=== PATIENT | female | born 1955 | race Caucasian/White ===

== ENCOUNTER 2018-03-11 07:59 | Emergency (ER) | payer MEDICAID ==
[2018-03-11 09:22] LABS: ADD MAN DIFF? NO
[2018-03-11 09:25] LABS: BASO % 0 % (0-3); EOS # 0.1 x10^3/uL (0.0-0.7); EOS % 2 % (0-3); HEMATOCRIT 30.2 % (36.0-47.0); HEMOGLOBIN 10.5 g/dL (12.0-15.5); LYMPH % 33 % (24-48); MEAN CORPUSCULAR HEMOGLOBIN 31 pg (25-35); MEAN CORPUSCULAR HGB CONC 35 g/dL (31-37); MEAN CORPUSCULAR VOLUME 90 fL (79-100); MONO # 0.8 x10^3/uL (0.0-1.1); MONO % 14 % (0-9); NEUT % 51 % (31-73); PLATELET COUNT 351 x10^3/uL (140-400); RED BLOOD COUNT 3.36 x10^6/uL (3.50-5.40); RED CELL DISTRIBUTION WIDTH 14.5 % (11.5-14.5); WHITE BLOOD COUNT 5.9 x10^3/uL (4.0-11.0)
[2018-03-11 09:35] LABS: ANION GAP 8 (6-14); BLOOD UREA NITROGEN 7 mg/dL (7-20); CALCIUM 8.4 mg/dL (8.5-10.1); CARBON DIOXIDE 28 mmol/L (21-32); CHLORIDE 95 mmol/L (98-107); CREATININE 0.6 mg/dL (0.6-1.0); GLUCOSE 92 mg/dL (70-99); POTASSIUM 4.6 mmol/L (3.5-5.1); SODIUM 131 mmol/L (136-145)
[2018-03-11 09:42] LABS: ALBUMIN 3.6 g/dL (3.4-5.0); ALK PHOS 92 U/L (46-116); ALT (SGPT) 21 U/L (14-59); AST (SGOT) 13 U/L (15-37); DIRECT BILIRUBIN < 0.1 mg/dL (0.0-0.2); LIPASE 152 U/L (73-393); TOTAL BILIRUBIN 0.2 mg/dL (0.2-1.0); TOTAL PROTEIN 7.1 g/dL (6.4-8.2); VAL ACID 83 mcg/mL (50-100)
[2018-03-11 09:55] LABS: INR 1.1 (0.8-1.1); PARTIAL THROMBOPLASTIN TIME 32 SEC (24-38); PROTHROMBIN TIME PATIENT 13.3 SEC (11.7-14.0)
[2018-03-11 10:04] LABS: BILIRUBIN,URINE NEGATIVE (NEG); CLARITY,URINE CLEAR; COLOR,URINE YELLOW; GLUCOSE,URINE NEGATIVE (NEG); NITRITE,URINE NEGATIVE (NEG); PH,URINE 7.5; PROTEIN,URINE NEGATIVE (NEG-TRACE); UROBILINOGEN,URINE 0.2 mg/dL (0.2 mg/dL)
[2018-03-11 10:12] LABS: SQUAMOUS EPITHELIAL CELL,UR FEW /LPF
[2018-03-11 10:13] LABS: BACTERIA,URINE 0 /HPF (0-FEW); RBC,URINE 0 /HPF (0-2); WBC,URINE OCC /HPF (0-4)
[2018-03-11] MEDS: IOHEXOL 300 MG/ML 100ML VIAL. IV (10:20)
[2018-03-11] MEDS ORDERED: CONTRAST GIVEN. MC (10:30)
[2018-03-11] MEDS: MORPHINE SULFATE 4 MG/ML DISP.SYRIN. IV (10:46)
== END 2018-03-11 13:52 | disposition home or self-care (01) ==
LOC: ER 07:59
DX: R10.13 Epigastric pain (principal); F31.9 Bipolar disorder, unspecified; E78.00 Pure hypercholesterolemia, unspecified; J44.9 Chronic obstructive pulmonary disease, unspecified; I25.2 Old myocardial infarction; F17.200 Nicotine dependence, unspecified, uncomplicated; Z86.73 Personal history of transient ischemic attack (TIA), and cerebral infarction without residual deficits; Z90.49 Acquired absence of other specified parts of digestive tract
CPT/HCPCS: 36415; 74177; 76705; 80048; 80076; 80164; 81001; 83690; 85025; 85610; 85730; 96374; 99285-25; J2270; Q9967

== ENCOUNTER 2018-09-08 01:57 | Emergency (ER) | payer MEDICAID ==
[~2018-09-08] VITALS: Ht 149.9 cm; Wt 72.6 kg
[~2018-09-08 01:57] MED LIST: ACET325T9 PO; ALBU2.5V8 INH; ATOR40TA59 PO; CALC200T3 PO; CLOP75TA PO; CYCL10TA2 PO; DIVA500T17 PO; DOCU-109 PO; FLUT1DIS IH; FURO20TA3 PO; LIDO700A21 TP; MEMA10TA PO; OLAN20TA15 PO; SERT100T PO; SERT50TA8 PO; TRAM50TA PO; TRAZ-86 PO
[2018-09-08] MEDS ORDERED: HYDROcodone/APAP 5/325MG 1 TAB TABLET PO ONE (02:30)
--- NOTE | 2018-09-08 03:04 | PHYS DOC ---
Past Medical History Past Medical History: Heart Disease, Stroke Additional Past Medical Histor: Osteopenia,Osteoporosis Past Surgical History: Appendectomy, Oophorectomy Additional Past Surgical Histo: R)ovary,adhesions around sm.intestine removed Alcohol Use: None Drug Use: None Adult General Chief Complaint Chief Complaint: MECHANICAL FALL HPI HPI Patient is a 62-year-old female who presents via EMS after reportedly falling to her knees and bumping her right shoulder against her roommate's bed. Patient recently had fractured her shoulder and has been scheduled for surgery of the shoulder. Patient complains of bilateral knee pain and right shoulder pain. She rates pain to be a 10 out of 10. She states that pain is worsened with any movement. Review of Systems Review of Systems Constitutional: Denies fever or chills [] Respiratory: Denies cough or shortness of breath [] Cardiovascular: No additional information not addressed in HPI [] Musculoskeletal: Complains of right shoulder and bilateral knee pain [] Integument: Denies rash or skin lesions [] Current Medications Current Medications Current Medications Medications (Trade) Dose Ordered Sig/Maikel Start Time Stop Time Status Last Admin Dose Admin Acetaminophen/ Hydrocodone Bitart (Lortab 5/325) 1 tab 1X ONCE 09/08/18 02:30 09/08/18 02:31 DC 09/08/18 02:35 1 TAB Allergies Allergies Allergies Coded Allergies Type Severity Reaction Last Updated Verified No Known Drug Allergies 03/11/18 No Physical Exam Physical Exam Constitutional: Well developed, well nourished, no acute distress, non-toxic appearance. [] HENT: Normocephalic, atraumatic. [] Eyes: PERRLA, EOMI, conjunctiva normal, no discharge. [] Neck: Normal range of motion, no tenderness, supple, no stridor. [] Cardiovascular: Regular rate and rhythm [] Lungs & Thorax: Bilateral breath sounds clear to auscultation [] Extremities: Right shoulder demonstrates decreased range of motion due to pain. Patient reports to tenderness to palpation over bilateral patellae of knees. [] Current Patient Data Vital Signs Vital Signs Date Time Temp Pulse Resp B/P (MAP) Pulse Ox O2 Delivery O2 Flow Rate FiO2 09/08/18 02:35 20 09/08/18 02:03 97.4 99 160/68 (98) 95 Room Air 97.4 EKG EKG [] Radiology/Procedures Radiology/Procedures [] Impressions: Bilateral knee x-rays demonstrate no acute bony abnormalities. Right shoulder demonstrates no significant change from prior study. Course & Med Decision Making Course & Med Decision Making Pertinent Labs and Imaging studies reviewed. (See chart for details) [] Dragon Disclaimer Dragon Disclaimer This electronic medical record was generated, in whole or in part, using a voice recognition dictation system. Departure Departure Impression: Primary Impression: Humeral head fracture Additional Impression: Knee contusion Disposition: 01 HOME, SELF-CARE Condition: STABLE Referrals: UNKNOWN PCP NAME (PCP) Patient Instructions: Contusion, Shoulder Fracture Problem Qualifiers Primary Impression: Humeral head fracture Encounter type: subsequent encounter Fracture type: closed Laterality: right Fracture healing: with nonunion Qualified Codes: S42.291K - Other displaced fracture of upper end of right humerus, subsequent encounter for fracture with nonunion Additional Impression: Knee contusion Encounter type: initial encounter Laterality: unspecified laterality Qualified Codes: S80.00XA - Contusion of unspecified knee, initial encounter TAHIR CARRASCO Jr., DO Sep 08, 2018 03:04
[2018-09-08] MEDS ORDERED: HYDR-3164 PO (04:19)
[2018-09-08 04:44] VITALS: BP 160/66
--- NOTE | 2018-09-08 09:03 | RAD ---
Portable right shoulder, 3 views, 09/08/2018: HISTORY: Fall, fracture Comparison is made to a study from 08/30/2018. The fracture of the right humeral head and neck is again identified. There is slight lateral displacement of the greater tuberosity fragment. No dislocation is evident. No additional fracture is seen. There is moderate degenerative change at the AC joint. IMPRESSION: Unchanged humeral neck/head fracture. Bilateral knees, 6 views, 09/08/2018: HISTORY: Fall No acute fracture or dislocation is identified. There is a small loose body projected over the anterolateral aspect of the right knee joint. There is soft tissue fullness in the right suprapatellar bursa suggesting a small joint effusion. There is subcutaneous edema anteriorly. On the left, there is a large well-corticated bony fragment present posteromedially compatible with an old fracture. No acute fracture or dislocation is identified. No left joint effusion is seen. IMPRESSION: 1. Large old appearing bony fragment along the posterior aspect of the medial femoral condyle on the left. 2. Small right knee joint effusion. 3. Small loose body in the right knee joint. 4. No acute bony abnormality is detected. Electronically signed by: Jose Santillan MD (09/08/2018 8:58 AM) [facility]
[2018-10-10] MEDS ORDERED: POLY17PO29 PO (23:13)
[2018-10-10] MEDS ORDERED: RANI150T2 PO (23:13)
[2018-10-10] MEDS ORDERED: SENN8.6T99 PO (23:13)
[2018-10-16] MEDS ORDERED: TRAM50TA PO (11:16)
[2018-10-16] MEDS ORDERED: CETI10TA16 PO (11:16)
[2018-10-16] MEDS ORDERED: Lido:Maalox 1:1 PO (11:16)
[2018-10-16] MEDS ORDERED: AMLO5TAB10 PO (11:16)
[2018-10-16] MEDS ORDERED: HYDR-2868 PO (11:16)
== END 2018-09-08 04:30 | disposition home or self-care (01) ==
LOC: ER 01:57
DX: S42.291K Other displaced fracture of upper end of right humerus, subsequent encounter for fracture with nonunion (principal); S80.02XA Contusion of left knee, initial encounter; S80.01XA Contusion of right knee, initial encounter; Z86.73 Personal history of transient ischemic attack (TIA), and cerebral infarction without residual deficits; Z86.79 Personal history of other diseases of the circulatory system; W18.39XA Other fall on same level, initial encounter; Y93.89 Activity, other specified; Y92.89 Other specified places as the place of occurrence of the external cause; Y99.8 Other external cause status
CPT/HCPCS: 73030; 73562; 99284

== ENCOUNTER 2019-04-27 15:39 | Emergency (ER) | payer MEDICAID ==
[~2019-04-27] VITALS: Ht 152.4 cm; Wt 89.4 kg
[~2019-04-27 15:39] MED LIST changes: +AMLO5TAB10 PO; +CETI10TA16 PO; +HYDR-2868 PO; +HYDR-3164 PO; +Lido:Maalox 1:1 PO; +POLY17PO29 PO; +RANI150T2 PO; +SENN8.6T99 PO
--- NOTE | 2019-04-27 16:27 | NUR ---
Pt reports scratching the back of her right ear and subsequently losing her earring out of the same ear. This tech was only able to locate the back of the earring which was placed in a biohazard bag labeled with pt label and placed on table in room.
[2019-04-27 16:28] LABS: BASO % 1 % (0-3); EOS # 0.2 x10^3/uL (0.0-0.7); EOS % 3 % (0-3); HEMATOCRIT 28.6 % (36.0-47.0); HEMOGLOBIN 9.9 g/dL (12.0-15.5); LYMPH # 2.4 x10^3/uL (1.0-4.8); LYMPH % 30 % (24-48); MEAN CORPUSCULAR HEMOGLOBIN 29 pg (25-35); MEAN CORPUSCULAR HGB CONC 35 g/dL (31-37); MEAN CORPUSCULAR VOLUME 83 fL (79-100); MONO # 0.9 x10^3/uL (0.0-1.1); MONO % 11 % (0-9); NEUT # 4.4 x10^3/uL (1.8-7.7); NEUT % 56 % (31-73); PLATELET COUNT 400 x10^3/uL (140-400); RED BLOOD COUNT 3.44 x10^6/uL (3.50-5.40); RED CELL DISTRIBUTION WIDTH 15.8 % (11.5-14.5); WHITE BLOOD COUNT 7.9 x10^3/uL (4.0-11.0)
[2019-04-27 16:37] LABS: CALCIUM 8.6 mg/dL (8.5-10.1); CREATININE 0.7 mg/dL (0.6-1.0); GFR 85.1; POTASSIUM 4.3 mmol/L (3.5-5.1)
[2019-04-27 16:43] LABS: ALBUMIN 3.3 g/dL (3.4-5.0); ALBUMIN/GLOBULIN RATIO 0.8 (1.0-1.7); MAGNESIUM 1.9 mg/dL (1.8-2.4); TOTAL BILIRUBIN 0.1 mg/dL (0.2-1.0); TOTAL PROTEIN 7.2 g/dL (6.4-8.2)
[2019-04-27] MEDS ORDERED: HYDROcodone/APAP 5/325MG 1 TAB TABLET PO ONE (17:00)
[2019-04-27 17:11] LABS: BILIRUBIN,URINE NEGATIVE (NEG); CLARITY,URINE CLEAR; COLOR,URINE YELLOW; NITRITE,URINE NEGATIVE (NEG); PH,URINE 6.5; PROTEIN,URINE NEGATIVE (NEG-TRACE); UROBILINOGEN,URINE 0.2 mg/dL (0.2 mg/dL)
[2019-04-27 17:19] LABS: BARBITURATES NEG (NEG); BENZODIAZEPINES NEG (NEG); CANNABINOIDS NEG (NEG); COCAINE NEG (NEG); METHADONE NEG (NEG); OPIATES NEG (NEG); PHENCYCLIDINE NEG (NEG); RBC,URINE 0 /HPF (0-2); SQUAMOUS EPITHELIAL CELL,UR MOD /LPF
[2019-04-27 17:20] LABS: BACTERIA,URINE FEW /HPF (0-FEW)
[2019-04-27 17:21] LABS: AMPHETAMINE/METHAMPHETAMINE NEG (NEG)
--- NOTE | 2019-04-27 17:38 | RAD ---
Exam performed: CT scan of the head and cervical spine without contrast. Date of Service: 04/27/2019 Comparison: None available Clinical History: Fall Technique: Helical acquisitions are obtained from the foramen magnum to the vertex without intravenous administration of contrast. In addition helical acquisitions are obtained through the cervical spine. Sagittal and coronal reformatted images are obtained and reviewed. CT scan head findings: Prominence of cortical sulci and ventricular system is noted consistent with age-related atrophy. There are areas of low-attenuation in both periventricular and subcortical deep white matter suggesting small vessel ischemic changes. Normal tamayo-white differentiation is maintained. There is no extra axial fluid collection, intraparenchymal hemorrhage or mass lesion. The visualized orbits, paranasal sinuses and the mastoid air cells are clear. The calvarium is intact. Impression: 1. No acute intracranial process detected. 2. Age-related atrophy and bilateral periventricular small vessel ischemic changes. End Impression. CT cervical spine findings: There is slight reversal of cervical curvature with grade 1 anterolisthesis of C5 over C6. The vertebral body heights are maintained. There is mild narrowing of C5/6 and C6/7 Intravertebral disc spaces with mild osteophytic spurring. Bilateral apophyseal joint hypertrophic changes are seen at C4-5 and C5-6 bilaterally. There No prevertebral soft tissue swelling is identified. There are no fractures. No definite lymphadenopathy or masses are seen within the neck. The visualized thyroid and salivary glands appears preserved. Impression: 1. Mild spondylotic changes and degenerative disc disease. 2. No acute abnormality seen in the CT scan cervical spine. PQRS Compliance Statement: One or more of the following individualized dose reduction techniques were utilized for this examination: 1. Automated exposure control 2. Adjustment of the mA and/or kV according to patient size 3. Use of iterative reconstruction technique Electronically signed by: Tianna Browne MD (04/27/2019 5:35 PM) [facility]
[2019-04-27] MEDS ORDERED: predniSONE 10 MG TABLET PO ONE (18:45)
[2019-04-27] MEDS ORDERED: CYCLOBENZAPRINE 10 MG TABLET. PO ONE (18:45)
[2019-04-27 19:53] VITALS: BP 135/60
--- NOTE | 2019-04-27 20:04 | PHYS DOC ---
Past Medical History Past Medical History: Bipolar, COPD, Depression, High Cholesterol, Heart Disease, Stroke, Other Additional Past Medical Histor: Osteopenia,Osteoporosis,ALZHEIMER'S (PATRICIA VAUGHAN APRN) Past Surgical History: Appendectomy, Oophorectomy, Other Additional Past Surgical Histo: R)ovary,adhesions around sm.intestine removed (PATRICIA VAUGHAN APRN) Alcohol Use: Occasionally Drug Use: None (PATRICIA VAUGHAN APRN) Adult General Chief Complaint Chief Complaint: HEADACHE HPI HPI Patient is a 63 year old female with a history of depression, bipolar, anxiety, hypertension, who presents to the ED today to be evaluated after falling at the long-term. Patient states she lost her balance and fell, no loss of consciousness. She is complaining of 10 out of 10 posterior head pain as well as low back pain. Denies any neck pain. Denies anything exacerbating or relieving her pain. She states she was given tramadol with no relief. She states she is on Plavix. (PATRICIA VAUGHAN APRN) Review of Systems Review of Systems Constitutional: Denies fever or chills [] Eyes: Denies change in visual acuity, redness, or eye pain [] HENT: Denies nasal congestion or sore throat [] Respiratory: Denies cough or shortness of breath [] Cardiovascular: No additional information not addressed in HPI [] GI: Denies abdominal pain, nausea, vomiting, bloody stools or diarrhea [] : Denies dysuria or hematuria [] Musculoskeletal: Reports low back pain Integument: Denies rash or skin lesions [] Neurologic: Reports posterior head pain, denies focal weakness or sensory changes [] All other systems were reviewed and found to be within normal limits, except as documented in this note. (PATRICIA VAUGHAN APRN) Current Medications Current Medications Current Medications Medications (Trade) Dose Ordered Sig/Maikel Start Time Stop Time Status Last Admin Dose Admin Acetaminophen/ Hydrocodone Bitart (Lortab 5/325) 1 tab 1X ONCE 04/27/19 17:00 04/27/19 17:01 DC 04/27/19 17:29 1 TAB Cyclobenzaprine HCl (Flexeril) 10 mg 1X ONCE 04/27/19 18:45 04/27/19 18:46 DC 04/27/19 19:14 10 MG Prednisone (Prednisone) 50 mg 1X ONCE 04/27/19 18:45 04/27/19 18:46 DC 04/27/19 19:14 50 MG (GUILLERMO GALINDO DO) Allergies Allergies Allergies Coded Allergies Type Severity Reaction Last Updated Verified No Known Drug Allergies 03/11/18 No (GUILLERMO GALINDO DO) Physical Exam Physical Exam Constitutional: Well developed, well nourished, no acute distress, non-toxic appearance. [] HENT: Normocephalic, atraumatic, bilateral external ears normal, oropharynx moist, no oral exudates, nose normal. [] Eyes: PERRLA, EOMI, conjunctiva normal, no discharge. [] Neck: Normal range of motion, no tenderness, supple, no stridor. [] Cardiovascular:Heart rate regular rhythm, no murmur [] Lungs & Thorax: Bilateral breath sounds clear to auscultation [] Abdomen: Bowel sounds normal, soft, no tenderness, no masses, no pulsatile masses. [] Skin: Warm, dry, no erythema, no rash. [] Back: No tenderness, no CVA tenderness. [] Extremities: No tenderness, no cyanosis, no clubbing, ROM intact, no edema. [] Neurologic: Alert and oriented X 3, normal motor function, normal sensory function, no focal deficits noted. Cranial nerves II through XII intact Psychologic: Affect normal, judgement normal, mood normal. [] (PATRICIA VAUGHAN APRN) Current Patient Data Vital Signs Vital Signs Date Time Temp Pulse Resp B/P (MAP) Pulse Ox O2 Delivery O2 Flow Rate FiO2 04/27/19 19:53 88 16 93 04/27/19 17:29 Room Air 04/27/19 15:45 98.0 161/67 (98) 98.0 (GUILLERMO GALINDO DO) Lab Values Laboratory Tests Test 04/27/19 16:18 04/27/19 16:55 White Blood Count 7.9 x10^3/uL (4.0-11.0) Red Blood Count 3.44 x10^6/uL (3.50-5.40) L Hemoglobin 9.9 g/dL (12.0-15.5) L Hematocrit 28.6 % (36.0-47.0) L Mean Corpuscular Volume 83 fL (79-100) Mean Corpuscular Hemoglobin 29 pg (25-35) Mean Corpuscular Hemoglobin Concent 35 g/dL (31-37) Red Cell Distribution Width 15.8 % (11.5-14.5) H Platelet Count 400 x10^3/uL (140-400) Neutrophils (%) (Auto) 56 % (31-73) Lymphocytes (%) (Auto) 30 % (24-48) Monocytes (%) (Auto) 11 % (0-9) H Eosinophils (%) (Auto) 3 % (0-3) Basophils (%) (Auto) 1 % (0-3) Neutrophils # (Auto) 4.4 x10^3/uL (1.8-7.7) Lymphocytes # (Auto) 2.4 x10^3/uL (1.0-4.8) Monocytes # (Auto) 0.9 x10^3/uL (0.0-1.1) Eosinophils # (Auto) 0.2 x10^3/uL (0.0-0.7) Basophils # (Auto) 0.0 x10^3/uL (0.0-0.2) Sodium Level 132 mmol/L (136-145) L Potassium Level 4.3 mmol/L (3.5-5.1) Chloride Level 94 mmol/L (98-107) L Carbon Dioxide Level 32 mmol/L (21-32) Anion Gap 6 (6-14) Blood Urea Nitrogen 8 mg/dL (7-20) Creatinine 0.7 mg/dL (0.6-1.0) Estimated GFR (Cockcroft-Gault) 85.1 BUN/Creatinine Ratio 11 (6-20) Glucose Level 102 mg/dL (70-99) H Calcium Level 8.6 mg/dL (8.5-10.1) Magnesium Level 1.9 mg/dL (1.8-2.4) Total Bilirubin 0.1 mg/dL (0.2-1.0) L Aspartate Amino Transferase (AST) 23 U/L (15-37) Alanine Aminotransferase (ALT) 42 U/L (14-59) Alkaline Phosphatase 76 U/L (46-116) Creatine Kinase 99 U/L (26-192) Creatine Kinase MB (Mass) 1.1 ng/mL (0.0-3.6) Creatine Kinase MB Relative Index 1.1 % (0-4) Troponin I Quantitative < 0.017 ng/mL (0.000-0.055) LA-Gue-I-Type Natriuretic Peptide 63 pg/mL (0-124) Total Protein 7.2 g/dL (6.4-8.2) Albumin 3.3 g/dL (3.4-5.0) L Albumin/Globulin Ratio 0.8 (1.0-1.7) L Urine Collection Type Unknown Urine Color Yellow Urine Clarity Clear Urine pH 6.5 Urine Specific Mcgrady 1.020 Urine Protein Negative mg/dL (NEG-TRACE) Urine Glucose (UA) Negative mg/dL (NEG) Urine Ketones (Stick) Negative mg/dL (NEG) Urine Blood Negative (NEG) Urine Nitrite Negative (NEG) Urine Bilirubin Negative (NEG) Urine Urobilinogen Dipstick 0.2 mg/dL (0.2 mg/dL) Urine Leukocyte Esterase Small (NEG) Urine RBC 0 /HPF (0-2) Urine WBC 1-4 /HPF (0-4) Urine Squamous Epithelial Cells Mod /LPF Urine Bacteria Few /HPF (0-FEW) Urine Opiates Screen Neg (NEG) Urine Methadone Screen Neg (NEG) Urine Barbiturates Neg (NEG) Urine Phencyclidine Screen Neg (NEG) Urine Amphetamine/Methamphetamine Neg (NEG) Urine Benzodiazepines Screen Neg (NEG) Urine Cocaine Screen Neg (NEG) Urine Cannabinoids Screen Neg (NEG) Urine Ethyl Alcohol Neg (NEG) Laboratory Tests 04/27/19 16:18 Laboratory Tests 04/27/19 16:18 (GUILLERMO GALINDO DO) EKG EKG [] (PATRICIA VAUGHAN APRN) Radiology/Procedures Radiology/Procedures [] (PATRICIA VAUGHAN APRN) Course & Med Decision Making Course & Med Decision Making Pertinent Labs and Imaging studies reviewed. (See chart for details) This is a 63-year-old female patient who presents to the ED today to be ev aluated after falling at the long-term. Complaining of low back pain and posterior head pain. CT of the lumbar spine, cervical spine, head interpreted by radiologist are negative for any acute findings. Patient will be discharged back to the long-term. (PATRICIA VAUGHAN APRN) Dragon Disclaimer Dragon Disclaimer This electronic medical record was generated, in whole or in part, using a voice recognition dictation system. (PATRICIA VAUGHAN APRN) Departure Departure Impression: Primary Impression: Fall from standing Additional Impressions: Lumbar contusion Head contusion Disposition: HOME, SELF-CARE Condition: STABLE Referrals: RICHARD MEJIA MD (PCP) Follow-up in 1-2 weeks Patient Instructions: Back Pain, Adult, Contusion, [id number], Fall Pr evention and Home Safety Additional Instructions: You were evaluated in the emergency room after falling, your CAT scan of the head, cervical spine and lumbar spine are negative for any acute findings. Ice elevate the affected regions. Take the prescribed medications as ordered. Attending Signature Attending Signature I have reviewed the PA/ELECTRICAL SIGN WIRER's note and plan of care. I was available for consultation as needed during the patient's visit in the emergency department. I agree with the clinical impression, plan, and disposition. (GUILLERMO GALINDO DO) Problem Qualifiers Primary Impression: Fall from standing Encounter type: initial encounter Qualified Codes: W19.XXXA - Unspecified fall, initial encounter Additional Impressions: Lumbar contusion Encounter type: initial encounter Qualified Codes: S30.0XXA - Contusion of lower back and pelvis, initial encounter Head contusion Encounter type: initial encounter Contusion of head detail: scalp Qualified Codes: S00.03XA - Contusion of scalp, initial encounter PATRICIA VAUGHAN APRN Apr 27, 2019 20:04 GUILLERMO GALINDO DO Apr 29, 2019 03:56
--- NOTE | 2019-04-28 06:46 | EKG ---
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
== END 2019-04-27 20:46 | disposition home or self-care (01) ==
LOC: ER 15:39
DX: S00.83XA Contusion of other part of head, initial encounter (principal); S30.0XXA Contusion of lower back and pelvis, initial encounter; F31.9 Bipolar disorder, unspecified; J44.9 Chronic obstructive pulmonary disease, unspecified; E78.00 Pure hypercholesterolemia, unspecified; I11.9 Hypertensive heart disease without heart failure; Z86.73 Personal history of transient ischemic attack (TIA), and cerebral infarction without residual deficits; Z90.89 Acquired absence of other organs; Z90.721 Acquired absence of ovaries, unilateral; W18.39XA Other fall on same level, initial encounter; Y93.89 Activity, other specified; Y92.89 Other specified places as the place of occurrence of the external cause; Y99.8 Other external cause status
CPT/HCPCS: 36415; 70450; 72125; 72131; 80053; 80307; 81001; 82553; 83735; 83880; 84484; 85025; 87086; 93005; 99285; J7512

== ENCOUNTER → 2019-09-14 | Outpatient (CLI) | payer MEDICAID ==
[2019-09-02 15:00] VITALS: BP 110/68
[~2019-09-14] MED LIST changes: +HYDR-2761 PO; +LEVO500T59 PO; +TRAZ-123 PO; -TRAZ-86 PO
--- NOTE | 2019-09-14 16:51 | KCIC ---
Examination: CT HEAD WO CONTRAST History: Subdural hematoma follow-up Comparison/Correlation: 09/01/2019 CT head without contrast Findings: Axial images of the head were obtained without contrast. Ventricles are normal size. No new intracranial hemorrhage, shift, or mass effect. Left parafalcine hematoma previously seen is much less evident. Thickness of 0.2 cm transverse at this site is noted as compared to the previous exam with thickness of 0.3 cm transverse. It is still of slightly high density but less than the prior exam. Globes and optic nerves are unremarkable. Defects involving the medial wong of the maxillary sinuses presumably representing previous intervention noted. Subgaleal hematoma or other soft tissue density again is seen at the posterior vertex. Impression: No new foci of hemorrhage or other new suspicious finding. Left parafalcine hematoma previously described is decrease in volume. PQRS Compliance Statement: One or more of the following individualized dose reduction techniques were utilized for this examination: 1. Automated exposure control 2. Adjustment of the mA and/or kV according to patient size 3. Use of iterative reconstruction technique Electronically signed by: Juventino Hilario MD (09/14/2019 4:48 PM) [facility]
== END | disposition home or self-care (01) ==
LOC: KCIC CT 10:48
PROVIDERS: ATTEND Psychiatry & Neurology Neurology with Special Qualifications in Child Neurology
DX: S06.5X9A Traumatic subdural hemorrhage with loss of consciousness of unspecified duration, initial encounter (principal); X58.XXXA Exposure to other specified factors, initial encounter; Y93.89 Activity, other specified; Y92.89 Other specified places as the place of occurrence of the external cause; Y99.8 Other external cause status
CPT/HCPCS: 70450

== ENCOUNTER → 2019-10-19 | Outpatient (CLI) | payer MEDICAID ==
[2019-09-02 15:00] VITALS: BP 110/68
[~2019-10-19] MED LIST changes: +IOHEXOL 300 MG/ML 100ML VIAL. IV ONE
--- NOTE | 2019-10-19 16:51 | KCIC ---
CT CHEST W/CONTRAST Indication: Pleural effusion Technique: Postcontrast CT imaging was performed of the chest, multiplanar reconstruction images submitted. One or more of the following individualized dose reduction techniques were utilized for this examination: 1. Automated exposure control 2. Adjustment of the mA and/or kV according to patient size 3. Use of iterative reconstruction technique. Comparison: Chest radiograph August 31, 2019 Findings: There is very small dependent right pleural effusion. As best seen image 35 series 2, there is focus of peripheral density at level of the lateral aspect of the right middle lobe about 2.9 cm transverse by 3.6 cm with internal more fluidlike entity characteristics, no peripheral enhancement. There is other mild, peripheral, more linear-appearing density of the right middle lobe extending to the pleural surface. There is also minimal right upper lobe atelectasis. There is no left pleural fluid, pneumothorax or pericardial fluid. There is minimal coronary calcification. Thoracic aortic caliber is within normal limits, no intraluminal flap, scattered plaque present. There is diffuse hepatic steatosis. No significantly enlarged nodes are identified of the chest. There is a tiny 2 mm right middle lobe nodule axial image 34 series 2. There is small 2 mm left lower lobe nodule image 39 series 2. There is small 2 mm nodule along the left major fissure image 25, also 2 mm subpleural left lower lobe nodule seen on the same image. IMPRESSION: 1. There is very small dependent right pleural effusion, also more localized focus of peripheral density of the right middle lobe likely more localized pleural-based fluid laterally. There is mild peripheral right middle lobe density, morphology more suggestive of atelectasis than infiltrate. There is also minimal right upper lobe atelectasis. Given the uncertainty of the etiology of the pleural fluid, short-term follow-up to assess for resolution of the parenchymal density of the right middle lobe may be beneficial such as in 3 months. There are a few other tiny pulmonary nodules, optional 12 month follow-up of the nodules as per revised Fleischner guidelines for nodules of this size. 2. There is minimal coronary calcification. 3. There is hepatic steatosis. Electronically signed by: Venu Oconnell MD (10/19/2019 4:48 PM) [id number]
== END ==
LOC: KCIC CT 12:44
PROVIDERS: ATTEND Psychiatry & Neurology Neurology with Special Qualifications in Child Neurology
DX: K76.0 Fatty (change of) liver, not elsewhere classified (principal); I25.10 Atherosclerotic heart disease of native coronary artery without angina pectoris; J90 Pleural effusion, not elsewhere classified; J98.4 Other disorders of lung; J98.11 Atelectasis
CPT/HCPCS: 71260; Q9967

== ENCOUNTER 2019-11-01 16:34 | Inpatient (IN) | payer MEDICAID ==
[~2019-11-01] VITALS: Ht 152.4 cm; Wt 110.2 kg
[~2019-11-01 16:34] MED LIST changes: -IOHEXOL 300 MG/ML 100ML VIAL. IV ONE
[2019-11-01] MEDS ORDERED: ACETAMINOPHEN 325 MG TABLET. PO ONE (17:00)
[2019-11-01] MEDS ORDERED: methylPREDNISolone SOD SUCC PF 125 MG/2 ML VIAL. IV ONE (17:15)
[2019-11-01] MEDS ORDERED: IPRATRPIUM/ALBUTEROL 0.5/2.5MG 3 ML NEBU. NEB ONE (17:15)
--- NOTE | 2019-11-01 17:23 | PHYS DOC ---
Past Medical History Past Medical History: Bipolar, COPD, Depression, High Cholesterol, Heart Disease, Stroke, Other Additional Past Medical Histor: Osteopenia,Osteoporosis,ALZHEIMER'S Past Surgical History: Appendectomy, Oophorectomy, Other Additional Past Surgical Histo: R)ovary,adhesions around sm.intestine removed Smoking Status: Current Every Day Smoker Alcohol Use: Occasionally Drug Use: None Adult General Chief Complaint Chief Complaint: MECHANICAL FALL HPI HPI Patient is a 63 year old female who presents with brought in by [facility] from a nursing facility with multiple falls today and last week. They state that the patient is purposely during herself to the ground. EMS stated that the patient purposely threw herself off the EMS cot. When patient arrived she had 102.7 fever and 120 heart rate. Patient was 91% on room air. Patient has a history of COPD, depression, Alzheimer's, GERD, hypertension, high cholesterol, bipolar, smoker, heart disease. Review of Systems Review of Systems Constitutional: fever or chills [] Respiratory: cough or shortness of breath [] All other systems were reviewed and found to be within normal limits, except as documented in this note. Current Medications Current Medications Current Medications Medications (Trade) Dose Ordered Sig/Maikel Start Time Stop Time Status Last Admin Dose Admin Acetaminophen (Tylenol) 650 mg 1X ONCE 11/01/19 17:00 11/01/19 17:03 DC 11/01/19 17:13 650 MG Albuterol/ Ipratropium (Duoneb) 3 ml 1X ONCE 11/01/19 17:15 11/01/19 17:16 DC 11/01/19 18:07 3 ML Methylprednisolone Sodium Succinate (SOLU-Medrol 125MG VIAL) 125 mg 1X ONCE 11/01/19 17:15 11/01/19 17:16 DC 11/01/19 18:10 125 MG Piperacillin Sod/ Tazobactam Sod 3.375 gm/Sodium Chloride 50 ml @ 100 mls/hr 1X ONCE 11/01/19 18:30 11/01/19 18:59 DC 11/01/19 19:06 100 MLS/HR Sodium Chloride 1,000 ml @ 1,000 mls/hr 1X ONCE 11/01/19 17:30 11/01/19 18:29 DC 11/01/19 18:10 1,000 MLS/HR Allergies Allergies Allergies Coded Allergies Type Severity Reaction Last Updated Verified aspirin Allergy Intermediate 10/19/19 Yes codeine Allergy Intermediate 10/19/19 Yes hydrocodone Allergy Intermediate 10/19/19 Yes Physical Exam Physical Exam Constitutional: Well developed, well nourished, no acute distress, non-toxic ap pearance. [] HENT: Normocephalic, atraumatic, bilateral external ears normal, oropharynx moist, no oral exudates, nose normal. [] Eyes: PERRLA, EOMI, conjunctiva normal, no discharge. [] Neck: Normal range of motion, no tenderness, supple, no stridor. [] Cardiovascular:Heart rate regular rhythm, no murmur [] Lungs & Thorax: Bilateral breath sounds diminished to auscultation [] Abdomen: Bowel sounds normal, soft, no tenderness, no masses, no pulsatile masses. [] Skin: Warm, dry, no erythema, no rash. [] Back: No tenderness, no CVA tenderness. [] Extremities: No tenderness, no cyanosis, no clubbing, ROM intact, no edema. [] Neurologic: Alert and oriented X 3, normal motor function, normal sensory function, no focal deficits noted. [] Psychologic: Affect normal, judgement normal, mood normal. [] Current Patient Data Vital Signs Vital Signs Date Time Temp Pulse Resp B/P (MAP) Pulse Ox O2 Delivery O2 Flow Rate FiO2 11/01/19 19:10 100.9 108 99 100.9 11/01/19 18:10 Nasal Cannula 2.0 11/01/19 16:55 20 136/58 (84) Lab Values Laboratory Tests Test 11/01/19 17:15 11/01/19 17:30 11/01/19 17:35 White Blood Count 15.0 x10^3/uL (4.0-11.0) H Red Blood Count 3.70 x10^6/uL (3.50-5.40) Hemoglobin 10.4 g/dL (12.0-15.5) L Hematocrit 30.8 % (36.0-47.0) L Mean Corpuscular Volume 83 fL (79-100) Mean Corpuscular Hemoglobin 28 pg (25-35) Mean Corpuscular Hemoglobin Concent 34 g/dL (31-37) Red Cell Distribution Width 15.7 % (11.5-14.5) H Platelet Count 398 x10^3/uL (140-400) Neutrophils (%) (Auto) 84 % (31-73) H Lymphocytes (%) (Auto) 7 % (24-48) L Monocytes (%) (Auto) 8 % (0-9) Eosinophils (%) (Auto) 0 % (0-3) Basophils (%) (Auto) 0 % (0-3) Neutrophils # (Auto) 12.6 x10^3/uL (1.8-7.7) H Lymphocytes # (Auto) 1.0 x10^3/uL (1.0-4.8) Monocytes # (Auto) 1.2 x10^3/uL (0.0-1.1) H Eosinophils # (Auto) 0.1 x10^3/uL (0.0-0.7) Basophils # (Auto) 0.1 x10^3/uL (0.0-0.2) Segmented Neutrophils % 73 % (35-66) H Band Neutrophils % 17 % (0-9) H Lymphocytes % 5 % (24-48) L Monocytes % 4 % (0-10) Eosinophils % 1 % (0-5) Toxic Granulation Slight Platelet Estimate Adequate (ADEQUATE) Prothrombin Time 12.6 SEC (11.7-14.0) Prothrombin Time INR 1.0 (0.8-1.1) Sodium Level 133 mmol/L (136-145) L Potassium Level 4.1 mmol/L (3.5-5.1) Chloride Level 94 mmol/L (98-107) L Carbon Dioxide Level 29 mmol/L (21-32) Anion Gap 10 (6-14) Blood Urea Nitrogen 6 mg/dL (7-20) L Creatinine 0.8 mg/dL (0.6-1.0) Estimated GFR (Cockcroft-Gault) 72.9 BUN/Creatinine Ratio 8 (6-20) Glucose Level 127 mg/dL (70-99) H Lactic Acid Level 1.5 mmol/L (0.4-2.0) Calcium Level 8.2 mg/dL (8.5-10.1) L Total Bilirubin 0.2 mg/dL (0.2-1.0) Aspartate Amino Transferase (AST) 25 U/L (15-37) Alanine Aminotransferase (ALT) 47 U/L (14-59) Alkaline Phosphatase 102 U/L (46-116) Troponin I Quantitative < 0.017 ng/mL (0.000-0.055) SS-Qzi-U-Type Natriuretic Peptide 72 pg/mL (0-124) Total Protein 7.4 g/dL (6.4-8.2) Albumin 3.5 g/dL (3.4-5.0) Albumin/Globulin Ratio 0.9 (1.0-1.7) L Influenza Type A Antigen Negative (NEGATIVE) Influenza Type B Antigen Negative (NEGATIVE) O2 Saturation 98 % (92-99) Arterial Blood pH 7.41 (7.35-7.45) Arterial Blood pH (Temp corrected) 7.37 Arterial Blood pCO2 at Patient Temp 42 mmHg (35-46) Arterial Blood pCO2 (Temp correct) 46 mmHg Arterial Blood pO2 at Patient Temp 119 mmHg (65-108) H Arterial Blood pO2 (Temp corrected) 135 mmHg Arterial Blood HCO3 26 mmol/L (21-28) Arterial Blood Base Excess 1 mmol/L (-3-3) Oxyhemoglobin 96.1 % Methemoglobin 0.6 % (0.0-1.9) Carbon Monoxide, Quantitative 1.1 % (0.0-1.9) FiO2 2 lpm nc Urine Collection Type U cath Urine Color Yellow Urine Clarity Clear Urine pH 7.0 Urine Specific [place] 1.015 Urine Protein Negative mg/dL (NEG-TRACE) Urine Glucose (UA) Negative mg/dL (NEG) Urine Ketones (Stick) Negative mg/dL (NEG) Urine Blood Negative (NEG) Urine Nitrite Negative (NEG) Urine Bilirubin Negative (NEG) Urine Urobilinogen Dipstick 1.0 mg/dL (0.2 mg/dL) Urine Leukocyte Esterase Negative (NEG) Urine RBC Rare /HPF (0-2) Urine WBC 0 /HPF (0-4) Urine Squamous Epithelial Cells Few /LPF Urine Transitional Epithelial Cells Occ /LPF Urine Bacteria 0 /HPF (0-FEW) Laboratory Tests 11/01/19 17:15 Laboratory Tests 11/01/19 17:15 EKG EKG Sinus tachycardia and no STEMI[] Interpretation Time: [address] Rodriguez Radiology/Procedures Radiology/Procedures [] Impressions: [facility] [address] [place] [address] IMAGING REPORT Signed PATIENT: SAIMA RUTH MACCOUNT: [id number] : 1955 LOCATION: ER AGE: 63 SEX: F EXAM STATUS: REG ER ORD. PHYSICIAN: DARIN PADILLA APRN REASON: FALLS, AMS;NOT READY PROCEDURE: CT HEAD AND CERVICAL SPINE WO Exam: CT head and cervical spine INDICATION: Falls, altered mental status TECHNIQUE: Sequential axial images through the head and cervical spine were obtained without the administration of IV contrast. Comparisons: 09/14/2019 FINDINGS: Head: No focal parenchymal lesion or hemorrhage is identified. There is no midline shift or sulcal effacement. No acute vascular territory infarction is identified. Simons-white distinction is preserved. The ventricular system is within normal limits without compression hydrocephalus. The basal cisterns are well maintained. The visualized portions of the paranasal sinuses and mastoid air cells are well-pneumatized. No acute fractures. Cervical spine: Vertebral body heights are well-maintained. Grade 1 anterolisthesis of C4 on C5, C5 on C6 and C6 on C7. Mild bilateral facet arthropathy is also noted in the cervical spine. Fracture to the cervical spine is not identified. Multilevel spondylotic change in the cervical spine with degenerative disc disease greatest at C5-C6 and C6-C7. Mild bilateral facet arthropathy is also noted in the cervical spine. Visualized paraspinal soft tissues are unremarkable IMPRESSION: 1. No acute intracranial abnormality. 2. Negative CT C-spine for acute traumatic injury Exposure: One or more of the following in the visualized dose reduction techniques were utilized for this examination: 1. Automated exposure control 2. Adjustment of the MA and/or KV according to patient size Use of iterative of reconstructive technique Electronically signed by: Rosie Malone MD (11/01/2019 6:30 PM) [id number] DICTATED and SIGNED BY: ROSIE MALONE MD DATE: 11/01/19 183 [facility] [address] [place] [address] IMAGING REPORT Signed PATIENT: SAIMA RUTH MACCOUNT: [id number] : 1955 LOCATION: ER AGE: 63 SEX: F EXAM STATUS: REG ER ORD. PHYSICIAN: DARIN PADILLA APRN REASON: FEVER PROCEDURE: PORTABLE CHEST 1V Exam: Chest one view INDICATION: Fever TECHNIQUE: Frontal view of the chest Comparisons: 08/31/2019 FINDINGS: The cardiomediastinal silhouette and pulmonary vessels are within normal limits. Patchy airspace disease is noted within the right mid and lower lung. No pleural effusion. IMPRESSION: Patchy airspace disease in the right mid and lower lung favored represent pneumonia. Follow-up imaging posttreatment to ensure resolution is recommended. Electronically signed by: Rosie Malone MD (11/01/2019 7:18 PM) [id number] DICTATED and SIGNED BY: ROSIE MALONE MD DATE: 11/01/191917 Course & Med Decision Making Course & Med Decision Making Pertinent Labs and Imaging studies reviewed. (See chart for details) Patient is alert and oriented at this time. Patient has a history of being unste scooby on her feet. It is unknown of patient's normal mental status and if she is acting altered or not because nursing staff from the facility has not called to give report. EMS was unsure. Patient does follow commands as asked to her. Patient denies any pain, headache, dizziness, chest pain, abdominal pain, nausea, vomiting, diarrhea, numbness or tingling, focal weakness. Patient states she is short of air. She states she has had a cough for months. PERRLA. Patient moves herself and moves gets around in the bed and pulls herself up. Patient does seem like she has some tremors especially when she is trying to move. It is unknown whether this is normal for her not. Lungs are diminished throughout all lobes. No peripheral edema. EKG shows sinus tachycardia and no STEMI. Patient reports that she's been passing out several times today. Nursing staff did not report this to EMS and EMS did not report this to our nursing staff. Lactic acid normal. WBC and Bands in labs. Normal urinalysis. Chest x ray shows pneumonia. Patient given Zosyn and vancomycin ,as this is hospital acquired, in ED. Patient is admitted by Dr. Canada. [] Telma Disclaimer Dragon Disclaimer This electronic medical record was generated, in whole or in part, using a voice recognition dictation system. Departure Departure Impression: Primary Impression: Pneumonia Disposition: 09 ADMITTED INPATIENT Admitting Physician: CORTNEY Condition: STABLE Referrals: RICHARD MEJIA MD (PCP) Problem Qualifiers Primary Impression: Pneumonia Pneumonia type: due to unspecified organism Laterality: right Lung location: unspecified part of lung Qualified Codes: J18.9 - Pneumonia, unspecified organism DARIN PADILLA APRN Nov 01, 2019 17:23
[2019-11-01] MEDS ORDERED: IV NORMAL SALINE 1000ML BAG 1,000 ML IV ONE (17:30)
[2019-11-01 17:31] LABS: BASO # 0.1 x10^3/uL (0.0-0.2); BASO % 0 % (0-3); EOS # 0.1 x10^3/uL (0.0-0.7); EOS % 0 % (0-3); HEMATOCRIT 30.8 % (36.0-47.0); HEMOGLOBIN 10.4 g/dL (12.0-15.5); LYMPH % 7 % (24-48); MEAN CORPUSCULAR HEMOGLOBIN 28 pg (25-35); MEAN CORPUSCULAR HGB CONC 34 g/dL (31-37); MEAN CORPUSCULAR VOLUME 83 fL (79-100); MONO # 1.2 x10^3/uL (0.0-1.1); MONO % 8 % (0-9); NEUT # 12.6 x10^3/uL (1.8-7.7); NEUT % 84 % (31-73); PLATELET COUNT 398 x10^3/uL (140-400); RED CELL DISTRIBUTION WIDTH 15.7 % (11.5-14.5)
[2019-11-01 17:40] LABS: CALCIUM 8.2 mg/dL (8.5-10.1); CREATININE 0.8 mg/dL (0.6-1.0); GFR 72.9; POTASSIUM 4.1 mmol/L (3.5-5.1); PROTHROMBIN TIME PATIENT 12.6 SEC (11.7-14.0)
[2019-11-01 17:40] LABS: BASE EXCESS COOX 1 mmol/L (-3-3); CORRECTED PCO2 COOX 46 mmHg; CORRECTED PH COOX 7.37; CORRECTED PO2 COOX 135 mmHg; HCO3 COOX 26 mmol/L (21-28); METHEMOGLOBIN 0.6 % (0.0-1.9); OXYHEMOGLOBIN 96.1 %; PCO2 COOX 42 mmHg (35-46); PO2 COOX 119 mmHg (65-108); SAT O2 COOX 98 % (92-99)
[2019-11-01 17:42] LABS: BILIRUBIN,URINE NEGATIVE (NEG); CLARITY,URINE CLEAR; COLOR,URINE YELLOW; NITRITE,URINE NEGATIVE (NEG); PROTEIN,URINE NEGATIVE (NEG-TRACE)
[2019-11-01 17:47] LABS: BACTERIA,URINE 0 /HPF (0-FEW); RBC,URINE RARE /HPF (0-2); SQUAMOUS EPITHELIAL CELL,UR FEW /LPF; WBC,URINE 0 /HPF (0-4)
[2019-11-01 17:51] LABS: % BANDS 17 % (0-9); % EOS 1 % (0-5); % LYMPHS 5 % (24-48); % MONOS 4 % (0-10); % SEGS 73 % (35-66)
[2019-11-01 17:54] LABS: PLT ESTIMATE ADEQUATE (ADEQUATE); TOXIC GRANULATION SLIGHT
[2019-11-01 17:57] LABS: ALBUMIN 3.5 g/dL (3.4-5.0); ALBUMIN/GLOBULIN RATIO 0.9 (1.0-1.7); TOTAL BILIRUBIN 0.2 mg/dL (0.2-1.0); TOTAL PROTEIN 7.4 g/dL (6.4-8.2)
[2019-11-01 18:00] LABS: INFLUENZA A PATIENT NEGATIVE (NEGATIVE); INFLUENZA B PATIENT NEGATIVE (NEGATIVE)
[2019-11-01] MEDS ORDERED: PIPERACILLIN/TAZOBACTAM 3.375 GM in IV NORMAL SALINE 50ML 50 ML IV ONE (18:30)
--- NOTE | 2019-11-01 18:32 | RAD ---
Exam: CT head and cervical spine INDICATION: Falls, altered mental status TECHNIQUE: Sequential axial images through the head and cervical spine were obtained without the administration of IV contrast. Comparisons: 09/14/2019 FINDINGS: Head: No focal parenchymal lesion or hemorrhage is identified. There is no midline shift or sulcal effacement. No acute vascular territory infarction is identified. Simons-white distinction is preserved. The ventricular system is within normal limits without compression hydrocephalus. The basal cisterns are well maintained. The visualized portions of the paranasal sinuses and mastoid air cells are well-pneumatized. No acute fractures. Cervical spine: Vertebral body heights are well-maintained. Grade 1 anterolisthesis of C4 on C5, C5 on C6 and C6 on C7. Mild bilateral facet arthropathy is also noted in the cervical spine. Fracture to the cervical spine is not identified. Multilevel spondylotic change in the cervical spine with degenerative disc disease greatest at C5-C6 and C6-C7. Mild bilateral facet arthropathy is also noted in the cervical spine. Visualized paraspinal soft tissues are unremarkable IMPRESSION: 1. No acute intracranial abnormality. 2. Negative CT C-spine for acute traumatic injury Exposure: One or more of the following in the visualized dose reduction techniques were utilized for this examination: 1. Automated exposure control 2. Adjustment of the MA and/or KV according to patient size Use of iterative of reconstructive technique Electronically signed by: Rosie Kamara MD (11/01/2019 6:30 PM) [id number]
--- NOTE | 2019-11-01 19:21 | RAD ---
Exam: Chest one view INDICATION: Fever TECHNIQUE: Frontal view of the chest Comparisons: 08/31/2019 FINDINGS: The cardiomediastinal silhouette and pulmonary vessels are within normal limits. Patchy airspace disease is noted within the right mid and lower lung. No pleural effusion. IMPRESSION: Patchy airspace disease in the right mid and lower lung favored represent pneumonia. Follow-up imaging posttreatment to ensure resolution is recommended. Electronically signed by: Rosie Kamara MD (11/01/2019 7:18 PM) [id number]
--- NOTE | 2019-11-01 19:33 | EKG ---
[address] [place] [address] Test Date: 2019-11-01 Test Time: 17:13:48 Pat Name: SAIMA GONZALEZ Department: Room: Gender: F Corporate Analyst: : 1955 Requested By: DARIN PADILLA Order Number: [id number] Reading MD: Measurements Intervals Morse Rate: 118 P: 51 MD: 160 QRS: 15 QRSD: 78 T: 63 QT: 304 QTc: 428 Interpretive Statements SINUS TACHYCARDIA OTHERWISE NORMAL ECG No previous ECG available for comparison
[2019-11-01] MEDS ORDERED: ACETAMINOPHEN 325 MG TABLET. PO PRN (20:00)
[2019-11-01] MEDS ORDERED: VANCOMYCIN 1GM IVPB FOR OMNI 250 ML IV ONE (20:00)
[2019-11-01] MEDS ORDERED: ONDANSETRON PF 4 MG/2 ML VIAL. IV PRN (20:00)
[2019-11-01] MEDS: IPRATRPIUM/ALBUTEROL 0.5/2.5MG 3 ML NEBU. NEB SCH (20:16)
[2019-11-01 21:54] VITALS: BP 126/47
[2019-11-02 03:13] VITALS: BP 157/57
[2019-11-02] MEDS ORDERED: LIDO700A21 TP (05:00)
[2019-11-02] MEDS ORDERED: DICL100G18 TP (05:00)
[2019-11-02] MEDS ORDERED: GABA600T7 PO (05:00)
[2019-11-02] MEDS ORDERED: CLOP75TA PO (05:00)
[2019-11-02] MEDS ORDERED: IBUP-1027 PO (05:00)
[2019-11-02] MEDS ORDERED: FAMO20TA5 PO (05:00)
[2019-11-02 07:00] VITALS: BP 130/63
[2019-11-02] MEDS: IPRATRPIUM/ALBUTEROL 0.5/2.5MG 3 ML NEBU. NEB SCH ×3 (07:54→15:58)
[2019-11-02] MEDS: fentaNYL PF VIAL 100 MCG/2 ML VIAL IV PRN ×3 (07:56→18:26)
[2019-11-02] MEDS ORDERED: ACETAMINOPHEN 325 MG TABLET. PO PRN (08:45)
[2019-11-02] MEDS ORDERED: ALBUTEROL SULFATE 2.5 MG/3 ML NEBU. NEB PRN (08:45)
[2019-11-02] MEDS ORDERED: CALCIUM CARBONATE 500 MG TAB.CHEW PO PRN (08:45)
[2019-11-02] MEDS ORDERED: LIDOCAINE (700MG/PATCH) PATCH. TP SCH (09:00)
[2019-11-02] MEDS: DICLOFENAC SODIUM 1% TOPICAL GEL 100GM TUBE. TP SCH ×4 (09:00→20:30)
[2019-11-02] MEDS ORDERED: SERTRALINE HCL PO SCH (09:00)
[2019-11-02] MEDS ORDERED: FAMOTIDINE 20 MG TABLET. PO SCH (09:00)
[2019-11-02] MEDS: DOCUSATE SODIUM 100 MG CAPSULE. PO SCH ×2 (09:00→20:23)
[2019-11-02] MEDS: POLYETHYLENE GLYCOL 3350 17 GM PACKET. PO SCH (09:00)
[2019-11-02] MEDS ORDERED: KETOROLAC 15 MG/ML VIAL. IVP PRN (09:00)
--- NOTE | 2019-11-02 09:43 | PDOC ---
Infectious Disease Note Vital Sign Vital Signs Vital Signs Date Time Temp Pulse Resp B/P (MAP) Pulse Ox O2 Delivery O2 Flow Rate FiO2 11/02/19 07:56 94 Nasal Cannula 2.0 11/02/19 07:56 17 11/02/19 07:00 98.0 102 130/63 (85) 98.0 Labs Lab Laboratory Tests Test 11/01/19 17:15 11/01/19 17:30 11/01/19 17:35 White Blood Count 15.0 x10^3/uL (4.0-11.0) Red Blood Count 3.70 x10^6/uL (3.50-5.40) Hemoglobin 10.4 g/dL (12.0-15.5) Hematocrit 30.8 % (36.0-47.0) Mean Corpuscular Volume 83 fL (79-100) Mean Corpuscular Hemoglobin 28 pg (25-35) Mean Corpuscular Hemoglobin Concent 34 g/dL (31-37) Red Cell Distribution Width 15.7 % (11.5-14.5) Platelet Count 398 x10^3/uL (140-400) Neutrophils (%) (Auto) 84 % (31-73) Lymphocytes (%) (Auto) 7 % (24-48) Monocytes (%) (Auto) 8 % (0-9) Eosinophils (%) (Auto) 0 % (0-3) Basophils (%) (Auto) 0 % (0-3) Neutrophils # (Auto) 12.6 x10^3/uL (1.8-7.7) Lymphocytes # (Auto) 1.0 x10^3/uL (1.0-4.8) Monocytes # (Auto) 1.2 x10^3/uL (0.0-1.1) Eosinophils # (Auto) 0.1 x10^3/uL (0.0-0.7) Basophils # (Auto) 0.1 x10^3/uL (0.0-0.2) Segmented Neutrophils % 73 % (35-66) Band Neutrophils % 17 % (0-9) Lymphocytes % 5 % (24-48) Monocytes % 4 % (0-10) Eosinophils % 1 % (0-5) Toxic Granulation Slight Platelet Estimate Adequate (ADEQUATE) Prothrombin Time 12.6 SEC (11.7-14.0) Prothromb Time International Ratio 1.0 (0.8-1.1) Sodium Level 133 mmol/L (136-145) Potassium Level 4.1 mmol/L (3.5-5.1) Chloride Level 94 mmol/L (98-107) Carbon Dioxide Level 29 mmol/L (21-32) Anion Gap 10 (6-14) Blood Urea Nitrogen 6 mg/dL (7-20) Creatinine 0.8 mg/dL (0.6-1.0) Estimated GFR (Cockcroft-Gault) 72.9 BUN/Creatinine Ratio 8 (6-20) Glucose Level 127 mg/dL (70-99) Lactic Acid Level 1.5 mmol/L (0.4-2.0) Calcium Level 8.2 mg/dL (8.5-10.1) Total Bilirubin 0.2 mg/dL (0.2-1.0) Aspartate Amino Transf (AST/SGOT) 25 U/L (15-37) Alanine Aminotransferase (ALT/SGPT) 47 U/L (14-59) Alkaline Phosphatase 102 U/L (46-116) Troponin I Quantitative < 0.017 ng/mL (0.000-0.055) [id number]-Type Natriuretic Peptide 72 pg/mL (0-124) Total Protein 7.4 g/dL (6.4-8.2) Albumin 3.5 g/dL (3.4-5.0) Albumin/Globulin Ratio 0.9 (1.0-1.7) Influenza Type A Antigen Negative (NEGATIVE) Influenza Type B Antigen Negative (NEGATIVE) O2 Saturation 98 % (92-99) Arterial Blood pH 7.41 (7.35-7.45) Arterial Blood pH (Temp corrected) 7.37 Arterial Blood pCO2 at Patient Temp 42 mmHg (35-46) Arterial Blood pCO2 (Temp correct) 46 mmHg Arterial Blood pO2 at Patient Temp 119 mmHg (65-108) Arterial Blood pO2 (Temp corrected) 135 mmHg Arterial Blood HCO3 26 mmol/L (21-28) Arterial Blood Base Excess 1 mmol/L (-3-3) Oxyhemoglobin 96.1 % Methemoglobin 0.6 % (0.0-1.9) Carbon Monoxide, Quantitative 1.1 % (0.0-1.9) FiO2 2 lpm ms Urine Collection Type U cath Urine Color Yellow Urine Clarity Clear Urine pH 7.0 Urine Specific [place] 1.015 Urine Protein Negative mg/dL (NEG-TRACE) Urine Glucose (UA) Negative mg/dL (NEG) Urine Ketones (Stick) Negative mg/dL (NEG) Urine Blood Negative (NEG) Urine Nitrite Negative (NEG) Urine Bilirubin Negative (NEG) Urine Urobilinogen Dipstick 1.0 mg/dL (0.2 mg/dL) Urine Leukocyte Esterase Negative (NEG) Urine RBC Rare /HPF (0-2) Urine WBC 0 /HPF (0-4) Urine Squamous Epithelial Cells Few /LPF Urine Transitional Epithelial Cells Occ /LPF Urine Bacteria 0 /HPF (0-FEW) Objective Assessment pt seen, consult dictated Plan Plan of Care / ILIR BATES MD Nov 02, 2019 09:43
[2019-11-02] MEDS ORDERED: AZITHROMYCIN 500 MG in IV NORMAL SALINE 250ML 250 ML IV SCH (10:00)
[2019-11-02] MEDS ORDERED: cefTRIAXone IV Push 1 GM VIAL. IVP SCH ×2 (10:00→12:00)
[2019-11-02] MEDS: ALBUTEROL SULFATE 2.5 MG/3 ML NEBU. NEB SCH ×4 (10:00→20:00)
[2019-11-02] MEDS: LIDOCAINE (700MG/PATCH) PATCH. TP SCH (10:53)
[2019-11-02] MEDS: amLODIPine BESYLATE 5 MG TABLET PO SCH (10:54)
[2019-11-02] MEDS: traMADol 50 MG TABLET PO PRN ×2 (10:54→20:24)
[2019-11-02] MEDS: CLOPIDOGREL BISULFATE 75 MG TABLET PO SCH (10:54)
[2019-11-02] MEDS: CYCLOBENZAPRINE 10 MG TABLET. PO SCH ×3 (10:54→20:24)
[2019-11-02] MEDS: MEMANTINE 10 MG TABLET. PO SCH ×2 (10:54→20:23)
[2019-11-02] MEDS: DIVALPROEX EXTENDED RELEASE 500 MG TAB.ER.24H. PO SCH ×2 (10:55→20:23)
[2019-11-02] MEDS: hydrALAZINE 25 MG TABLET PO SCH ×3 (10:55→20:23)
[2019-11-02] MEDS: CETIRIZINE HCL 10 MG TABLET. PO SCH (10:55)
[2019-11-02] MEDS: ATORVASTATIN CALCIUM 40 MG TABLET. PO SCH (10:55)
[2019-11-02] MEDS: SERTRALINE 50 MG TABLET. PO SCH (10:55)
[2019-11-02] MEDS: FUROSEMIDE 20 MG TABLET PO SCH (10:56)
[2019-11-02] MEDS: methylPREDNISolone SOD SUCC PF 40 MG/ML VIAL. IV SCH ×3 (10:56→20:25)
[2019-11-02] MEDS: GABAPENTIN 300 MG CAPSULE. PO SCH ×3 (10:56→20:23)
[2019-11-02 11:00] VITALS: BP_SYST 118; BP_SYST 159; BP_DIAS 58; BP_DIAS 79
[2019-11-02] MEDS: BUDESONIDE 0.5 MG/2 ML NEBU. NEB SCH ×2 (11:39→19:12)
--- NOTE | 2019-11-02 11:54 | CONS ---
DATE OF CONSULTATION: 11/02/2019 PULMONARY CONSULTATION ATTENDING PHYSICIAN: Dr. Canada REASON FOR CONSULTATION: Pneumonia. HISTORY OF PRESENT ILLNESS: The patient is a 63-year-old who has been a smoker since age 17. She presented from [facility] with complaint of multiple falls. She also has a cough. She had a fever of 102.7. Saturation was 91% on room air. The patient's chest x-ray was reviewed, and it shows an infiltrate in the right middle and right lower lung ma consistent with pneumonia. No nausea or vomiting, no diarrhea, no dysuria, and no focal weakness. No rash. No leg edema. PAST MEDICAL HISTORY: History of COPD with ongoing tobaccoism, bipolar disorder, depression, dyslipidemia, heart disease, stroke, osteopenia, osteoporosis, and Alzheimer. PAST SURGICAL HISTORY: Appendectomy, oophorectomy, and others. ALLERGIES: ASPIRIN, CODEINE, AND HYDROCODONE. MEDICATIONS: Reviewed as listed in the MRAD including Solu-Medrol, azithromycin, vancomycin, and Zosyn that she received in the ER. REVIEW OF SYSTEMS: A 12-point system obtained. Pertinent positives discussed in my history of present illness, otherwise noncontributory. All systems that were negative were reviewed as well. SOCIAL HISTORY: Smoker since age 17 and still smokes. FAMILY HISTORY: Noncontributory to lungs. PHYSICAL EXAMINATION: VITAL SIGNS: She is currently afebrile. She had a T-max of 102.7. Blood pressure is stable. HEENT: Sclerae nonicteric. NECK: Supple. LUNGS: With diminished breath sounds. CARDIOVASCULAR: With a regular rate. ABDOMEN: Soft and obese. EXTREMITIES: With no pitting edema. LABORATORY DATA: Reviewed. Influenza screen negative. BUN and creatinine normal. ABGs were reviewed. White cell count 15.0. IMPRESSION: 1. Acute hypoxic respiratory failure secondary to right lung pneumonia and underlying chronic obstructive pulmonary disease. 2. Abnormal chest x-ray with infiltrate in the right upper lobe. Previous CT from 10/19/2019 did not reveal any infiltrates and this is a new finding and likely inflammatory. 3. Underlying chronic obstructive pulmonary disease with ongoing tobaccoism since age 17. 4. Alzheimer. 5. Bipolar disorder. RECOMMENDATIONS: 1. Continue with present oxygen p.r.n. to keep sats 92 and above. 2. Continue with bronchodilators. 3. Continue with Solu-Medrol with gradual taper. 4. Empiric antibiotic. 5. We will follow along with you. Hopefully, discharge in the next 24 hours. INGRID OVALLES MD DR: RUSSELL/marc JOB#: [id number] / [id number]
--- NOTE | 2019-11-02 12:43 | CONS ---
DATE OF CONSULTATION: 11/02/2019 REQUESTING PHYSICIAN: Dr. Canada REASON FOR CONSULTATION: Fever and pneumonia. HISTORY OF PRESENT ILLNESS: This is a 63-year-old female who is a penitentiary resident, who started having tremors and then started feeling shortness of breath and had some cough. The patient fell because of the tremors and/or trying to walk with a walker, as she has had multiple falls in the past also. The patient denies any nausea, vomiting, or diarrhea. Denies any chest pain, abdominal pain, urinary symptoms, headache, or visual symptoms. PAST MEDICAL HISTORY: Positive for COPD, coronary artery disease, hyperlipidemia, hypertension, CVA in the past, osteoporosis, dementia, and bipolar disorder. PAST SURGICAL HISTORY: Has had appendicectomy. SOCIAL HISTORY: Continues to smoke. Negative for alcohol use or drug use. ALLERGIES: LISTED ALLERGIC TO ASPIRIN, CODEINE, AND HYDROCODONE. CURRENT MEDICATIONS: Reviewed. The patient has been given azithromycin, Zosyn, vancomycin, and Rocephin. REVIEW OF SYSTEMS: As per HPI, all other systems reviewed are negative. PHYSICAL EXAMINATION: GENERAL: Alert and oriented female, not in any distress. VITAL SIGNS: Stable with T-max of 102.7. HEENT: Both pupils are round and reacting. No conjunctival lesion. No lesion in the mouth. Poor dental hygiene. NECK: Supple. No JVP. No lymphadenopathy. LUNGS: Clear. HEART: S1, S2 regular. ABDOMEN: Benign. EXTREMITIES: No edema or cyanosis. SKIN: Unremarkable. NEUROLOGIC: The patient is alert, awake, and appropriate. No focal neurologic deficit. LABORATORY DATA: White count is 15,000. BUN and creatinine is normal. Urinalysis is unremarkable. Influenza screen is negative. Chest x-ray showed right mid and lower lung infiltrate. IMPRESSION: 1. Healthcare facility associated pneumonia. 2. Fever. 3. Leukocytosis. 4. Chronic obstructive pulmonary disease. 5. Coronary artery disease. 6. Cerebrovascular accident. RECOMMENDATIONS: We will use vancomycin and Zosyn. Supportive care. Follow the cultures. Try to get the sputum and we will continue to follow. Thank you very much Dr. Canada for giving me the opportunity to participate in this patient's care. ILIR BATES MD DR: DANNY/marc JOB#: [id number] / [id number]
--- NOTE | 2019-11-02 14:55 | NUR ---
SS following for discharge planning. SS reviewed pt chart. Pt is from [facility], ; fax [phone]. SS contacted [facility] and verified that pt is a LTC resident from there facility and is able to return when medically stable for discharge. SS will continue to follow for discharge planning.
[2019-11-02 15:00] VITALS: BP 117/54
--- NOTE | 2019-11-02 16:16 | PDOC1 ---
History and Physical Date of Admission Date of Admission 11/02/2019 Identification/Chief Complaint Chief Complaint I had the sharachana and fell Source Source: Chart review, Patient History of Present Illness History of Present Illness Patient is a 63-year-old female with past medical history of COPD secondary to tobacco abuse, the patient has a greater than 46-[id number]-hjen history of smoking. Patient relates to me that yesterday she presented "tremoring". Throughout the day the patient felt cold and she also felt with generalized malaise prompting her to fall on 3 occasions. The patient continued to steadily get worse thr oughout the day and due to the progressive nature of her symptoms she decided to consult the emergency department. Patient denies any sick contacts no travels outside the area she denies worsening cough than usual no sputum production was reported no pleurisy reported either. Patient was found to have a pneumonic process in the emergency department evaluation reason why we were asked to admit the patient for further treatment, at the time of my visit the patient is able to respond to questions in full sentences. The patient denies having being intubated on mechanical ventilation in the past, no recent changes to her medications. She was formerly a 1 pack/year smoker that has improved to 6 cigarettes/day. The patient denies headache no blurred vision no dysphagia or odynophagia was reported no chest pain palpitations she does have shortness of breath at this time patient denies any nausea vomiting or diarrhea no lower extremity edema no dizziness or neurological deficits were reported either. Plan of care was explained in detail and all of her concerns were addressed to the best of my abilities. Her main concern is her generalized pain due to the falls that she suffered yesterday pain management will be addressed at this time Past Medical History Cardiovascular: CAD, HTN, Hyperlipidemia Pulmonary: COPD CENTRAL NERVOUS SYSTEM: CVA, Dementia GI: Constipation Psych: Bipolar, Depression Past Surgical History Past Surgical History: Appendectomy, Other Family History Family History: Hypertension Social History ALCOHOL: none Drugs: None Current Problem List Problem List Problems Medical Problems: (1) Pneumonia Status: Acute Current Medications Current Medications Current Medications Medications (Trade) Dose Ordered Sig/Maikel Start Time Stop Time Status Last Admin Dose Admin Acetaminophen (Tylenol) 650 mg PRN Q6HRS PRN 11/02/19 08:45 Albuterol Sulfate (Ventolin Neb Soln) 2.5 mg RTQID 11/02/19 10:00 Albuterol/ Ipratropium (Duoneb) 3 ml RTQID 11/01/19 20:00 11/02/19 19:59 11/02/19 11:39 3 ML Amlodipine Besylate (Norvasc) 5 mg DAILY 11/02/19 09:00 11/02/19 10:54 5 MG Atorvastatin Calcium (Lipitor) 40 mg DAILY 11/02/19 09:00 11/02/19 10:55 40 MG Azithromycin 500 mg/Sodium Chloride 250 ml @ 250 mls/hr Q24H 11/02/19 10:00 11/02/19 09:48 DC Budesonide (Pulmicort) 0.5 mg RTBID 11/02/19 10:00 11/02/19 11:39 0.5 MG Calcium Carbonate/ Glycine (Tums) 500 mg PRN Q2HRS PRN 11/02/19 08:45 Ceftriaxone Sodium (Rocephin) 1 gm Q24H 11/02/19 12:00 11/02/19 13:04 1 GM Cetirizine HCl (ZyrTEC) 10 mg DAILY 11/02/19 09:00 11/02/19 10:55 10 MG Clopidogrel Bisulfate (Plavix) 75 mg DAILY 11/02/19 09:00 11/02/19 10:54 75 MG Cyclobenzaprine HCl (Flexeril) 10 mg TID 11/02/19 09:00 11/02/19 10:54 10 MG Diclofenac Sodium (Voltaren) 1 nicole QID 11/02/19 09:00 11/02/19 13:03 1 NICOLE Divalproex Sodium (Depakote Er) 500 mg BID 11/02/19 09:00 11/02/19 10:55 500 MG Docusate Sodium (Colace) 100 mg Q12HR 11/02/19 09:00 Famotidine (Pepcid) 20 mg DAILY 11/02/19 09:00 11/02/19 10:56 20 MG Fentanyl Citrate (Fentanyl 2ml Vial) 50 mcg PRN Q1HR PRN 11/01/19 20:00 11/02/19 19:59 11/02/19 13:03 50 MCG Furosemide (Lasix) 20 mg DAILY 11/02/19 09:00 11/02/19 10:56 20 MG Gabapentin (Neurontin) 300 mg TID 11/02/19 09:00 11/02/19 10:56 300 MG Hydralazine HCl (Apresoline) 25 mg TID 11/02/19 09:00 11/02/19 10:55 25 MG Ibuprofen (Motrin) 400 mg PRN Q6HRS PRN 11/02/19 08:45 Ketorolac Tromethamine (Toradol 15mg Vial) 15 mg PRN Q6HRS PRN 11/02/19 09:00 11/07/19 08:59 Lidocaine (Lidoderm) 1 patch DAILY 11/02/19 09:00 UNV Memantine (Namenda) 10 mg BID 11/02/19 09:00 11/02/19 10:54 10 MG Methylprednisolone Sodium Succinate (SOLU-Medrol 40MG VIAL) 40 mg Q8HRS 11/02/19 09:00 11/02/19 10:56 40 MG Methylprednisolone Sodium Succinate (SOLU-Medrol 125MG VIAL) 125 mg 1X ONCE 11/01/19 17:15 11/01/19 17:16 DC 11/01/19 18:10 125 MG Miscellaneous (Lidoderm Patch Removal) 1 ea QHS 11/02/19 21:00 Non-Formulary Medication (Sertraline Hcl (Zoloft)) 1 tab DAILY 11/02/19 09:00 UNV Olanzapine (ZyPREXA) 20 mg QHS 11/02/19 21:00 Ondansetron HCl (Zofran) 4 mg PRN Q8HRS PRN 11/01/19 20:00 11/02/19 19:59 Piperacillin Sod/ Tazobactam Sod 3.375 gm/Sodium Chloride 50 ml @ 100 mls/hr 1X ONCE 11/01/19 18:30 11/01/19 18:59 DC 11/01/19 19:06 100 MLS/HR Polyethylene Glycol (miraLAX PACKET) 17 gm DAILY 11/02/19 09:00 Sennosides (Senna) 17.2 mg HS 11/02/19 21:00 Sertraline HCl (Zoloft) 50 mg DAILY 11/02/19 09:00 11/02/19 10:55 50 MG Sodium Chloride 1,000 ml @ 1,000 mls/hr 1X ONCE 11/01/19 17:30 11/01/19 18:29 DC 11/01/19 18:10 1,000 MLS/HR Tramadol HCl (Ultram) 50 mg PRN Q6HRS PRN 11/02/19 08:45 11/02/19 10:54 50 MG Trazodone HCl (Desyrel) 200 mg QHS 11/02/19 21:00 Vancomycin HCl 250 ml @ 250 mls/hr 1X ONCE 11/01/19 20:00 11/01/19 20:59 DC 11/01/19 22:09 250 MLS/HR Allergies Allergies Allergies Coded Allergies Type Severity Reaction Last Updated Verified aspirin Allergy Intermediate 10/19/19 Yes codeine Allergy Intermediate 10/19/19 Yes hydrocodone Allergy Intermediate 10/19/19 Yes ROS Review of System CONSTITUTIONAL: No fever or chills EYES: No recent changes SKIN: No rash or itching CARDIOVASCULAR: No chest pain, syncope, palpitations, or edema RESPIRATORY: No SOB + cough GASTROINTESTINAL: No nausea, vomiting or abdominal pain NEUROLOGICAL: No headaches + weakness ENDOCRINE: No cold or heat intolerance GENITOURINARY: No urgency or frequency of urination MUSCULOSKELETAL: No back pain or joint pain LYMPHATICS: No enlarged lymph nodes PSYCHIATRIC: No anxiety or depression Physical Exam Physical Exam Gen.: well-developed well-nourished in no apparent distress Head: Normal shape atraumatic Eyes: Pupils equal reactive to light and accommodation, normal conjunctivae and lids Ears: Normal shape Nose: Normal shape no trauma Mouth: No exudates of the back of throat no thrush no lesions Neck: Supple no JVD no carotid bruit or lymphadenopathy no thyromegaly Chest: Lungs wheezing upper lung ma with good inspiration effort no crackles rales or rhonchi Cardiovascular: S1-S2 regular rhythm no murmurs gallops or rubs Abdomen: Bowel sounds present soft nontender no hepatosplenomegaly appreciated sign Extremities: No clubbing no cyanosis no edema peripheral pulses palpated bilaterally Neurological: Alert awake oriented in person time place and situation, cranial nerves II through XII intact, no motor or sensory deficits appreciated Psych: Appropriate mood, cooperative Vitals Vitals Vital Signs Date Time Temp Pulse Resp B/P (MAP) Pulse Ox O2 Delivery O2 Flow Rate FiO2 11/02/19 13:35 16 Room Air 11/02/19 11:39 94 2.0 11/02/19 11:00 97.8 96 118/58 (78) 97.8 Labs Labs Laboratory Tests Test 11/01/19 17:15 11/01/19 17:30 11/01/19 17:35 White Blood Count 15.0 x10^3/uL (4.0-11.0) Red Blood Count 3.70 x10^6/uL (3.50-5.40) Hemoglobin 10.4 g/dL (12.0-15.5) Hematocrit 30.8 % (36.0-47.0) Mean Corpuscular Volume 83 fL (79-100) Mean Corpuscular Hemoglobin 28 pg (25-35) Mean Corpuscular Hemoglobin Concent 34 g/dL (31-37) Red Cell Distribution Width 15.7 % (11.5-14.5) Platelet Count 398 x10^3/uL (140-400) Neutrophils (%) (Auto) 84 % (31-73) Lymphocytes (%) (Auto) 7 % (24-48) Monocytes (%) (Auto) 8 % (0-9) Eosinophils (%) (Auto) 0 % (0-3) Basophils (%) (Auto) 0 % (0-3) Neutrophils # (Auto) 12.6 x10^3/uL (1.8-7.7) Lymphocytes # (Auto) 1.0 x10^3/uL (1.0-4.8) Monocytes # (Auto) 1.2 x10^3/uL (0.0-1.1) Eosinophils # (Auto) 0.1 x10^3/uL (0.0-0.7) Basophils # (Auto) 0.1 x10^3/uL (0.0-0.2) Segmented Neutrophils % 73 % (35-66) Band Neutrophils % 17 % (0-9) Lymphocytes % 5 % (24-48) Monocytes % 4 % (0-10) Eosinophils % 1 % (0-5) Toxic Granulation Slight Platelet Estimate Adequate (ADEQUATE) Prothrombin Time 12.6 SEC (11.7-14.0) Prothromb Time International Ratio 1.0 (0.8-1.1) Sodium Level 133 mmol/L (136-145) Potassium Level 4.1 mmol/L (3.5-5.1) Chloride Level 94 mmol/L (98-107) Carbon Dioxide Level 29 mmol/L (21-32) Anion Gap 10 (6-14) Blood Urea Nitrogen 6 mg/dL (7-20) Creatinine 0.8 mg/dL (0.6-1.0) Estimated GFR (Cockcroft-Gault) 72.9 BUN/Creatinine Ratio 8 (6-20) Glucose Level 127 mg/dL (70-99) Lactic Acid Level 1.5 mmol/L (0.4-2.0) Calcium Level 8.2 mg/dL (8.5-10.1) Total Bilirubin 0.2 mg/dL (0.2-1.0) Aspartate Amino Transf (AST/SGOT) 25 U/L (15-37) Alanine Aminotransferase (ALT/SGPT) 47 U/L (14-59) Alkaline Phosphatase 102 U/L (46-116) Troponin I Quantitative < 0.017 ng/mL (0.000-0.055) BQ-Jeq-O-Type Natriuretic Peptide 72 pg/mL (0-124) Total Protein 7.4 g/dL (6.4-8.2) Albumin 3.5 g/dL (3.4-5.0) Albumin/Globulin Ratio 0.9 (1.0-1.7) Influenza Type A Antigen Negative (NEGATIVE) Influenza Type B Antigen Negative (NEGATIVE) O2 Saturation 98 % (92-99) Arterial Blood pH 7.41 (7.35-7.45) Arterial Blood pH (Temp corrected) 7.37 Arterial Blood pCO2 at Patient Temp 42 mmHg (35-46) Arterial Blood pCO2 (Temp correct) 46 mmHg Arterial Blood pO2 at Patient Temp 119 mmHg (65-108) Arterial Blood pO2 (Temp corrected) 135 mmHg Arterial Blood HCO3 26 mmol/L (21-28) Arterial Blood Base Excess 1 mmol/L (-3-3) Oxyhemoglobin 96.1 % Methemoglobin 0.6 % (0.0-1.9) Carbon Monoxide, Quantitative 1.1 % (0.0-1.9) FiO2 2 lpm oh Urine Collection Type U cath Urine Color Yellow Urine Clarity Clear Urine pH 7.0 Urine Specific [place] 1.015 Urine Protein Negative mg/dL (NEG-TRACE) Urine Glucose (UA) Negative mg/dL (NEG) Urine Ketones (Stick) Negative mg/dL (NEG) Urine Blood Negative (NEG) Urine Nitrite Negative (NEG) Urine Bilirubin Negative (NEG) Urine Urobilinogen Dipstick 1.0 mg/dL (0.2 mg/dL) Urine Leukocyte Esterase Negative (NEG) Urine RBC Rare /HPF (0-2) Urine WBC 0 /HPF (0-4) Urine Squamous Epithelial Cells Few /LPF Urine Transitional Epithelial Cells Occ /LPF Urine Bacteria 0 /HPF (0-FEW) Laboratory Tests Test 11/01/19 17:15 11/01/19 17:30 11/01/19 17:35 White Blood Count 15.0 x10^3/uL (4.0-11.0) Red Blood Count 3.70 x10^6/uL (3.50-5.40) Hemoglobin 10.4 g/dL (12.0-15.5) Hematocrit 30.8 % (36.0-47.0) Mean Corpuscular Volume 83 fL (79-100) Mean Corpuscular Hemoglobin 28 pg (25-35) Mean Corpuscular Hemoglobin Concent 34 g/dL (31-37) Red Cell Distribution Width 15.7 % (11.5-14.5) Platelet Count 398 x10^3/uL (140-400) Neutrophils (%) (Auto) 84 % (31-73) Lymphocytes (%) (Auto) 7 % (24-48) Monocytes (%) (Auto) 8 % (0-9) Eosinophils (%) (Auto) 0 % (0-3) Basophils (%) (Auto) 0 % (0-3) Neutrophils # (Auto) 12.6 x10^3/uL (1.8-7.7) Lymphocytes # (Auto) 1.0 x10^3/uL (1.0-4.8) Monocytes # (Auto) 1.2 x10^3/uL (0.0-1.1) Eosinophils # (Auto) 0.1 x10^3/uL (0.0-0.7) Basophils # (Auto) 0.1 x10^3/uL (0.0-0.2) Segmented Neutrophils % 73 % (35-66) Band Neutrophils % 17 % (0-9) Lymphocytes % 5 % (24-48) Monocytes % 4 % (0-10) Eosinophils % 1 % (0-5) Toxic Granulation Slight Platelet Estimate Adequate (ADEQUATE) Prothrombin Time 12.6 SEC (11.7-14.0) Prothromb Time International Ratio 1.0 (0.8-1.1) Sodium Level 133 mmol/L (136-145) Potassium Level 4.1 mmol/L (3.5-5.1) Chloride Level 94 mmol/L (98-107) Carbon Dioxide Level 29 mmol/L (21-32) Anion Gap 10 (6-14) Blood Urea Nitrogen 6 mg/dL (7-20) Creatinine 0.8 mg/dL (0.6-1.0) Estimated GFR (Cockcroft-Gault) 72.9 BUN/Creatinine Ratio 8 (6-20) Glucose Level 127 mg/dL (70-99) Lactic Acid Level 1.5 mmol/L (0.4-2.0) Calcium Level 8.2 mg/dL (8.5-10.1) Total Bilirubin 0.2 mg/dL (0.2-1.0) Aspartate Amino Transf (AST/SGOT) 25 U/L (15-37) Alanine Aminotransferase (ALT/SGPT) 47 U/L (14-59) Alkaline Phosphatase 102 U/L (46-116) Troponin I Quantitative < 0.017 ng/mL (0.000-0.055) JT-Akz-I-Type Natriuretic Peptide 72 pg/mL (0-124) Total Protein 7.4 g/dL (6.4-8.2) Albumin 3.5 g/dL (3.4-5.0) Albumin/Globulin Ratio 0.9 (1.0-1.7) Influenza Type A Antigen Negative (NEGATIVE) Influenza Type B Antigen Negative (NEGATIVE) O2 Saturation 98 % (92-99) Arterial Blood pH 7.41 (7.35-7.45) Arterial Blood pH (Temp corrected) 7.37 Arterial Blood pCO2 at Patient Temp 42 mmHg (35-46) Arterial Blood pCO2 (Temp correct) 46 mmHg Arterial Blood pO2 at Patient Temp 119 mmHg (65-108) Arterial Blood pO2 (Temp corrected) 135 mmHg Arterial Blood HCO3 26 mmol/L (21-28) Arterial Blood Base Excess 1 mmol/L (-3-3) Oxyhemoglobin 96.1 % Methemoglobin 0.6 % (0.0-1.9) Carbon Monoxide, Quantitative 1.1 % (0.0-1.9) FiO2 2 lpm nc Urine Collection Type U cath Urine Color Yellow Urine Clarity Clear Urine pH 7.0 Urine Specific [place] 1.015 Urine Protein Negative mg/dL (NEG-TRACE) Urine Glucose (UA) Negative mg/dL (NEG) Urine Ketones (Stick) Negative mg/dL (NEG) Urine Blood Negative (NEG) Urine Nitrite Negative (NEG) Urine Bilirubin Negative (NEG) Urine Urobilinogen Dipstick 1.0 mg/dL (0.2 mg/dL) Urine Leukocyte Esterase Negative (NEG) Urine RBC Rare /HPF (0-2) Urine WBC 0 /HPF (0-4) Urine Squamous Epithelial Cells Few /LPF Urine Transitional Epithelial Cells Occ /LPF Urine Bacteria 0 /HPF (0-FEW) Images Images [facility] [id number] [place] [address] IMAGING REPORT Signed PATIENT: SAIMA RUTH MACCOUNT: [id number] : 1955 LOCATION: ER AGE: 63 SEX: F EXAM STATUS: REG ER ORD. PHYSICIAN: DARIN PADILLA APRN REASON: FEVER PROCEDURE: PORTABLE CHEST 1V Exam: Chest one view INDICATION: Fever TECHNIQUE: Frontal view of the chest Comparisons: 08/31/2019 FINDINGS: The cardiomediastinal silhouette and pulmonary vessels are within normal limits. Patchy airspace disease is noted within the right mid and lower lung. No pleural effusion. IMPRESSION: Patchy airspace disease in the right mid and lower lung favored represent pneumonia. Follow-up imaging posttreatment to ensure resolution is recommended. VTE Prophylaxis Ordered VTE Prophylaxis Devices: No VTE Pharmacological Prophylaxi: Yes Assessment/Plan Assessment/Plan Healthcare facility associated pneumonia pneumonia: Patchy airspace disease in the right mid and lower lung acute hypoxic respiratory failure secondary to the underlying pneumonic process Chronic obstructive pulmonary disease with acute exacerbation secondary to pneumonic process Bipolar disorder History of coronary artery disease Plan Broad-spectrum antibiotics as per our ID regional sales consultant with vancomycin and Zosyn Respiratory support as per our regional sales consultant Resume home meds Monitor respiratory status Reassess in the a.m. Hopefully transition to oral in the next 24 to 48 hours once disease has had its defervescence Further recommendations based on the clinical course DVT prophylaxis with Lovenox KIM LEE MD Nov 02, 2019 16:16
[2019-11-02 19:51] VITALS: BP 121/53
[2019-11-02] MEDS: SENNOSIDES 8.6 MG TABLET PO SCH (20:23)
[2019-11-02] MEDS: traZODone 100 MG TABLET. PO SCH (20:24)
[2019-11-02] MEDS: OLANZapine 5 MG TABLET PO SCH (20:24)
[2019-11-02] MEDS: PATCH REMOVAL. MC SCH (20:30)
[2019-11-02 23:19] VITALS: BP 154/66
[2019-11-03] MEDS: traMADol 50 MG TABLET PO PRN ×3 (02:45→21:58)
[2019-11-03 03:45] VITALS: BP 132/60
[2019-11-03] MEDS: methylPREDNISolone SOD SUCC PF 40 MG/ML VIAL. IV SCH ×3 (06:43→21:51)
[2019-11-03] MEDS: IBUPROFEN 400 MG TABLET. PO PRN ×2 (06:43→23:51)
[2019-11-03 07:00] VITALS: BP 146/75
[2019-11-03] MEDS: BUDESONIDE 0.5 MG/2 ML NEBU. NEB SCH ×2 (07:24→20:51)
[2019-11-03] MEDS: ALBUTEROL SULFATE 2.5 MG/3 ML NEBU. NEB SCH ×4 (07:24→20:51)
[2019-11-03] MEDS ORDERED: predniSONE 10 MG TABLET PO ONE (07:30)
[2019-11-03 08:26] LABS: BASO % 0 % (0-3); EOS % 0 % (0-3); HEMATOCRIT 30.7 % (36.0-47.0); HEMOGLOBIN 9.9 g/dL (12.0-15.5); LYMPH # 1.6 x10^3/uL (1.0-4.8); LYMPH % 10 % (24-48); MEAN CORPUSCULAR HEMOGLOBIN 27 pg (25-35); MEAN CORPUSCULAR HGB CONC 32 g/dL (31-37); MEAN CORPUSCULAR VOLUME 84 fL (79-100); MONO # 1.1 x10^3/uL (0.0-1.1); MONO % 7 % (0-9); NEUT % 84 % (31-73); PLATELET COUNT 438 x10^3/uL (140-400); RED BLOOD COUNT 3.65 x10^6/uL (3.50-5.40); RED CELL DISTRIBUTION WIDTH 15.6 % (11.5-14.5); WHITE BLOOD COUNT 16.7 x10^3/uL (4.0-11.0)
[2019-11-03 08:42] LABS: CALCIUM 8.7 mg/dL (8.5-10.1); CREATININE 0.6 mg/dL (0.6-1.0); GFR 101.6; POTASSIUM 4.2 mmol/L (3.5-5.1)
--- NOTE | 2019-11-03 09:09 | PDOC ---
Infectious Disease Note Subjective Subjective pt is feeling ok, no new complaints ROS ROS no n/v/d/sob/fever Vital Sign Vital Signs Vital Signs Date Time Temp Pulse Resp B/P (MAP) Pulse Ox O2 Delivery O2 Flow Rate FiO2 11/03/19 07:24 92 Room Air 11/03/19 07:00 97.8 86 16 146/75 (98) 97.8 11/02/19 15:59 2.0 Physical Exam PHYSICAL EXAM GENERAL: Alert and oriented female, not in any distress. VITAL SIGNS: Stable HEENT: Both pupils are round and reacting. No conjunctival lesion. No lesion in the mouth. Poor dental hygiene. NECK: Supple. No JVP. No lymphadenopathy. LUNGS: Clear. HEART: S1, S2 regular. ABDOMEN: Benign. EXTREMITIES: No edema or cyanosis. SKIN: Unremarkable. NEUROLOGIC: The patient is alert, awake, and appropriate. No focal neurologic deficit. Labs Lab Laboratory Tests Test 11/03/19 07:55 White Blood Count 16.7 x10^3/uL (4.0-11.0) Red Blood Count 3.65 x10^6/uL (3.50-5.40) Hemoglobin 9.9 g/dL (12.0-15.5) Hematocrit 30.7 % (36.0-47.0) Mean Corpuscular Volume 84 fL (79-100) Mean Corpuscular Hemoglobin 27 pg (25-35) Mean Corpuscular Hemoglobin Concent 32 g/dL (31-37) Red Cell Distribution Width 15.6 % (11.5-14.5) Platelet Count 438 x10^3/uL (140-400) Neutrophils (%) (Auto) 84 % (31-73) Lymphocytes (%) (Auto) 10 % (24-48) Monocytes (%) (Auto) 7 % (0-9) Eosinophils (%) (Auto) 0 % (0-3) Basophils (%) (Auto) 0 % (0-3) Neutrophils # (Auto) 14.0 x10^3/uL (1.8-7.7) Lymphocytes # (Auto) 1.6 x10^3/uL (1.0-4.8) Monocytes # (Auto) 1.1 x10^3/uL (0.0-1.1) Eosinophils # (Auto) 0.0 x10^3/uL (0.0-0.7) Basophils # (Auto) 0.0 x10^3/uL (0.0-0.2) Sodium Level 140 mmol/L (136-145) Potassium Level 4.2 mmol/L (3.5-5.1) Chloride Level 101 mmol/L (98-107) Carbon Dioxide Level 30 mmol/L (21-32) Anion Gap 9 (6-14) Blood Urea Nitrogen 13 mg/dL (7-20) Creatinine 0.6 mg/dL (0.6-1.0) Estimated GFR (Cockcroft-Gault) 101.6 Glucose Level 92 mg/dL (70-99) Calcium Level 8.7 mg/dL (8.5-10.1) Micro Microbiology 11/01/19 Blood Culture - Preliminary, Resulted NO GROWTH AFTER 1 DAY Objective Assessment IMPRESSION: 1. Healthcare facility associated pneumonia. 2. Fever. 3. Leukocytosis. 4. Chronic obstructive pulmonary disease. 5. Coronary artery disease. 6. Cerebrovascular accident. Plan Plan of Care cont antibiotics cont supportive care pt/ot ILIR BATES MD Nov 03, 2019 09:09
[2019-11-03] MEDS: CLOPIDOGREL BISULFATE 75 MG TABLET PO SCH (09:11)
[2019-11-03] MEDS: FUROSEMIDE 20 MG TABLET PO SCH (09:11)
[2019-11-03] MEDS: GABAPENTIN 300 MG CAPSULE. PO SCH ×3 (09:12→21:53)
[2019-11-03] MEDS: hydrALAZINE 25 MG TABLET PO SCH ×3 (09:12→21:52)
[2019-11-03] MEDS: SERTRALINE 50 MG TABLET. PO SCH (09:12)
[2019-11-03] MEDS: amLODIPine BESYLATE 5 MG TABLET PO SCH (09:12)
[2019-11-03] MEDS: CETIRIZINE HCL 10 MG TABLET. PO SCH (09:12)
[2019-11-03] MEDS: DIVALPROEX EXTENDED RELEASE 500 MG TAB.ER.24H. PO SCH ×2 (09:12→21:52)
[2019-11-03] MEDS: DOCUSATE SODIUM 100 MG CAPSULE. PO SCH ×2 (09:12→21:53)
[2019-11-03] MEDS: ATORVASTATIN CALCIUM 40 MG TABLET. PO SCH (09:12)
[2019-11-03] MEDS: MEMANTINE 10 MG TABLET. PO SCH ×2 (09:12→21:53)
[2019-11-03] MEDS: KETOROLAC 15 MG/ML VIAL. IVP PRN ×2 (09:13→18:02)
[2019-11-03] MEDS: LIDOCAINE (700MG/PATCH) PATCH. TP SCH (09:13)
[2019-11-03] MEDS: POLYETHYLENE GLYCOL 3350 17 GM PACKET. PO SCH (09:13)
[2019-11-03] MEDS: DICLOFENAC SODIUM 1% TOPICAL GEL 100GM TUBE. TP SCH ×4 (09:14→21:53)
[2019-11-03] MEDS: CYCLOBENZAPRINE 10 MG TABLET. PO SCH ×3 (09:16→21:51)
[2019-11-03] MEDS ORDERED: VANCOMYCIN 2 GM in IV NORMAL SALINE 500ML BAG 500 ML IV ONE (10:00)
[2019-11-03] MEDS ORDERED: VANCOMYCIN PER PHARMACY MC PRN (10:00)
--- NOTE | 2019-11-03 10:18 | PDOC ---
PULMONARY PROGRESS NOTES Subjective feels better Vitals Vital Signs Date Time Temp Pulse Resp B/P (MAP) Pulse Ox O2 Delivery O2 Flow Rate FiO2 11/03/19 09:12 86 146/75 11/03/19 07:24 92 Room Air 11/03/19 07:00 97.8 16 97.8 11/02/19 15:59 2.0 General: Alert, No acute distress Lungs: Clear Cardiovascular: S1, S2 Abdomen: Soft Neuro Exam: Alert Extremities: No Edema Labs Laboratory Tests Test 11/01/19 17:15 11/01/19 17:30 11/01/19 17:35 11/03/19 07:55 White Blood Count 15.0 x10^3/uL (4.0-11.0) 16.7 x10^3/uL (4.0-11.0) Red Blood Count 3.70 x10^6/uL (3.50-5.40) 3.65 x10^6/uL (3.50-5.40) Hemoglobin 10.4 g/dL (12.0-15.5) 9.9 g/dL (12.0-15.5) Hematocrit 30.8 % (36.0-47.0) 30.7 % (36.0-47.0) Mean Corpuscular Volume 83 fL (79-100) 84 fL (79-100) Mean Corpuscular Hemoglobin 28 pg (25-35) 27 pg (25-35) Mean Corpuscular Hemoglobin Concent 34 g/dL (31-37) 32 g/dL (31-37) Red Cell Distribution Width 15.7 % (11.5-14.5) 15.6 % (11.5-14.5) Platelet Count 398 x10^3/uL (140-400) 438 x10^3/uL (140-400) Neutrophils (%) (Auto) 84 % (31-73) 84 % (31-73) Lymphocytes (%) (Auto) 7 % (24-48) 10 % (24-48) Monocytes (%) (Auto) 8 % (0-9) 7 % (0-9) Eosinophils (%) (Auto) 0 % (0-3) 0 % (0-3) Basophils (%) (Auto) 0 % (0-3) 0 % (0-3) Neutrophils # (Auto) 12.6 x10^3/uL (1.8-7.7) 14.0 x10^3/uL (1.8-7.7) Lymphocytes # (Auto) 1.0 x10^3/uL (1.0-4.8) 1.6 x10^3/uL (1.0-4.8) Monocytes # (Auto) 1.2 x10^3/uL (0.0-1.1) 1.1 x10^3/uL (0.0-1.1) Eosinophils # (Auto) 0.1 x10^3/uL (0.0-0.7) 0.0 x10^3/uL (0.0-0.7) Basophils # (Auto) 0.1 x10^3/uL (0.0-0.2) 0.0 x10^3/uL (0.0-0.2) Segmented Neutrophils % 73 % (35-66) Band Neutrophils % 17 % (0-9) Lymphocytes % 5 % (24-48) Monocytes % 4 % (0-10) Eosinophils % 1 % (0-5) Toxic Granulation Slight Platelet Estimate Adequate (ADEQUATE) Prothrombin Time 12.6 SEC (11.7-14.0) Prothromb Time International Ratio 1.0 (0.8-1.1) Sodium Level 133 mmol/L (136-145) 140 mmol/L (136-145) Potassium Level 4.1 mmol/L (3.5-5.1) 4.2 mmol/L (3.5-5.1) Chloride Level 94 mmol/L (98-107) 101 mmol/L (98-107) Carbon Dioxide Level 29 mmol/L (21-32) 30 mmol/L (21-32) Anion Gap 10 (6-14) 9 (6-14) Blood Urea Nitrogen 6 mg/dL (7-20) 13 mg/dL (7-20) Creatinine 0.8 mg/dL (0.6-1.0) 0.6 mg/dL (0.6-1.0) Estimated GFR (Cockcroft-Gault) 72.9 101.6 BUN/Creatinine Ratio 8 (6-20) Glucose Level 127 mg/dL (70-99) 92 mg/dL (70-99) Lactic Acid Level 1.5 mmol/L (0.4-2.0) Calcium Level 8.2 mg/dL (8.5-10.1) 8.7 mg/dL (8.5-10.1) Total Bilirubin 0.2 mg/dL (0.2-1.0) Aspartate Amino Transf (AST/SGOT) 25 U/L (15-37) Alanine Aminotransferase (ALT/SGPT) 47 U/L (14-59) Alkaline Phosphatase 102 U/L (46-116) Troponin I Quantitative < 0.017 ng/mL (0.000-0.055) LT-Zhw-P-Type Natriuretic Peptide 72 pg/mL (0-124) Total Protein 7.4 g/dL (6.4-8.2) Albumin 3.5 g/dL (3.4-5.0) Albumin/Globulin Ratio 0.9 (1.0-1.7) Influenza Type A Antigen Negative (NEGATIVE) Influenza Type B Antigen Negative (NEGATIVE) O2 Saturation 98 % (92-99) Arterial Blood pH 7.41 (7.35-7.45) Arterial Blood pH (Temp corrected) 7.37 Arterial Blood pCO2 at Patient Temp 42 mmHg (35-46) Arterial Blood pCO2 (Temp correct) 46 mmHg Arterial Blood pO2 at Patient Temp 119 mmHg (65-108) Arterial Blood pO2 (Temp corrected) 135 mmHg Arterial Blood HCO3 26 mmol/L (21-28) Arterial Blood Base Excess 1 mmol/L (-3-3) Oxyhemoglobin 96.1 % Methemoglobin 0.6 % (0.0-1.9) Carbon Monoxide, Quantitative 1.1 % (0.0-1.9) FiO2 2 lpm pa Urine Collection Type U cath Urine Color Yellow Urine Clarity Clear Urine pH 7.0 Urine Specific [place] 1.015 Urine Protein Negative mg/dL (NEG-TRACE) Urine Glucose (UA) Negative mg/dL (NEG) Urine Ketones (Stick) Negative mg/dL (NEG) Urine Blood Negative (NEG) Urine Nitrite Negative (NEG) Urine Bilirubin Negative (NEG) Urine Urobilinogen Dipstick 1.0 mg/dL (0.2 mg/dL) Urine Leukocyte Esterase Negative (NEG) Urine RBC Rare /HPF (0-2) Urine WBC 0 /HPF (0-4) Urine Squamous Epithelial Cells Few /LPF Urine Transitional Epithelial Cells Occ /LPF Urine Bacteria 0 /HPF (0-FEW) Laboratory Tests Test 11/03/19 07:55 White Blood Count 16.7 x10^3/uL (4.0-11.0) Red Blood Count 3.65 x10^6/uL (3.50-5.40) Hemoglobin 9.9 g/dL (12.0-15.5) Hematocrit 30.7 % (36.0-47.0) Mean Corpuscular Volume 84 fL (79-100) Mean Corpuscular Hemoglobin 27 pg (25-35) Mean Corpuscular Hemoglobin Concent 32 g/dL (31-37) Red Cell Distribution Width 15.6 % (11.5-14.5) Platelet Count 438 x10^3/uL (140-400) Neutrophils (%) (Auto) 84 % (31-73) Lymphocytes (%) (Auto) 10 % (24-48) Monocytes (%) (Auto) 7 % (0-9) Eosinophils (%) (Auto) 0 % (0-3) Basophils (%) (Auto) 0 % (0-3) Neutrophils # (Auto) 14.0 x10^3/uL (1.8-7.7) Lymphocytes # (Auto) 1.6 x10^3/uL (1.0-4.8) Monocytes # (Auto) 1.1 x10^3/uL (0.0-1.1) Eosinophils # (Auto) 0.0 x10^3/uL (0.0-0.7) Basophils # (Auto) 0.0 x10^3/uL (0.0-0.2) Sodium Level 140 mmol/L (136-145) Potassium Level 4.2 mmol/L (3.5-5.1) Chloride Level 101 mmol/L (98-107) Carbon Dioxide Level 30 mmol/L (21-32) Anion Gap 9 (6-14) Blood Urea Nitrogen 13 mg/dL (7-20) Creatinine 0.6 mg/dL (0.6-1.0) Estimated GFR (Cockcroft-Gault) 101.6 Glucose Level 92 mg/dL (70-99) Calcium Level 8.7 mg/dL (8.5-10.1) Medications Active Scripts Medications Dose Route/Sig Max Daily Dose Days Date Category Dose Instructions Lidocaine PATCH (Lidocaine) 1 Each Adh..patch 1 Each TP DAILY 11/02/19 Reported REMOVE AFTER 12 HOURS Voltaren (Diclofenac Sodium) 100 Gm Gel..gram. 4 Gm TP QID 30 11/02/19 Reported apply to affected area(s) Clopidogrel (Clopidogrel Bisulfate) 75 Mg Tablet 1 Tab PO DAILY 11/02/19 Reported Ibuprofen 400 Mg Tablet 400 Mg PO PRN Q6HRS PRN 11/02/19 Reported Gabapentin 600 Mg Tablet 300 Mg PO TID 11/02/19 Reported Famotidine 20 Mg Tablet 20 Mg PO DAILY 11/02/19 Reported Tramadol Hcl 50 Mg Tablet 50 Mg PO PRN Q6HRS PRN 6 09/02/19 Rx Cetirizine Hcl 10 Mg Tablet 10 Mg PO DAILY 30 10/16/18 Rx Hydralazine Hcl 25 Mg Tablet 25 Mg PO TID 30 10/16/18 Rx Amlodipine Besylate 5 Mg Tablet 5 Mg PO DAILY 30 10/16/18 Rx Senokot (Sennosides) 8.6 Mg Tablet 2 Tab PO HS 10/10/18 Reported Miralax (Polyethylene Glycol 3350) 17 Gm Powd.pack 1 Pkt PO DAILY 10/10/18 Reported Olanzapine 20 Mg Tablet 20 Mg PO HS 08/30/18 Reported Zoloft (Sertraline Hcl) 100 Mg Tablet 1 Tab PO DAILY 08/30/18 Reported Tylenol (Acetaminophen) 325 Mg Tablet 650 Mg PO PRN Q6HRS PRN 08/30/18 Reported Tums (Calcium Carbonate) 200 Mg Tab.chew 500 Mg PO PRN Q2HRS PRN 08/30/18 Reported Trazodone Hcl 100 Mg Tablet 2 Tab PO QHS 08/30/18 Reported Sertraline Hcl 50 Mg Tablet 50 Mg PO DAILY 08/30/18 Reported Namenda (Memantine Hcl) 10 Mg Tablet 10 Mg PO BID 08/30/18 Reported Lidocaine PATCH (Lidocaine) 1 Each Adh..patch 1 Each TP DAILY 08/30/18 Reported Furosemide 20 Mg Tablet 20 Mg PO DAILY 08/30/18 Reported Advair 100-50 Diskus (Fluticasone/Salmeterol) 1 Each Disk.w.dev 1 Puff IH BID 08/30/18 Reported Divalproex Sodium Er (Divalproex Sodium) 500 Mg Tab.er.24h 1 Tab PO BID 08/30/18 Reported Cyclobenzaprine Hcl 10 Mg Tablet 1 Tab PO TID 08/30/18 Reported Colace (Docusate Sodium) 100 Mg Capsule 100 Mg PO Q12HR 08/30/18 Reported Atorvastatin Calcium 40 Mg Tablet 40 Mg PO DAILY 08/30/18 Reported Proair Hfa Inhaler (Albuterol Sulfate) 8.5 Gm Hfa.aer.ad 2 Puff INH PRN Q4HRS PRN 08/30/18 Reported Impression . 1. Acute hypoxic respiratory failure secondary to right lung pneumonia and underlying chronic obstructive pulmonary disease. 2. Abnormal chest x-ray with infiltrate in the right upper lobe. Previous CT from 10/19/2019 did not reveal any infiltrates and this is a new finding and likely inflammatory. 3. Underlying chronic obstructive pulmonary disease with ongoing tobaccoism since age 17. 4. Alzheimer. 5. Bipolar disorder. Plan . 1. Continue with present oxygen p.r.n. to keep sats 92 and above. 2. Continue with bronchodilators. 3. Can change to po steroids 4. Empiric antibiotic. 5. ok with discharge today INGRID OVALLES MD Nov 03, 2019 10:18
[2019-11-03 11:00] VITALS: BP 150/64
--- NOTE | 2019-11-03 11:18 | PDOC ---
PROGRESS NOTES Chief Complaint Chief Complaint Healthcare facility associated pneumonia pneumonia: Patchy airspace disease in the right mid and lower lung acute hypoxic respiratory failure secondary to the underlying pneumonic process Healthcare facility associated pneumonia Chronic obstructive pulmonary disease with acute exacerbation secondary to pneumonic process Bipolar disorder History of coronary artery disease Musculoskeletal pain secondary to fall Plan Broad-spectrum antibiotics as per our ID senior information security consultant with vancomycin and Zosyn Respiratory support as per our senior information security consultant Resume home meds Start muscle relaxant and increased dose of Toradol for better relief. We will give a dose of prednisone as well for the inflammation Monitor respiratory status Reassess in the a.m. Hopefully transition to oral in the next 24 to 48 hours once disease has had its defervescence Further recommendations based on the clinical course DVT prophylaxis with Lovenox History of Present Illness History of Present Illness Patient with improved respiratory status. Just complaining about muscular pain due to her 3 falls suffered prior to admission. Reassurance provided plan of care has been explained in detail Vitals Vitals Vital Signs Date Time Temp Pulse Resp B/P (MAP) Pulse Ox O2 Delivery O2 Flow Rate FiO2 11/03/19 09:12 86 146/75 11/03/19 07:24 92 Room Air 11/03/19 07:00 97.8 16 97.8 11/02/19 15:59 2.0 Physical Exam Physical Exam GENERAL: Alert and oriented female, not in any distress. VITAL SIGNS: Stable HEENT: Both pupils are round and reacting. No conjunctival lesion. No lesion in the mouth. Poor dental hygiene. NECK: Supple. No JVP. No lymphadenopathy. LUNGS: Clear. HEART: S1, S2 regular. ABDOMEN: Benign. EXTREMITIES: No edema or cyanosis. SKIN: Unremarkable. NEUROLOGIC: The patient is alert, awake, and appropriate. No focal neurologic deficit. Lungs: Clear Labs LABS Laboratory Tests Test 11/03/19 07:55 White Blood Count 16.7 x10^3/uL (4.0-11.0) Red Blood Count 3.65 x10^6/uL (3.50-5.40) Hemoglobin 9.9 g/dL (12.0-15.5) Hematocrit 30.7 % (36.0-47.0) Mean Corpuscular Volume 84 fL (79-100) Mean Corpuscular Hemoglobin 27 pg (25-35) Mean Corpuscular Hemoglobin Concent 32 g/dL (31-37) Red Cell Distribution Width 15.6 % (11.5-14.5) Platelet Count 438 x10^3/uL (140-400) Neutrophils (%) (Auto) 84 % (31-73) Lymphocytes (%) (Auto) 10 % (24-48) Monocytes (%) (Auto) 7 % (0-9) Eosinophils (%) (Auto) 0 % (0-3) Basophils (%) (Auto) 0 % (0-3) Neutrophils # (Auto) 14.0 x10^3/uL (1.8-7.7) Lymphocytes # (Auto) 1.6 x10^3/uL (1.0-4.8) Monocytes # (Auto) 1.1 x10^3/uL (0.0-1.1) Eosinophils # (Auto) 0.0 x10^3/uL (0.0-0.7) Basophils # (Auto) 0.0 x10^3/uL (0.0-0.2) Sodium Level 140 mmol/L (136-145) Potassium Level 4.2 mmol/L (3.5-5.1) Chloride Level 101 mmol/L (98-107) Carbon Dioxide Level 30 mmol/L (21-32) Anion Gap 9 (6-14) Blood Urea Nitrogen 13 mg/dL (7-20) Creatinine 0.6 mg/dL (0.6-1.0) Estimated GFR (Cockcroft-Gault) 101.6 Glucose Level 92 mg/dL (70-99) Calcium Level 8.7 mg/dL (8.5-10.1) Review of Systems Review of Systems Review of systems pertinent as per HPI otherwise 14 point review of system is negative Assessment and Plan Assessmemt and Plan Problems Medical Problems: (1) Pneumonia Status: Acute Comment Review of Relevant I have reviewed the following items rajesh (where applicable) has been applied. Labs Laboratory Tests Test 11/01/19 17:15 11/01/19 17:30 11/01/19 17:35 11/03/19 07:55 White Blood Count 15.0 x10^3/uL (4.0-11.0) 16.7 x10^3/uL (4.0-11.0) Red Blood Count 3.70 x10^6/uL (3.50-5.40) 3.65 x10^6/uL (3.50-5.40) Hemoglobin 10.4 g/dL (12.0-15.5) 9.9 g/dL (12.0-15.5) Hematocrit 30.8 % (36.0-47.0) 30.7 % (36.0-47.0) Mean Corpuscular Volume 83 fL (79-100) 84 fL (79-100) Mean Corpuscular Hemoglobin 28 pg (25-35) 27 pg (25-35) Mean Corpuscular Hemoglobin Concent 34 g/dL (31-37) 32 g/dL (31-37) Red Cell Distribution Width 15.7 % (11.5-14.5) 15.6 % (11.5-14.5) Platelet Count 398 x10^3/uL (140-400) 438 x10^3/uL (140-400) Neutrophils (%) (Auto) 84 % (31-73) 84 % (31-73) Lymphocytes (%) (Auto) 7 % (24-48) 10 % (24-48) Monocytes (%) (Auto) 8 % (0-9) 7 % (0-9) Eosinophils (%) (Auto) 0 % (0-3) 0 % (0-3) Basophils (%) (Auto) 0 % (0-3) 0 % (0-3) Neutrophils # (Auto) 12.6 x10^3/uL (1.8-7.7) 14.0 x10^3/uL (1.8-7.7) Lymphocytes # (Auto) 1.0 x10^3/uL (1.0-4.8) 1.6 x10^3/uL (1.0-4.8) Monocytes # (Auto) 1.2 x10^3/uL (0.0-1.1) 1.1 x10^3/uL (0.0-1.1) Eosinophils # (Auto) 0.1 x10^3/uL (0.0-0.7) 0.0 x10^3/uL (0.0-0.7) Basophils # (Auto) 0.1 x10^3/uL (0.0-0.2) 0.0 x10^3/uL (0.0-0.2) Segmented Neutrophils % 73 % (35-66) Band Neutrophils % 17 % (0-9) Lymphocytes % 5 % (24-48) Monocytes % 4 % (0-10) Eosinophils % 1 % (0-5) Toxic Granulation Slight Platelet Estimate Adequate (ADEQUATE) Prothrombin Time 12.6 SEC (11.7-14.0) Prothromb Time International Ratio 1.0 (0.8-1.1) Sodium Level 133 mmol/L (136-145) 140 mmol/L (136-145) Potassium Level 4.1 mmol/L (3.5-5.1) 4.2 mmol/L (3.5-5.1) Chloride Level 94 mmol/L (98-107) 101 mmol/L (98-107) Carbon Dioxide Level 29 mmol/L (21-32) 30 mmol/L (21-32) Anion Gap 10 (6-14) 9 (6-14) Blood Urea Nitrogen 6 mg/dL (7-20) 13 mg/dL (7-20) Creatinine 0.8 mg/dL (0.6-1.0) 0.6 mg/dL (0.6-1.0) Estimated GFR (Cockcroft-Gault) 72.9 101.6 BUN/Creatinine Ratio 8 (6-20) Glucose Level 127 mg/dL (70-99) 92 mg/dL (70-99) Lactic Acid Level 1.5 mmol/L (0.4-2.0) Calcium Level 8.2 mg/dL (8.5-10.1) 8.7 mg/dL (8.5-10.1) Total Bilirubin 0.2 mg/dL (0.2-1.0) Aspartate Amino Transf (AST/SGOT) 25 U/L (15-37) Alanine Aminotransferase (ALT/SGPT) 47 U/L (14-59) Alkaline Phosphatase 102 U/L (46-116) Troponin I Quantitative < 0.017 ng/mL (0.000-0.055) QX-Gzw-S-Type Natriuretic Peptide 72 pg/mL (0-124) Total Protein 7.4 g/dL (6.4-8.2) Albumin 3.5 g/dL (3.4-5.0) Albumin/Globulin Ratio 0.9 (1.0-1.7) Influenza Type A Antigen Negative (NEGATIVE) Influenza Type B Antigen Negative (NEGATIVE) O2 Saturation 98 % (92-99) Arterial Blood pH 7.41 (7.35-7.45) Arterial Blood pH (Temp corrected) 7.37 Arterial Blood pCO2 at Patient Temp 42 mmHg (35-46) Arterial Blood pCO2 (Temp correct) 46 mmHg Arterial Blood pO2 at Patient Temp 119 mmHg (65-108) Arterial Blood pO2 (Temp corrected) 135 mmHg Arterial Blood HCO3 26 mmol/L (21-28) Arterial Blood Base Excess 1 mmol/L (-3-3) Oxyhemoglobin 96.1 % Methemoglobin 0.6 % (0.0-1.9) Carbon Monoxide, Quantitative 1.1 % (0.0-1.9) FiO2 2 lpm ma Urine Collection Type U cath Urine Color Yellow Urine Clarity Clear Urine pH 7.0 Urine Specific Kenney 1.015 Urine Protein Negative mg/dL (NEG-TRACE) Urine Glucose (UA) Negative mg/dL (NEG) Urine Ketones (Stick) Negative mg/dL (NEG) Urine Blood Negative (NEG) Urine Nitrite Negative (NEG) Urine Bilirubin Negative (NEG) Urine Urobilinogen Dipstick 1.0 mg/dL (0.2 mg/dL) Urine Leukocyte Esterase Negative (NEG) Urine RBC Rare /HPF (0-2) Urine WBC 0 /HPF (0-4) Urine Squamous Epithelial Cells Few /LPF Urine Transitional Epithelial Cells Occ /LPF Urine Bacteria 0 /HPF (0-FEW) Laboratory Tests Test 11/03/19 07:55 White Blood Count 16.7 x10^3/uL (4.0-11.0) Red Blood Count 3.65 x10^6/uL (3.50-5.40) Hemoglobin 9.9 g/dL (12.0-15.5) Hematocrit 30.7 % (36.0-47.0) Mean Corpuscular Volume 84 fL (79-100) Mean Corpuscular Hemoglobin 27 pg (25-35) Mean Corpuscular Hemoglobin Concent 32 g/dL (31-37) Red Cell Distribution Width 15.6 % (11.5-14.5) Platelet Count 438 x10^3/uL (140-400) Neutrophils (%) (Auto) 84 % (31-73) Lymphocytes (%) (Auto) 10 % (24-48) Monocytes (%) (Auto) 7 % (0-9) Eosinophils (%) (Auto) 0 % (0-3) Basophils (%) (Auto) 0 % (0-3) Neutrophils # (Auto) 14.0 x10^3/uL (1.8-7.7) Lymphocytes # (Auto) 1.6 x10^3/uL (1.0-4.8) Monocytes # (Auto) 1.1 x10^3/uL (0.0-1.1) Eosinophils # (Auto) 0.0 x10^3/uL (0.0-0.7) Basophils # (Auto) 0.0 x10^3/uL (0.0-0.2) Sodium Level 140 mmol/L (136-145) Potassium Level 4.2 mmol/L (3.5-5.1) Chloride Level 101 mmol/L (98-107) Carbon Dioxide Level 30 mmol/L (21-32) Anion Gap 9 (6-14) Blood Urea Nitrogen 13 mg/dL (7-20) Creatinine 0.6 mg/dL (0.6-1.0) Estimated GFR (Cockcroft-Gault) 101.6 Glucose Level 92 mg/dL (70-99) Calcium Level 8.7 mg/dL (8.5-10.1) Microbiology 11/01/19 Blood Culture - Preliminary, Resulted NO GROWTH AFTER 1 DAY Medications Current Medications Acetaminophen (Tylenol) 650 mg 1X ONCE PO Last administered on 11/01/19at 17:13; Start 11/01/19 at 17:00; Stop 11/01/19 at 17:03; Status DC Albuterol/ Ipratropium (Duoneb) 3 ml 1X ONCE NEB Last administered on 11/01/19at 18:07; Start 11/01/19 at 17:15; Stop 11/01/19 at 17:16; Status DC Methylprednisolone Sodium Succinate (SOLU-Medrol 125MG VIAL) 125 mg 1X ONCE IV Last administered on 11/01/19at 18:10; Start 11/01/19 at 17:15; Stop 11/01/19 at 17:16; Status DC Sodium Chloride 1,000 ml @ 1,000 mls/hr 1X ONCE IV Last administered on 11/01/19at 18:10; Start 11/01/19 at 17:30; Stop 11/01/19 at 18:29; Status DC Piperacillin Sod/ Tazobactam Sod 3.375 gm/Sodium Chloride 50 ml @ 100 mls/hr 1X ONCE IV Last administered on 11/01/19at 19:06; Start 11/01/19 at 18:30; Stop 11/01/19 at 18:59; Status DC Vancomycin HCl 250 ml @ 250 mls/hr 1X ONCE IV Last administered on 11/01/19at 22:09; Start 11/01/19 at 20:00; Stop 11/01/19 at 20:59; Status DC Ondansetron HCl (Zofran) 4 mg PRN Q8HRS PRN IV NAUSEA/VOMITING; Start 11/01/19 at 20:00; Stop 11/02/19 at 19:59; Status DC Fentanyl Citrate (Fentanyl 2ml Vial) 50 mcg PRN Q1HR PRN IV PAIN Last administered on 11/02/19at 18:26; Start 11/01/19 at 20:00; Stop 11/02/19 at 19:59; Status DC Acetaminophen (Tylenol) 650 mg PRN Q4HRS PRN PO FEVER; Start 11/01/19 at 20:00; Stop 11/02/19 at 09:08; Status DC Albuterol/ Ipratropium (Duoneb) 3 ml RTQID NEB Last administered on 11/02/19at 15:58; Start 11/01/19 at 20:00; Stop 11/02/19 at 19:59; Status DC Ceftriaxone Sodium (Rocephin) 1 gm Q24H IVP ; Start 11/02/19 at 10:00; Stop 11/02/19 at 09:48; Status DC Azithromycin 500 mg/Sodium Chloride 250 ml @ 250 mls/hr Q24H IV ; Start 11/02/19 at 10:00; Stop 11/02/19 at 09:48; Status DC Acetaminophen (Tylenol) 650 mg PRN Q6HRS PRN PO MILD PAIN 1-3; Start 11/02/19 at 08:45 Albuterol Sulfate (Ventolin Neb Soln) 2.5 mg PRN Q4HRS PRN NEB SHORTNESS OF BREATH; Start 11/02/19 at 08:45 Amlodipine Besylate (Norvasc) 5 mg DAILY PO Last administered on 11/03/19 09:12; Start 11/02/19 at 09:00 Atorvastatin Calcium (Lipitor) 40 mg DAILY PO Last administered on 11/03/19 09:12; Start 11/02/19 at 09:00 Calcium Carbonate/ Glycine (Tums) 500 mg PRN Q2HRS PRN PO upset stomach; Start 11/02/19 at 08:45 Cetirizine HCl (ZyrTEC) 10 mg DAILY PO Last administered on 11/03/19 09:12; Start 11/02/19 at 09:00 Clopidogrel Bisulfate (Plavix) 75 mg DAILY PO Last administered on 11/03/19 09:11; Start 11/02/19 at 09:00 Cyclobenzaprine HCl (Flexeril) 10 mg TID PO Last administered on 11/03/19 09:16; Start 11/02/19 at 09:00 Diclofenac Sodium (Voltaren) 1 nicole QID TP Last administered on 11/03/19 09:14; Start 11/02/19 at 09:00 Divalproex Sodium (Depakote Er) 500 mg BID PO Last administered on 11/03/19 09:12; Start 11/02/19 at 09:00 Docusate Sodium (Colace) 100 mg Q12HR PO Last administered on 11/03/19 09:12; Start 11/02/19 at 09:00 Famotidine (Pepcid) 20 mg DAILY PO Last administered on 11/02/19 10:56; Start 11/02/19 at 09:00; Stop 11/03/19 at 08:20; Status DC Furosemide (Lasix) 20 mg DAILY PO Last administered on 11/03/19 09:11; Start 11/02/19 at 09:00 Hydralazine HCl (Apresoline) 25 mg TID PO Last administered on 11/03/19 09:12; Start 11/02/19 at 09:00 Ibuprofen (Motrin) 400 mg PRN Q6HRS PRN PO INFLAMMATION Last administered on 11/03/19 06:43; Start 11/02/19 at 08:45 Lidocaine (Lidoderm) 1 patch DAILY TP Last administered on 11/03/19 09:13; Start 11/02/19 at 09:00 Lidocaine (Lidoderm) 1 patch DAILY TP ; Start 11/02/19 at 09:00; Status UNV Memantine (Namenda) 10 mg BID PO Last administered on 11/03/19 09:12; Start 11/02/19 at 09:00 Polyethylene Glycol (miraLAX PACKET) 17 gm DAILY PO Last administered on 11/03/19 09:13; Start 11/02/19 at 09:00 Sennosides (Senna) 17.2 mg HS PO Last administered on 11/02/19 20:23; Start 11/02/19 at 21:00 Sertraline HCl (Zoloft) 50 mg DAILY PO Last administered on 11/03/19 09:12; Start 11/02/19 at 09:00 Tramadol HCl (Ultram) 50 mg PRN Q6HRS PRN PO MODERATE PAIN Last administered on 11/03/19 02:45; Start 11/02/19 at 08:45 Trazodone HCl (Desyrel) 200 mg QHS PO Last administered on 11/02/19 20:24; Start 11/02/19 at 21:00 Budesonide (Pulmicort) 0.5 mg RTBID NEB Last administered on 11/03/19 07:24; Start 11/02/19 at 10:00 Gabapentin (Neurontin) 300 mg TID PO Last administered on 11/03/19 09:12; Start 11/02/19 at 09:00 Olanzapine (ZyPREXA) 20 mg QHS PO Last administered on 11/02/19 20:24; Start 11/02/19 at 21:00 Non-Formulary Medication (Sertraline Hcl (Zoloft)) 1 tab DAILY PO ; Start 11/02/19 at 09:00; Status UNV Methylprednisolone Sodium Succinate (SOLU-Medrol 40MG VIAL) 40 mg Q8HRS IV Last administered on 11/03/19at 06:43; Start 11/02/19 at 09:00 Ketorolac Tromethamine (Toradol 15mg Vial) 15 mg PRN Q6HRS PRN IVP INFLAMMATION/PAIN; Start 11/02/19 at 09:00; Stop 11/03/19 at 07:35; Status DC Miscellaneous (Lidoderm Patch Removal) 1 ea QHS MC ; Start 11/02/19 at 21:00 Albuterol Sulfate (Ventolin Neb Soln) 2.5 mg RTQID NEB Last administered on 11/03/19at 07:24; Start 11/02/19 at 10:00 Ceftriaxone Sodium (Rocephin) 1 gm Q24H IVP Last administered on 11/02/19at 13:04; Start 11/02/19 at 12:00; Stop 11/03/19 at 09:11; Status DC Ketorolac Tromethamine (Toradol 15mg Vial) 30 mg PRN Q8HRS PRN IVP INFLAMMATION/PAIN Last administered on 11/03/19at 09:13; Start 11/03/19 at 07:30; Stop 11/07/19 at 08:59 Tizanidine HCl (Zanaflex) 4 mg PRN Q8HRS PRN PO MUSCLE SPASMS; Start 11/03/19 at 07:30 Prednisone (Prednisone) 50 mg 1X ONCE PO Last administered on 11/03/19at 09:11; Start 11/03/19 at 07:30; Stop 11/03/19 at 07:43; Status DC Piperacillin Sod/ Tazobactam Sod 3.375 gm/Sodium Chloride 50 ml @ 100 mls/hr Q6HRS IV ; Start 11/03/19 at 12:00 Vancomycin HCl (Vanco Per Pharmacy) 1 each PRN DAILY PRN MC SEE COMMENTS; Start 11/03/19 at 10:00 Vancomycin HCl 2 gm/Sodium Chloride 500 ml @ 250 mls/hr 1X ONCE IV Last administered on 11/03/19at 10:41; Start 11/03/19 at 10:00; Stop 11/03/19 at 11:59 Active Scripts Active Tramadol Hcl 50 Mg Tablet 50 Mg PO PRN Q6HRS PRN 6 Days Cetirizine Hcl 10 Mg Tablet 10 Mg PO DAILY 30 Days Hydralazine Hcl 25 Mg Tablet 25 Mg PO TID 30 Days Amlodipine Besylate 5 Mg Tablet 5 Mg PO DAILY 30 Days Reported Lidocaine PATCH (Lidocaine) 1 Each Adh..patch 1 Each TP DAILY REMOVE AFTER 12 HOURS Voltaren (Diclofenac Sodium) 100 Gm Gel..gram. 4 Gm TP QID 30 Days apply to affected area(s) Clopidogrel (Clopidogrel Bisulfate) 75 Mg Tablet 1 Tab PO DAILY Ibuprofen 400 Mg Tablet 400 Mg PO PRN Q6HRS PRN Gabapentin 600 Mg Tablet 300 Mg PO TID Famotidine 20 Mg Tablet 20 Mg PO DAILY Senokot (Sennosides) 8.6 Mg Tablet 2 Tab PO HS Miralax (Polyethylene Glycol 3350) 17 Gm Powd.pack 1 Pkt PO DAILY Olanzapine 20 Mg Tablet 20 Mg PO HS Zoloft (Sertraline Hcl) 100 Mg Tablet 1 Tab PO DAILY Tylenol (Acetaminophen) 325 Mg Tablet 650 Mg PO PRN Q6HRS PRN Tums (Calcium Carbonate) 200 Mg Tab.chew 500 Mg PO PRN Q2HRS PRN Trazodone Hcl 100 Mg Tablet 2 Tab PO QHS Sertraline Hcl 50 Mg Tablet 50 Mg PO DAILY Namenda (Memantine Hcl) 10 Mg Tablet 10 Mg PO BID Lidocaine PATCH (Lidocaine) 1 Each Adh..patch 1 Each TP DAILY Furosemide 20 Mg Tablet 20 Mg PO DAILY Advair 100-50 Diskus (Fluticasone/Salmeterol) 1 Each Disk.w.dev 1 Puff IH BID Divalproex Sodium Er (Divalproex Sodium) 500 Mg Tab.er.24h 1 Tab PO BID Cyclobenzaprine Hcl 10 Mg Tablet 1 Tab PO TID Colace (Docusate Sodium) 100 Mg Capsule 100 Mg PO Q12HR Atorvastatin Calcium 40 Mg Tablet 40 Mg PO DAILY Proair Hfa Inhaler (Albuterol Sulfate) 8.5 Gm Hfa.aer.ad 2 Puff INH PRN Q4HRS PRN Vitals/I & O Vital Sign - Last 24 Hours 11/02/19 11/02/19 11/02/19 11/02/19 11:39 11:54 13:03 13:35 Resp 16 16 16 Pulse Ox 94 O2 Delivery Nasal Cannula Room Air Room Air Room Air O2 Flow Rate 2.0 11/02/19 11/02/19 11/02/19 11/02/19 15:00 15:59 16:04 18:26 Temp 97.7 97.7 Pulse 94 96 Resp 16 16 B/P (MAP) 117/54 (75) 118/58 Pulse Ox 92 94 O2 Delivery Room Air Nasal Cannula Room Air O2 Flow Rate 2.0 3/9/20 3/9/20 3/9/20 3/9/20 19:13 19:51 20:00 20:23 Temp 98.4 98.4 Pulse 101 101 Resp 20 B/P (MAP) 121/53 (75) 121/53 Pulse Ox 93 91 O2 Delivery Room Air Room Air Room Air 11/02/19 11/02/19 11/02/19 11/03/19 20:24 21:24 23:19 02:45 Temp 97.8 97.8 Pulse 102 Resp 16 16 20 16 B/P (MAP) 154/66 (95) Pulse Ox 91 92 92 O2 Delivery Room Air Room Air Room Air Room Air 11/03/19 11/03/19 11/03/19 11/03/19 03:45 03:45 07:00 07:24 Temp 97.9 97.8 97.9 97.8 Pulse 93 86 Resp 16 16 16 B/P (MAP) 132/60 (84) 146/75 (98) Pulse Ox 92 92 92 92 O2 Delivery Room Air Room Air Room Air Room Air 11/03/19 11/03/19 09:12 09:12 Pulse 86 86 B/P (MAP) 146/75 146/75 Intake and Output 11/02/19 11/02/19 11/03/19 15:00 23:00 07:00 Output Total 550 ml Balance -550 ml KIM LEE MD Nov 03, 2019 11:18
--- NOTE | 2019-11-03 12:15 | NUR ---
Pharmacy Vancomycin Dosing Note S:Consulted to monitor and dose vancomycin started 11/03/19. O:DAR SAIMA GONZALEZ is a 63 year old F with HCAP. Height: 5 feet, 0 inches Weight: 108.3 kg Sophia Body Weight: 45.50 Adjusted Body Weight: 70.62 Dosing Weight: Actual Other Antibiotics: ZOSYN LABS: Last BUN: 13 Last Creatinine: 0.6 Creatinine Clearance: 109 mL/min Last WBC: 16.7 Last Procalcitonin: -- Tmax (past 24 hours): 97.9 Microbiology: 10/31: BLOOD CX: NGTD I/O: 1050/ 700 (2 VOIDS) Drug Levels: Last dose given 11/03/19 at 1041 Vancomycin Dosing: Loading Dose: 2000 mg x1 Dosing Weight: Actual Target Trough: 15-20 A: Based on: patient's weight, renal function and trough goal. P: 1. Begin Vancomycin 1500 mg IV q12h 2. Follow up Trough level on 11/04/19 at 2230 3. Pharmacy will continue to monitor, follow and adjust therapy as needed. RUTHY BAÑUELOS RPH, 11/03/19 [id number]
[2019-11-03 15:00] VITALS: BP 173/82
[2019-11-03] MEDS: PIPERACILLIN/TAZOBACTAM 3.375 GM in IV NORMAL SALINE 50ML 50 ML IV SCH ×3 (15:20→23:52)
[2019-11-03] MEDS: tiZANidine 4 MG TABLET. PO PRN (18:02)
[2019-11-03 19:36] VITALS: BP 149/72
[2019-11-03] MEDS: LACTOBACILLUS RHAMNOSUS GG 1 CAPSULE. PO SCH (21:51)
[2019-11-03] MEDS: OLANZapine 5 MG TABLET PO SCH (21:51)
[2019-11-03] MEDS: traZODone 100 MG TABLET. PO SCH (21:52)
[2019-11-03] MEDS: PATCH REMOVAL. MC SCH (21:55)
[2019-11-03] MEDS: SENNOSIDES 8.6 MG TABLET PO SCH (21:55)
[2019-11-03 23:33] VITALS: BP 144/60
[2019-11-03] MEDS: VANCOMYCIN 1.5 GM in IV NORMAL SALINE 500ML BAG 500 ML IV SCH (23:52)
[2019-11-04] MEDS: tiZANidine 4 MG TABLET. PO PRN ×2 (02:09→10:03)
[2019-11-04] MEDS: KETOROLAC 15 MG/ML VIAL. IVP PRN ×2 (02:09→10:04)
[2019-11-04 02:14] VITALS: BP 153/75
[2019-11-04 06:05] LABS: CREATININE 0.7 mg/dL (0.6-1.0); GFR 85.1
[2019-11-04] MEDS: methylPREDNISolone SOD SUCC PF 40 MG/ML VIAL. IV SCH (06:11)
[2019-11-04] MEDS: PIPERACILLIN/TAZOBACTAM 3.375 GM in IV NORMAL SALINE 50ML 50 ML IV SCH (06:11)
[2019-11-04] MEDS: traMADol 50 MG TABLET PO PRN ×2 (06:12→14:37)
[2019-11-04 07:00] VITALS: BP 161/85
[2019-11-04] MEDS: BUDESONIDE 0.5 MG/2 ML NEBU. NEB SCH (08:00)
[2019-11-04] MEDS: ALBUTEROL SULFATE 2.5 MG/3 ML NEBU. NEB SCH ×3 (08:01→15:57)
[2019-11-04] MEDS: DICLOFENAC SODIUM 1% TOPICAL GEL 100GM TUBE. TP SCH ×3 (09:00→16:27)
[2019-11-04] MEDS: CYCLOBENZAPRINE 10 MG TABLET. PO SCH ×2 (09:19→14:36)
[2019-11-04] MEDS: CLOPIDOGREL BISULFATE 75 MG TABLET PO SCH (09:20)
[2019-11-04] MEDS: DIVALPROEX EXTENDED RELEASE 500 MG TAB.ER.24H. PO SCH (09:20)
[2019-11-04] MEDS: DOCUSATE SODIUM 100 MG CAPSULE. PO SCH (09:20)
[2019-11-04] MEDS: MEMANTINE 10 MG TABLET. PO SCH (09:20)
[2019-11-04] MEDS: CETIRIZINE HCL 10 MG TABLET. PO SCH (09:20)
[2019-11-04] MEDS: hydrALAZINE 25 MG TABLET PO SCH ×2 (09:20→14:37)
[2019-11-04] MEDS: SERTRALINE 50 MG TABLET. PO SCH (09:20)
[2019-11-04] MEDS: ATORVASTATIN CALCIUM 40 MG TABLET. PO SCH (09:20)
[2019-11-04] MEDS: amLODIPine BESYLATE 5 MG TABLET PO SCH (09:20)
[2019-11-04] MEDS: LACTOBACILLUS RHAMNOSUS GG 1 CAPSULE. PO SCH (09:20)
[2019-11-04] MEDS: GABAPENTIN 300 MG CAPSULE. PO SCH ×2 (09:20→14:36)
[2019-11-04] MEDS: LIDOCAINE (700MG/PATCH) PATCH. TP SCH (09:21)
[2019-11-04] MEDS: FUROSEMIDE 20 MG TABLET PO SCH (09:21)
[2019-11-04] MEDS: POLYETHYLENE GLYCOL 3350 17 GM PACKET. PO SCH (09:22)
[2019-11-04] MEDS: VANCOMYCIN 1.5 GM in IV NORMAL SALINE 500ML BAG 500 ML IV SCH (10:04)
--- NOTE | 2019-11-04 10:05 | PDOC ---
Infectious Disease Note Subjective Subjective pt is feeling ok, no new complaints ROS ROS no n/v/d/sob Vital Sign Vital Signs Vital Signs Date Time Temp Pulse Resp B/P (MAP) Pulse Ox O2 Delivery O2 Flow Rate FiO2 11/04/19 09:20 80 161/85 11/04/19 08:02 92 Room Air 11/04/19 07:00 97.5 18 97.5 11/03/19 08:20 2.0 Physical Exam PHYSICAL EXAM GENERAL: Alert and oriented female, not in any distress. VITAL SIGNS: Stable HEENT: Both pupils are round and reacting. No conjunctival lesion. No lesion in the mouth. Poor dental hygiene. NECK: Supple. No JVP. No lymphadenopathy. LUNGS: Clear. HEART: S1, S2 regular. ABDOMEN: Benign. EXTREMITIES: No edema or cyanosis. SKIN: Unremarkable. NEUROLOGIC: The patient is alert, awake, and appropriate. No focal neurologic deficit. Labs Lab Laboratory Tests Test 11/04/19 02:57 Creatinine 0.7 mg/dL (0.6-1.0) Estimated GFR (Cockcroft-Gault) 85.1 Micro Microbiology 11/01/19 Blood Culture - Preliminary, Resulted NO GROWTH AFTER 1 DAY Objective Assessment IMPRESSION: 1. Healthcare facility associated pneumonia. 2. Fever. 3. Leukocytosis. 4. Chronic obstructive pulmonary disease. 5. Coronary artery disease. 6. Cerebrovascular accident. Plan Plan of Care cont antibiotics,, change to po augmentin cont supportive care pt/ot ok to d/c ILIR BATES MD Nov 04, 2019 10:05
[2019-11-04 11:21] VITALS: BP 183/84
--- NOTE | 2019-11-04 12:43 | PDOC ---
PULMONARY PROGRESS NOTES Subjective feels better Vitals Vital Signs Date Time Temp Pulse Resp B/P (MAP) Pulse Ox O2 Delivery O2 Flow Rate FiO2 11/04/19 11:29 92 Room Air 11/04/19 11:21 97.9 94 18 183/84 (117) 97.9 11/04/19 08:00 2.0 General: Alert, No acute distress Lungs: Clear Cardiovascular: S1, S2 Abdomen: Soft Neuro Exam: Alert Extremities: No Edema Labs Laboratory Tests Test 11/03/19 07:55 11/04/19 02:57 White Blood Count 16.7 x10^3/uL (4.0-11.0) Red Blood Count 3.65 x10^6/uL (3.50-5.40) Hemoglobin 9.9 g/dL (12.0-15.5) Hematocrit 30.7 % (36.0-47.0) Mean Corpuscular Volume 84 fL (79-100) Mean Corpuscular Hemoglobin 27 pg (25-35) Mean Corpuscular Hemoglobin Concent 32 g/dL (31-37) Red Cell Distribution Width 15.6 % (11.5-14.5) Platelet Count 438 x10^3/uL (140-400) Neutrophils (%) (Auto) 84 % (31-73) Lymphocytes (%) (Auto) 10 % (24-48) Monocytes (%) (Auto) 7 % (0-9) Eosinophils (%) (Auto) 0 % (0-3) Basophils (%) (Auto) 0 % (0-3) Neutrophils # (Auto) 14.0 x10^3/uL (1.8-7.7) Lymphocytes # (Auto) 1.6 x10^3/uL (1.0-4.8) Monocytes # (Auto) 1.1 x10^3/uL (0.0-1.1) Eosinophils # (Auto) 0.0 x10^3/uL (0.0-0.7) Basophils # (Auto) 0.0 x10^3/uL (0.0-0.2) Sodium Level 140 mmol/L (136-145) Potassium Level 4.2 mmol/L (3.5-5.1) Chloride Level 101 mmol/L (98-107) Carbon Dioxide Level 30 mmol/L (21-32) Anion Gap 9 (6-14) Blood Urea Nitrogen 13 mg/dL (7-20) Creatinine 0.6 mg/dL (0.6-1.0) 0.7 mg/dL (0.6-1.0) Estimated GFR (Cockcroft-Gault) 101.6 85.1 Glucose Level 92 mg/dL (70-99) Calcium Level 8.7 mg/dL (8.5-10.1) Laboratory Tests Test 11/04/19 02:57 Creatinine 0.7 mg/dL (0.6-1.0) Estimated GFR (Cockcroft-Gault) 85.1 Medications Active Scripts Medications Dose Route/Sig Max Daily Dose Days Date Category Dose Instructions Lidocaine PATCH (Lidocaine) 1 Each Adh..patch 1 Each TP DAILY 11/02/19 Reported REMOVE AFTER 12 HOURS Voltaren (Diclofenac Sodium) 100 Gm Gel..gram. 4 Gm TP QID 30 11/02/19 Reported apply to affected area(s) Clopidogrel (Clopidogrel Bisulfate) 75 Mg Tablet 1 Tab PO DAILY 11/02/19 Reported Ibuprofen 400 Mg Tablet 400 Mg PO PRN Q6HRS PRN 11/02/19 Reported Gabapentin 600 Mg Tablet 300 Mg PO TID 11/02/19 Reported Famotidine 20 Mg Tablet 20 Mg PO DAILY 11/02/19 Reported Tramadol Hcl 50 Mg Tablet 50 Mg PO PRN Q6HRS PRN 6 09/02/19 Rx Cetirizine Hcl 10 Mg Tablet 10 Mg PO DAILY 30 10/16/18 Rx Hydralazine Hcl 25 Mg Tablet 25 Mg PO TID 30 10/16/18 Rx Amlodipine Besylate 5 Mg Tablet 5 Mg PO DAILY 30 10/16/18 Rx Senokot (Sennosides) 8.6 Mg Tablet 2 Tab PO HS 10/10/18 Reported Miralax (Polyethylene Glycol 3350) 17 Gm Powd.pack 1 Pkt PO DAILY 10/10/18 Reported Olanzapine 20 Mg Tablet 20 Mg PO HS 08/30/18 Reported Zoloft (Sertraline Hcl) 100 Mg Tablet 1 Tab PO DAILY 08/30/18 Reported Tylenol (Acetaminophen) 325 Mg Tablet 650 Mg PO PRN Q6HRS PRN 08/30/18 Reported Tums (Calcium Carbonate) 200 Mg Tab.chew 500 Mg PO PRN Q2HRS PRN 08/30/18 Reported Trazodone Hcl 100 Mg Tablet 2 Tab PO QHS 08/30/18 Reported Sertraline Hcl 50 Mg Tablet 50 Mg PO DAILY 08/30/18 Reported Namenda (Memantine Hcl) 10 Mg Tablet 10 Mg PO BID 08/30/18 Reported Lidocaine PATCH (Lidocaine) 1 Each Adh..patch 1 Each TP DAILY 08/30/18 Reported Furosemide 20 Mg Tablet 20 Mg PO DAILY 08/30/18 Reported Advair 100-50 Diskus (Fluticasone/Salmeterol) 1 Each Disk.w.dev 1 Puff IH BID 08/30/18 Reported Divalproex Sodium Er (Divalproex Sodium) 500 Mg Tab.er.24h 1 Tab PO BID 08/30/18 Reported Cyclobenzaprine Hcl 10 Mg Tablet 1 Tab PO TID 08/30/18 Reported Colace (Docusate Sodium) 100 Mg Capsule 100 Mg PO Q12HR 08/30/18 Reported Atorvastatin Calcium 40 Mg Tablet 40 Mg PO DAILY 08/30/18 Reported Proair Hfa Inhaler (Albuterol Sulfate) 8.5 Gm Hfa.aer.ad 2 Puff INH PRN Q4HRS PRN 08/30/18 Reported Impression . 1. Acute hypoxic respiratory failure secondary to right lung pneumonia and underlying chronic obstructive pulmonary disease. 2. Abnormal chest x-ray with infiltrate in the right upper lobe. Previous CT from 10/19/2019 did not reveal any infiltrates and this is a new finding and likely inflammatory. 3. Underlying chronic obstructive pulmonary disease with ongoing tobaccoism since age 17. 4. Alzheimer. 5. Bipolar disorder. Plan . 1. Continue with present oxygen p.r.n. to keep sats 92 and above. 2. Continue with bronchodilators. 3. po steroids 4. Empiric antibiotic. 5. ok with discharge today INGRID OVALLES MD Nov 04, 2019 12:43
[2019-11-04] MEDS ORDERED: MELO7.5T5 PO (13:49)
[2019-11-04] MEDS ORDERED: TIZA4TAB2 PO (13:49)
[2019-11-04] MEDS ORDERED: LACT1CAP19 PO (13:49)
[2019-11-04] MEDS ORDERED: PRED-220 PO (13:49)
[2019-11-04] MEDS ORDERED: AMOX1TAB11 PO (13:49)
--- NOTE | 2019-11-04 14:10 | PDOC3 ---
Discharge Summary Visit Information Date of Admission: Nov 02, 2019 Date of Discharge: Nov 04, 2019 Admitting Diagnosis Comment: Pneumonia Final Diagnosis Healthcare facility associated pneumonia pneumonia: Patchy airspace disease in the right mid and lower lung, possible gram-negative organism Acute hypoxic respiratory failure secondary to the underlying pneumonic process Healthcare facility associated pneumonia Chronic obstructive pulmonary disease with acute exacerbation secondary to pneumonic process Bipolar disorder History of coronary artery disease Musculoskeletal pain secondary to fall Brief Hospital Course Allergies Allergies Coded Allergies Type Severity Reaction Last Updated Verified aspirin Allergy Intermediate 10/19/19 Yes codeine Allergy Intermediate 10/19/19 Yes hydrocodone Allergy Intermediate 10/19/19 Yes Vital Signs Vital Signs Date Time Temp Pulse Resp B/P (MAP) Pulse Ox O2 Delivery O2 Flow Rate FiO2 11/04/19 11:29 92 Room Air 11/04/19 11:21 97.9 94 18 183/84 (117) 97.9 11/04/19 08:00 2.0 Lab Results Laboratory Tests Test 11/03/19 07:55 11/04/19 02:57 White Blood Count 16.7 x10^3/uL (4.0-11.0) Red Blood Count 3.65 x10^6/uL (3.50-5.40) Hemoglobin 9.9 g/dL (12.0-15.5) Hematocrit 30.7 % (36.0-47.0) Mean Corpuscular Volume 84 fL (79-100) Mean Corpuscular Hemoglobin 27 pg (25-35) Mean Corpuscular Hemoglobin Concent 32 g/dL (31-37) Red Cell Distribution Width 15.6 % (11.5-14.5) Platelet Count 438 x10^3/uL (140-400) Neutrophils (%) (Auto) 84 % (31-73) Lymphocytes (%) (Auto) 10 % (24-48) Monocytes (%) (Auto) 7 % (0-9) Eosinophils (%) (Auto) 0 % (0-3) Basophils (%) (Auto) 0 % (0-3) Neutrophils # (Auto) 14.0 x10^3/uL (1.8-7.7) Lymphocytes # (Auto) 1.6 x10^3/uL (1.0-4.8) Monocytes # (Auto) 1.1 x10^3/uL (0.0-1.1) Eosinophils # (Auto) 0.0 x10^3/uL (0.0-0.7) Basophils # (Auto) 0.0 x10^3/uL (0.0-0.2) Sodium Level 140 mmol/L (136-145) Potassium Level 4.2 mmol/L (3.5-5.1) Chloride Level 101 mmol/L (98-107) Carbon Dioxide Level 30 mmol/L (21-32) Anion Gap 9 (6-14) Blood Urea Nitrogen 13 mg/dL (7-20) Creatinine 0.6 mg/dL (0.6-1.0) 0.7 mg/dL (0.6-1.0) Estimated GFR (Cockcroft-Gault) 101.6 85.1 Glucose Level 92 mg/dL (70-99) Calcium Level 8.7 mg/dL (8.5-10.1) Laboratory Tests Test 11/04/19 02:57 Creatinine 0.7 mg/dL (0.6-1.0) Estimated GFR (Cockcroft-Gault) 85.1 Brief Hospital Course Ms. Stanford Boyer is a 63 old female with a past medical history of bipolar disorder who was admitted for healthcare associated pneumonia. Patient was seen in consultation by Dr. Beaver and Dr. Stahl from pulmonology. She was started on broad-spectrum antibiotics initially with vancomycin and Zosyn. Given that the patient had fallen on 3 occasions by her to her admission she had generalized body aches and pains. We started muscle relaxants and NSAIDs that seem to have improved her symptoms. She still has some discomfort but is significantly im proved compared to admission. Patient was deemed appropriate for dismissal since she has been hemodynamically stable and her respiratory status has definitely improved with the broad-spectrum antibiotics. Final recommendations from our ID distributor sales consultant was to continue outpatient therapy with Augmentin. All the concerns were addressed to the best of my abilities prior to dismissal and patient is in good spirits to be going home. Physical examination GENERAL: Alert and oriented female, not in any distress. VITAL SIGNS: Stable HEENT: Both pupils are round and reacting. No conjunctival lesion. No lesion in the mouth. Poor dental hygiene. NECK: Supple. No JVP. No lymphadenopathy. LUNGS: Clear. HEART: S1, S2 regular. ABDOMEN: Benign. EXTREMITIES: No edema or cyanosis. Discharge Information Condition at Discharge: Improved Follow Up: Weeks Disposition/Orders: D/C to Home Scheduled Amlodipine Besylate (Amlodipine Besylate) 5 Mg Tablet, 5 MG PO DAILY for HTN for 30 Days, #30 Ref 2 Prescribed by: ISAAC WOOD MD on 10/16/181115 Last Action: Continued on 11/02/19 0850 by KIM LEE MD Amoxicillin/Potassium Clav (Amox Tr-K Clv 875-125 Mg Tab) 1 Each Tablet, 1 TAB PO BID for HCAP` for 7 Days, #14 Prescribed by: KIM LEE MD on 11/04/19 1349 Atorvastatin Calcium (Atorvastatin Calcium) 40 Mg Tablet, 40 MG PO DAILY for FOR CHOLESTEROL, #30 Ref 0 (Reported) Entered as Reported by: PHILLY MCKENZIE on 08/30/182303 Last Action: Continued on 11/02/19 0850 by KIM LEE MD Cetirizine Hcl (Cetirizine Hcl) 10 Mg Tablet, 10 MG PO DAILY for allergies for 30 Days, #30 Ref 2 Prescribed by: ISAAC WOOD MD on 10/16/181115 Last Action: Continued on 11/02/1950 by KIM LEE MD Clopidogrel Bisulfate (Clopidogrel) 75 Mg Tablet, 1 TAB PO DAILY for anticoagulant, #90 Ref 1 (Reported) Entered as Reported by: Memo Hope on 11/02/19499 Last Action: Continued on 11/02/1950 by KIM LEE MD Cyclobenzaprine Hcl (Cyclobenzaprine Hcl) 10 Mg Tablet, 1 TAB PO TID for moderate pain, #90 (Reported) Entered as Reported by: PHILLY MCKENZIE on 08/30/182303 Last Action: Continued on 11/02/1950 by KIM LEE MD Diclofenac Sodium (Voltaren) 100 Gm Gel..gram., 4 GM TP QID for pain for 30 Days, #5 Ref 0 (Reported) apply to affected area(s) Entered as Reported by: Memo Hope on 11/02/19499 Last Action: Continued on 11/02/1950 by KIM LEE MD Divalproex Sodium (Divalproex Sodium Er) 500 Mg Tab.er.24h, 1 TAB PO BID for bipolar disorder, #60 (Reported) Entered as Reported by: PHILLY MCKENZIE on 08/30/182303 Last Action: Continued on 11/02/1950 by KIM LEE MD Docusate Sodium (Colace) 100 Mg Capsule, 100 MG PO Q12HR for constipation, (Reported) Entered as Reported by: PHILLY MCKENZIE on 08/30/182303 Last Action: Continued on 11/02/1950 by KIM LEE MD Famotidine (Famotidine) 20 Mg Tablet, 20 MG PO DAILY for heartburn, (Reported) Entered as Reported by: Memo Hope on 11/02/19499 Last Action: Continued on 11/02/1950 by KIM LEE MD Fluticasone/Salmeterol (Advair 100-50 Diskus) 1 Each Disk.w.dev, 1 PUFF IH BID for asthma, #1 Ref 5 (Reported) Entered as Reported by: PHILLY MCKENZIE on 08/30/182303 Last Action: Converted on 11/02/19 0851 by KIM LEE MD Furosemide (Furosemide) 20 Mg Tablet, 20 MG PO DAILY for edema, (Reported) Entered as Reported by: PHILLY MCKENZIE on 08/30/182303 Last Action: Continued on 11/02/1950 by KIM ELE MD Gabapentin (Gabapentin) 600 Mg Tablet, 300 MG PO TID for NEUROGENIC PAIN, (Reported) Entered as Reported by: Memo Hope on 11/02/19499 Last Action: Converted on 11/02/1951 by KIM LEE MD Hydralazine Hcl (Hydralazine Hcl) 25 Mg Tablet, 25 MG PO TID for HTN for 30 Days, #90 Ref 2 Prescribed by: ISAAC WOOD MD on 10/16/18 1116 Last Action: Continued on 11/02/19 0850 by KIM LEE MD Lactobacillus Rhamnosus Gg (Culturelle) 1 Each Cap.sprink, 1 CAP PO BID for probiotics for 30 Days, #60 Prescribed by: KIM LEE MD on 11/04/19 1349 Lidocaine (Lidocaine PATCH ) 1 Each Adh..patch, 1 EACH TP DAILY for lower back pain, chronic, (Reported) Entered as Reported by: PHILLY MCKENZIE on 08/30/182303 Last Action: Continued on 11/02/19850 by KIM LEE MD Lidocaine (Lidocaine PATCH ) 1 Each Adh..patch, 1 EACH TP DAILY for FOR LOCAL PAIN, (Reported) REMOVE AFTER 12 HOURS Entered as Reported by: Memo Hope on 11/02/19 0500 Last Action: Continued on 11/02/19 0850 by KIM LEE MD Meloxicam (Mobic) 7.5 Mg Tablet, 7.5 MG PO DAILY for Pain for 7 Days, #7 Prescribed by: KIM LEE MD on 11/04/19 1349 Memantine Hcl (Namenda) 10 Mg Tablet, 10 MG PO BID for alzhemier's disease, (Reported) Entered as Reported by: PHILLY MCKENZIE on 08/30/182303 Last Action: Continued on 11/02/19850 by KIM LEE MD Olanzapine (Olanzapine) 20 Mg Tablet, 20 MG PO HS for antipsychotic, (Reported) Entered as Reported by: PHILLY MCKENZIE on 08/30/182318 Last Action: Converted on 11/02/19850 by KIM LEE MD Polyethylene Glycol 3350 (Miralax) 17 Gm Powd.pack, 1 PKT PO DAILY for constipation, (Reported) Entered as Reported by: REYES DYKES on 10/10/182312 Last Action: Continued on 11/02/19850 by KIM LEE MD Prednisone (Prednisone ) 10 Mg Tablet, 30 MG PO DAILY for COPD for 4 Days, #12 Prescribed by: KIM LEE MD on 11/04/19 1349 Sennosides (Senokot) 8.6 Mg Tablet, 2 TAB PO HS for constipation, #40 (Reported) Entered as Reported by: REYES DYKES on 10/10/182312 Last Action: Continued on 11/02/19850 by KIM LEE MD Sertraline Hcl (Zoloft) 100 Mg Tablet, 1 TAB PO DAILY for depression, #30 Ref 5 (Reported) Entered as Reported by: PHILLY MCKENZIE on 08/30/182303 Last Action: Converted on 11/02/19850 by KIM LEE MD Trazodone Hcl (Trazodone Hcl) 100 Mg Tablet, 2 TAB PO QHS for insomnia, #30 Ref 1 (Reported) Entered as Reported by: PHILLY MCKENZIE on 08/30/182303 Last Action: Continued on 11/02/19850 by KIM LEE MD Scheduled PRN Acetaminophen (Tylenol) 325 Mg Tablet, 650 MG PO PRN Q6HRS PRN for PAIN, (Reported) Entered as Reported by: PHILLY MCKENZIE on 08/30/182303 Last Action: Continued on 11/02/19849 by KIM LEE MD Albuterol Sulfate (Proair Hfa Inhaler) 8.5 Gm Hfa.aer.ad, 2 PUFF INH PRN Q4HRS PRN for SHORTNESS OF BREATH, Ref 0 (Reported) Entered as Reported by: PHILLY MCKENZIE on 08/30/182303 Last Action: Continued on 11/02/19849 by KIM LEE MD Calcium Carbonate (Tums) 200 Mg Tab.chew, 500 MG PO PRN Q2HRS PRN for upset stomach, (Reported) Entered as Reported by: PHILLY MCKENZIE on 08/30/182303 Last Action: Continued on 11/02/19849 by KIM LEE MD Tizanidine Hcl (Tizanidine Hcl) 4 Mg Tablet, 4 MG PO PRN Q8HRS PRN for MUSCLE SPASMS for 7 Days, #21 Prescribed by: KIM LEE MD on 11/04/19 1349 Tramadol Hcl (Tramadol Hcl) 50 Mg Tablet, 50 MG PO PRN Q6HRS PRN for PAIN for 6 Days, #18 Prescribed by: ISAAC WOOD MD on 09/02/19 1633 Last Action: Continued on 11/02/1951 by KIM LEE MD Discontinued Medications Ibuprofen (Ibuprofen) 400 Mg Tablet, 400 MG PO PRN Q6HRS PRN for INFLAMMATION, (Reported) Entered as Reported by: Memo Hope on 11/02/19 0500 Last Action: Continued on 11/02/1950 by KIM LEE MD Sertraline Hcl (Sertraline Hcl) 50 Mg Tablet, 50 MG PO DAILY for ANTI- DEPRESSANT, Ref 0 (Reported) Entered as Reported by: PHILLY MCKENZIE on 08/30/182303 Last Action: Continued on 11/02/19 0851 by MD JESUS PALMER HECTOR M MD Nov 04, 2019 14:10
--- NOTE | 2019-11-04 14:18 | SNU/HH DC ---
DISCHARGE ORDERS DISCHARGE INFORMATION: DISCHARGE DATE: Nov 04, 2019 FINAL DIAGNOSIS Problems Medical Problems: (1) Healthcare facility associated pneumonia Status: Acute CONDITION ON DISCHARGE: Stable CODE STATUS: Code Status: Full DETENTION: SNF STAY <30 DAYS: Yes POST DISCHARGE ORDERS: ACTIVITY ORDERS: No restrictions WEIGHT BEARING STATUS: No restrictions DIET AFTER DISCHARGE: Regular CHECKS AFTER DISCHARGE: CHECKS AFTER DISCHARGE: Check blood press - daily, Check your Temp as needed TREATMENT/EQUIPMENT ORDERS: ADAPTIVE EQUIPMENT NEEDED: None RESPIRATORY EQUIPMENT NEEDED: Nebulizer DISCHARGE MEDICATIONS: Home Meds Active Scripts Meloxicam (MOBIC) 7.5 Mg Tablet, 7.5 MG PO DAILY for Pain for 7 Days, #7 TAB Prov:KIM LEE MD 11/04/19 Prednisone (PREDNISONE ) 10 Mg Tablet, 30 MG PO DAILY for COPD for 4 Days, #12 TAB Prov:KIM LEE MD 11/04/19 Lactobacillus Rhamnosus Gg (CULTURELLE) 1 Each Cap.sprink, 1 CAP PO BID for probiotics for 30 Days, #60 CAP Prov:KIM LEE MD 11/04/19 Tizanidine Hcl (TIZANIDINE HCL) 4 Mg Tablet, 4 MG PO PRN Q8HRS PRN for MUSCLE SPASMS for 7 Days, #21 TAB Prov:KIM LEE MD 11/04/19 Amoxicillin/Potassium Clav (AMOX TR-K CLV 875-125 MG TAB) 1 Each Tablet, 1 TAB PO BID for HCAP` for 7 Days, #14 TAB Prov:KIM LEE MD 11/04/19 Tramadol Hcl (TRAMADOL HCL) 50 Mg Tablet, 50 MG PO PRN Q6HRS PRN for PAIN for 6 Days, #18 TAB Prov:ISAAC WOOD MD 09/02/19 Cetirizine Hcl (CETIRIZINE HCL) 10 Mg Tablet, 10 MG PO DAILY for allergies for 30 Days, #30 TAB 2 Refills Prov:ISAAC WOOD MD 10/16/18 Hydralazine Hcl (HYDRALAZINE HCL) 25 Mg Tablet, 25 MG PO TID for HTN for 30 Days, #90 TAB 2 Refills Prov:ISAAC WOOD MD 10/16/18 Amlodipine Besylate (AMLODIPINE BESYLATE) 5 Mg Tablet, 5 MG PO DAILY for HTN for 30 Days, #30 TAB 2 Refills Prov:ISAAC WOOD MD 10/16/18 Reported Medications Lidocaine (Lidocaine PATCH ) 1 Each Adh..patch, 1 EACH TP DAILY for FOR LOCAL PAIN, PATCH REMOVE AFTER 12 HOURS 11/02/19 Diclofenac Sodium (VOLTAREN) 100 Gm Gel..gram., 4 GM TP QID for pain for 30 Days, #5 EACH 0 Refills apply to affected area(s) 11/02/19 Clopidogrel Bisulfate (CLOPIDOGREL) 75 Mg Tablet, 1 TAB PO DAILY for anticoagulant, #90 TAB 1 Refill 11/02/19 Gabapentin (GABAPENTIN) 600 Mg Tablet, 300 MG PO TID for NEUROGENIC PAIN, TAB 11/02/19 Famotidine (FAMOTIDINE) 20 Mg Tablet, 20 MG PO DAILY for heartburn, TAB 11/02/19 Sennosides (SENOKOT) 8.6 Mg Tablet, 2 TAB PO HS for constipation, #40 TAB 10/10/18 Polyethylene Glycol 3350 (MIRALAX) 17 Gm Powd.pack, 1 PKT PO DAILY for constipat ion, PKT 10/10/18 Olanzapine (OLANZAPINE) 20 Mg Tablet, 20 MG PO HS for antipsychotic, TAB 08/30/18 Sertraline Hcl (ZOLOFT) 100 Mg Tablet, 1 TAB PO DAILY for depression, #30 TAB 5 Refills 08/30/18 Acetaminophen (TYLENOL) 325 Mg Tablet, 650 MG PO PRN Q6HRS PRN for PAIN, TAB 08/30/18 Calcium Carbonate (TUMS) 200 Mg Tab.chew, 500 MG PO PRN Q2HRS PRN for upset stomach, TAB.CHEW 08/30/18 Trazodone Hcl (TRAZODONE HCL) 100 Mg Tablet, 2 TAB PO QHS for insomnia, #30 TAB 1 Refill 08/30/18 Memantine Hcl (NAMENDA) 10 Mg Tablet, 10 MG PO BID for alzhemier's disease, TAB 08/30/18 Lidocaine (Lidocaine PATCH ) 1 Each Adh..patch, 1 EACH TP DAILY for lower back pain, chronic, PATCH 08/30/18 Furosemide (FUROSEMIDE) 20 Mg Tablet, 20 MG PO DAILY for edema, TAB 08/30/18 Fluticasone/Salmeterol (ADVAIR 100-50 DISKUS) 1 Each Disk.w.dev, 1 PUFF IH BID for asthma, #1 INHALER 5 Refills 08/30/18 Divalproex Sodium (DIVALPROEX SODIUM ER) 500 Mg Tab.er.24h, 1 TAB PO BID for bipolar disorder, #60 TAB 08/30/18 Cyclobenzaprine Hcl (CYCLOBENZAPRINE HCL) 10 Mg Tablet, 1 TAB PO TID for moderate pain, #90 TAB 08/30/18 Docusate Sodium (COLACE) 100 Mg Capsule, 100 MG PO Q12HR for constipation, CAP 08/30/18 Atorvastatin Calcium (ATORVASTATIN CALCIUM) 40 Mg Tablet, 40 MG PO DAILY for FOR CHOLESTEROL, #30 TAB 0 Refills 08/30/18 Albuterol Sulfate (PROAIR HFA INHALER) 8.5 Gm Hfa.aer.ad, 2 PUFF INH PRN Q4HRS PRN for SHORTNESS OF BREATH, INHALER 0 Refills 08/30/18 Discontinued Reported Medications Ibuprofen (IBUPROFEN) 400 Mg Tablet, 400 MG PO PRN Q6HRS PRN for INFLAMMATION, TAB 11/02/19 Sertraline Hcl (SERTRALINE HCL) 50 Mg Tablet, 50 MG PO DAILY for ANTI- DEPRESSANT, TAB 0 Refills 08/30/18 KIM LEE MD Nov 04, 2019 14:18
--- NOTE | 2019-11-04 14:34 | NUR ---
NANNETTE following. Discussed with RN, pt ready to discharge back to [facility] today. NANNETTE faxed discharge paperwork and advised of discharge. Awaiting transportation time. NANNETTE will continue to follow. Addendum: 11/04/19 at 1459 by RAYSA BRUNSON Brittany notified NANNETTE CAVLIN will collect pt in 45 minutes ([id number]). RN notified. Addendum: 11/04/19 at 1601 by RAYSA BRUNSON [facility] arrived and requested physician statement be completed. NANNETTE spoke with [facility] hazardous materials tanker driver and advised this needs to be completed by the facility who arranged the transportation. NANNETTE confirmed with director, Piyush Molina. [facility] was turned away as they were stating had to be completed by the originating facility. NANNETTE advised pt does not require stretcher transportation so NANNETTE will not complete the physician statement for insurance purposes. NANNETTE contacted [facility] to have them arrange wheelchair transportation with [facility] who has a contract with them. SW awaiting transportation time. SHI notified. Addendum: 11/04/19 at 1617 by RAYSA BRUNSON HR Tonyacontestant coordinator at [facility] - she gave permission for SW to arrange transport with [facility] and have the bill sent to [facility]. SW arranged transportation with [facility] - pt will be collected between [phone]. RN notified.
[2019-11-04 15:19] VITALS: BP 163/70
--- NOTE | 2019-11-04 16:00 | NUR ---
pt stated she is missing her black, velvet with bows slip on shoes. This RN called the ED and they did not have it in the lost and found and when giving report, the nursing staff [facility] checked the patient's room and did not locate the shoes there but stated she did come to the hospital with them. Nursing veneer supervisor notified.
[2019-11-04] MEDS: IBUPROFEN 400 MG TABLET. PO PRN (16:26)
--- NOTE | 2019-11-04 17:45 | NUR ---
Discharge Note: SAIMA RUTH [address] Discharge instructions and discharge home medications reviewed with Loraine at [facility] and a copy given. All questions have been answered and understanding verbalized. The following instructions and handouts were given: f/u with PCP within one week. Discontinued lines and drains: Peripheral IV intact. Patient discharged to Home or Self Care with [facility] via Wheelchair
[2019-11-04] MEDS ORDERED: AMOXICILLIN/K CLAV 875/125MG TABLET. PO SCH (21:00)
[2019-11-05] MEDS ORDERED: predniSONE 10 MG TABLET PO SCH (09:00)
== END 2019-11-04 17:56 | disposition home or self-care (01) | DRG 871 ==
LOC: ER 16:34 → 6 SOUTH 19:27
PROVIDERS: ADMIT Family Medicine; ATTEND Family Medicine
DX: A41.9 Sepsis, unspecified organism (principal); J96.01 Acute respiratory failure with hypoxia; J15.6 Pneumonia due to other Gram-negative bacteria; J44.0 Chronic obstructive pulmonary disease with (acute) lower respiratory infection; J44.1 Chronic obstructive pulmonary disease with (acute) exacerbation; E78.00 Pure hypercholesterolemia, unspecified; E78.5 Hyperlipidemia, unspecified; F02.80 Dementia in other diseases classified elsewhere, unspecified severity, without behavioral disturbance, psychotic disturbance, mood disturbance, and anxiety; F17.200 Nicotine dependence, unspecified, uncomplicated; K21.9 Gastro-esophageal reflux disease without esophagitis; I11.9 Hypertensive heart disease without heart failure; M79.18 Myalgia, other site; F31.9 Bipolar disorder, unspecified; G30.9 Alzheimer's disease, unspecified; I25.10 Atherosclerotic heart disease of native coronary artery without angina pectoris; M81.0 Age-related osteoporosis without current pathological fracture; Z82.49 Family history of ischemic heart disease and other diseases of the circulatory system; Z86.73 Personal history of transient ischemic attack (TIA), and cerebral infarction without residual deficits; Z90.49 Acquired absence of other specified parts of digestive tract; Z88.6 Allergy status to analgesic agent; Z88.5 Allergy status to narcotic agent; Z88.8 Allergy status to other drugs, medicaments and biological substances
CPT/HCPCS: 36415; 36600; 70450; 71045; 72125; 80048; 80053; 81001; 82565; 82805; 83605; 83880; 84484; 85007; 85025; 85610; 87040; 87449; 87804; 93005; 94640; 94760; 96361; 96365; 96375; 99285; J0696; J1885; J2543; J2920; J2930; J3010; J3370; J7030; J7040; J7512; 97535; G0378; J7613; J7626

== ENCOUNTER → 2020-05-04 | Outpatient (CLI) | payer MEDICAID ==
[~2020-05-04] MED LIST changes: +AMOX1TAB11 PO; +DICL100G54 TP; +FAMO20TA5 PO; +GABA600T7 PO; +IBUP-1027 PO; +LACT1CAP19 PO; +MELO7.5T5 PO; +PRED-220 PO; +TIZA4TAB2 PO
--- NOTE | 2020-05-04 15:10 | KCIC ---
Noncontrast CT scan of the chest compared to similar exam dated October 192019 for lung nodule follow-up. TECHNIQUE: Contiguous axial images through the chest are obtained. Sagittal and coronal reformations are evaluated. IV contrast was not administered. FINDINGS: There is diffuse fatty infiltration of the liver. The entirety of the liver is not included on exam. Visualized portions of the upper abdominal organs are grossly unremarkable, though somewhat limited by lack of IV contrast. There is aortic atherosclerosis, with calcified atherosclerosis of the great vessels as well. No suspicious mediastinal, hilar, or axillary lymphadenopathy is identified. The previously seen trace right pleural effusion has resolved. Pleural parenchymal scarring in the right middle lobe is redemonstrated. Similar scarring is seen to a lesser degree in the posterior right lower lobe. No new or suspicious lung abnormalities are identified. Central airways are patent. IMPRESSION: 1. Mild chronic pleural parenchymal scarring involving the right middle lobe and posterior aspect the right lower lobe to a lesser extent. No new or suspicious lung abnormalities. 2. Hepatic steatosis. PQRS Compliance Statement: One or more of the following individualized dose reduction techniques were utilized for this examination: 1. Automated exposure control 2. Adjustment of the mA and/or kV according to patient size 3. Use of iterative reconstruction technique Electronically signed by: Leo Cheng MD (05/04/2020 3:07 PM) [id number]
== END | disposition home or self-care (01) ==
LOC: KCIC CT 12:53
PROVIDERS: ATTEND Internal Medicine Pulmonary Disease
DX: J98.4 Other disorders of lung (principal); R91.8 Other nonspecific abnormal finding of lung field; K76.0 Fatty (change of) liver, not elsewhere classified; I70.0 Atherosclerosis of aorta
CPT/HCPCS: 71250

== ENCOUNTER 2021-10-23 12:06 | Emergency (ER) | payer MEDICAID ==
[~2021-10-23] VITALS: Ht 152.4 cm; Wt 80.0 kg
[~2021-10-23 12:06] MED LIST changes: +AMLO-186 PO; -AMLO5TAB10 PO; +CYCL10TA19 PO; -CYCL10TA2 PO; +SERT-267 PO; -SERT50TA8 PO; +TIZA-75 PO; -TIZA4TAB2 PO
[2021-10-23] MEDS ORDERED: MORPHINE SULFATE 4 MG/ML INJ. IM ONE (12:30)
--- NOTE | 2021-10-23 13:45 | RAD ---
CT LUMBAR SPINE WO Date: 10/23/2021 1:24 PM Indication: Pain, fall Comparison: None. Technique: Helical CT images of the lumbar spine were obtained without contrast. Coronal and sagitta l reformatted images were also performed. One or more of the following dose reduction techniques were utilized: Automated exposure control (AEC), Adjustment of mA and/or kV according to patient size, Us e of iterative reconstruction technique such as ASiR, CT scan done according to ALARA and image gentl y/image wisely. Findings: Transitional lumbosacral anatomy with sacralization of L5 and left pseudoarthrosis. The lumbar spine is normally aligned. No acute fracture. Vertebral body heights are maintained without compression def ormity. The intervertebral disc spaces are normal. No aggressive lytic or blastic osseous lesion. No high grade spinal canal stenosis or neuroforaminal narrowing. No soft tissue abnormality within the visualized abdomen or pelvis. Atherosclerosis of the abdominal aorta. Aortic and left common iliac artery stents. IMPRESSION: No acute osseous abnormality of the lumbar spine. Electronically signed by: Venu Resendiz MD (10/23/2021 1:42 PM) [id number]
[2021-10-23] MEDS ORDERED: OXYC1TAB15 PO (14:35)
--- NOTE | 2021-10-23 14:35 | PHYS DOC ---
Past Medical History Past Medical History: Bipolar, COPD, Depression, High Cholesterol, Heart Disease, Stroke, Other Additional Past Medical Histor: Osteopenia,Osteoporosis,ALZHEIMER'S Past Surgical History: Other Additional Past Surgical Histo: R)ovary,adhesions around sm.intestine removed Smoking Status: Current Every Day Smoker Alcohol Use: Occasionally Drug Use: None Adult General Chief Complaint Chief Complaint: MECHANICAL FALL HPI HPI Patient is a 65 year old female presents with low back pain after falling. Patient states that she was trying to lean over and grabbed a bench that she thought was bolted to the ground, the bench tipped backwards and she fell landing on her lower back. She complains of pain in the midline rating down both legs. She has had back problems in the past. She denies any vinnie weakness or numbness. No bladder or bowel incontinence. No head injury, neck pain, chest discomfort, shortness of breath or other complaints. Review of Systems Review of Systems Constitutional: Denies fever Eyes: Denies change in visual acuity or eye pain HENT: Denies sore throat Respiratory: Denies shortness of breath Cardiovascular: Denies chest pain GI: Denies abd pain : Denies dysuria Musculoskeletal: Denies extremity injury Integument: Denies rash or skin lesions Neurologic: Denies headache, focal weakness or sensory changes All other systems were reviewed and found to be within normal limits, except as documented in this note. Current Medications Current Medications Current Medications Medications (Trade) Dose Ordered Sig/Maikel Start Time Stop Time Status Last Admin Dose Admin Morphine Sulfate (Morphine Sulfate) 4 mg 1X ONCE 10/23/21 12:30 10/23/21 12:33 DC 10/23/21 12:30 4 MG Allergies Allergies Allergies Coded Allergies Type Severity Reaction Last Updated Verified aspirin Allergy Intermediate 10/23/21 Yes codeine Allergy Intermediate 10/23/21 Yes hydrocodone Allergy Intermediate 10/23/21 Yes Physical Exam Physical Exam Constitutional: Well developed, well nourished, no acute distress, non-toxic appearance. HENT: Normocephalic, atraumatic, bilateral external ears normal, mucosa moist, nose normal. Eyes: EOMI, conjunctiva normal, no discharge. Neck: Normal range of motion, supple, no stridor, no meningeal signs. Cardiovascular: Regular rate and rhythm Lungs & Thorax: Bilateral breath sounds clear to auscultation Abdomen: Soft, no tenderness or obvious masses Skin: Warm, dry, no erythema, no rash. Extremities: No tenderness, no cyanosis, no clubbing, ROM intact, no edema. Back: Patient is tender in the midline over the entire lumbar spine Neurologic: Alert and oriented, normal motor function, normal sensory function, no focal deficits noted. Psychologic: Affect normal, judgement normal, mood normal. Current Patient Data Vital Signs Vital Signs Date Time Temp Pulse Resp B/P (MAP) Pulse Ox O2 Delivery O2 Flow Rate FiO2 10/23/21 12:30 Room Air 10/23/21 12:12 97.8 90 18 158/90 (112) 97 97.8 EKG EKG [] Radiology/Procedures Radiology/Procedures [] Impressions: PATIENT: SAIMA CARPENTER MACCOUNT: [id number]#: [id number] : 1955 LOCATION: ER AGE: 65 SEX: F EXAM STATUS: REG ER ORD. PHYSICIAN: MUNA CENTENO MD REASON: fall PROCEDURE: CT LUMBAR SPINE WO CONTRAST CT LUMBAR SPINE WO Date: 10/23/2021 1:24 PM Indication: Pain, fall Comparison: None. Technique: Helical CT images of the lumbar spine were obtained without contrast. Coronal and sagittal reformatted images were also performed. One or more of the following dose reduction techniques were utilized: Automated exposure control (AEC), Adjustment of mA and/or kV according to patient size, Use of iterative reconstruction technique such as ASiR, CT scan done according to ALARA and image gently/image wisely. Findings: Transitional lumbosacral anatomy with sacralization of L5 and left pseudoarthrosis. The lumbar spine is normally aligned. No acute fracture. Vertebral body heights are maintained without compression deformity. The intervertebral disc spaces are normal. No aggressive lytic or blastic osseous lesion. No high grade spinal canal stenosis or neuroforaminal narrowing. No soft tissue abnormality within the visualized abdomen or pelvis. Atherosclerosis of the abdominal aorta. Aortic and left common iliac artery stents. IMPRESSION: No acute osseous abnormality of the lumbar spine. Electronically signed by: Ester Resendiz MD (10/23/2021 1:42 PM) [id number] DICTATED and SIGNED BY: ESTER RESENDIZ MD DATE: 10/23/21 [id number] Course & Med Decision Making Course & Med Decision Making Pertinent Labs and Imaging studies reviewed. (See chart for details) [] There is a 65-year-old female back pain post fall. CT of the lumbar spine was negative for acute fracture, subluxation or dislocation. Patient was given dose of morphine in the ED. We will discharge her prescription for 12 8 Percocet tabs 1 tab every 6 hours as needed. She is already on [place] and this does not seem to be helping. Follow-up with her primary care physician if pain persists, return to the emerge department if symptoms become worse or other concerns arise, she is stable for discharge at this time. Dragon Disclaimer Dragon Disclaimer This electronic medical record was generated, in whole or in part, using a voice recognition dictation system. Departure Departure Impression: Primary Impression: Lumbar contusion Disposition: HOME / SELF CARE / HOMELESS Condition: STABLE Referrals: RICHARD MEJIA MD (PCP) Patient Instructions: Low Back Sprain with [facility], Low Back Strain with [facility] Scripts Oxycodone/Apap 5-325 (PERCOCET 5-325 MG TABLET ) 1 Each Tablet 1 EACH PO PRN TID PRN for PAIN, #8 TAB pain Prov: MUNA CENTENO MD 10/23/21 MUNA CENTENO MD Oct 23, 2021 14:35
[2021-10-23 14:48] VITALS: BP 154/75
== END 2021-10-23 16:11 | disposition home or self-care (01) ==
LOC: ER 12:06
DX: S30.0XXA Contusion of lower back and pelvis, initial encounter (principal); F31.9 Bipolar disorder, unspecified; J44.9 Chronic obstructive pulmonary disease, unspecified; E78.00 Pure hypercholesterolemia, unspecified; G30.9 Alzheimer's disease, unspecified; F02.80 Dementia in other diseases classified elsewhere, unspecified severity, without behavioral disturbance, psychotic disturbance, mood disturbance, and anxiety; F17.200 Nicotine dependence, unspecified, uncomplicated; Z86.73 Personal history of transient ischemic attack (TIA), and cerebral infarction without residual deficits; Z88.5 Allergy status to narcotic agent; Z88.6 Allergy status to analgesic agent; W18.39XA Other fall on same level, initial encounter; Y93.89 Activity, other specified; Y92.89 Other specified places as the place of occurrence of the external cause; Y99.8 Other external cause status
CPT/HCPCS: 72131; 96372; 99284; J2270

== ENCOUNTER 2021-10-28 18:12 | Emergency (ER) | payer MEDICAID ==
[~2021-10-28] VITALS: Ht 152.4 cm; Wt 75.0 kg
[~2021-10-28 18:12] MED LIST changes: +OXYC1TAB15 PO
--- NOTE | 2021-10-28 19:31 | RAD ---
Exam: CT head, maxillofacial and cervical spine INDICATION: Fall, head trauma TECHNIQUE: Sequential axial images through the head, maxillofacial and cervical spine were obtained w ithout the administration of IV contrast. Exposure: One or more of the following in the visualized dose reduction techniques were utilized for this examination: 1. Automated exposure control 2. Adjustment of the MA and/or KV according to patient size 3. Use of iterative of reconstructive technique Comparisons: None FINDINGS: Head: No focal parenchymal lesion or hemorrhage is identified. There is no midline shift or sulcal effaceme nt. No acute vascular territory infarction is identified. Simons-white distinction is preserved. The ventricular system is within normal limits without compression hydrocephalus. The basal cisterns are well maintained. Face: The visualized portions of the paranasal sinuses and mastoid air cells are well-pneumatized. No acute fractures. Globes and orbital contents are normal. Extensive periodontal disease is noted. Cervical spine: Reversal the normal cervical lordosis. Vertebral body heights are well-maintained. Fracture to the cervical spine is not identified. Mild bilateral facet arthropathy in cervical spine. Visualized paraspinal soft tissues are unremarkable. IMPRESSION: 1. No acute intracranial abnormality. 2. No acute traumatic injury at the face. 3. Negative CT C-spine for acute traumatic injury. Electronically signed by: Rosie Kamara MD (10/28/2021 7:29 PM) [facility]
--- NOTE | 2021-10-28 20:36 | RAD ---
Exam Date: 10/28/2021 8:12 PM XR HUMERUS_LT 2 VIEWS Indication: Reason: fall / Spl. Instructions: / History: . FINDINGS/ IMPRESSION: No acute fracture or dislocation. Alignment and joint spaces are maintained. The soft tissues are w ithin normal limits. Electronically signed by: Shahid Atkins MD (10/28/2021 8:33 PM) [id number]
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
[2021-10-28 21:43] VITALS: BP 142/63
== END 2021-10-28 22:37 | disposition home or self-care (01) ==
LOC: ER 18:12
DX: S00.03XA Contusion of scalp, initial encounter (principal); S40.022A Contusion of left upper arm, initial encounter; F31.9 Bipolar disorder, unspecified; J44.9 Chronic obstructive pulmonary disease, unspecified; E78.00 Pure hypercholesterolemia, unspecified; F17.200 Nicotine dependence, unspecified, uncomplicated; Z86.73 Personal history of transient ischemic attack (TIA), and cerebral infarction without residual deficits; Z88.6 Allergy status to analgesic agent; Z88.5 Allergy status to narcotic agent; W18.09XA Striking against other object with subsequent fall, initial encounter; Y93.01 Activity, walking, marching and hiking; Y92.89 Other specified places as the place of occurrence of the external cause; Y99.8 Other external cause status
CPT/HCPCS: 70450; 70486; 72125; 73060; 82962; 99285

== ENCOUNTER 2021-11-02 00:30 | Inpatient (IN) | payer MEDICAID ==
[~2021-11-02] VITALS: Ht 152.4 cm; Wt 72.5 kg
[2021-11-02 01:35] LABS: BILIRUBIN,URINE NEGATIVE (NEG); CLARITY,URINE CLEAR; COLOR,URINE YELLOW
[2021-11-02 01:35] LABS: BASO # 0.1 x10^3/uL (0.0-0.2); BASO % 1 % (0-3); EOS # 0.2 x10^3/uL (0.0-0.7); EOS % 2 % (0-3); HEMATOCRIT 29.7 % (36.0-47.0); LYMPH # 2.6 x10^3/uL (1.0-4.8); LYMPH % 24 % (24-48); MEAN CORPUSCULAR HEMOGLOBIN 28 pg (25-35); MEAN CORPUSCULAR HGB CONC 34 g/dL (31-37); MEAN CORPUSCULAR VOLUME 83 fL (79-100); MONO # 0.7 x10^3/uL (0.0-1.1); MONO % 6 % (0-9); NEUT # 7.3 x10^3/uL (1.8-7.7); NEUT % 67 % (31-73); PLATELET COUNT 520 x10^3/uL (140-400); RED BLOOD COUNT 3.59 x10^6/uL (3.50-5.40); RED CELL DISTRIBUTION WIDTH 15.3 % (11.5-14.5); WHITE BLOOD COUNT 10.8 x10^3/uL (4.0-11.0)
[2021-11-02 01:36] LABS: NITRITE,URINE NEGATIVE (NEG); PROTEIN,URINE NEGATIVE (NEG-TRACE); UROBILINOGEN,URINE 0.2 mg/dL (0.2 mg/dL)
[2021-11-02 01:38] LABS: BACTERIA,URINE FEW /HPF (0-FEW); RBC,URINE 0 /HPF (0-2)
[2021-11-02 01:43] LABS: CALCIUM 8.4 mg/dL (8.5-10.1); CREATININE 0.6 mg/dL (0.6-1.0); POTASSIUM 3.3 mmol/L (3.5-5.1)
[2021-11-02 01:48] LABS: ALBUMIN 3.6 g/dL (3.4-5.0); ALBUMIN/GLOBULIN RATIO 0.9 (1.0-1.7); TOTAL BILIRUBIN 0.3 mg/dL (0.2-1.0); TOTAL PROTEIN 7.6 g/dL (6.4-8.2)
--- NOTE | 2021-11-02 02:14 | PHYS DOC ---
Past Medical History Past Medical History: Bipolar, COPD, Depression, High Cholesterol, Heart Disease, Stroke, Other Additional Past Medical Histor: ALZHEIMERS, INSOMNIA, HYPERLIPIDEMIA, OSTEOPOROSIS Past Surgical History: Appendectomy Additional Past Surgical Histo: OVARIAN TUMOR, Smoking Status: Current Every Day Smoker Alcohol Use: None Drug Use: None General Adult EDM: Chief Complaint: SHORTNESS OF BREATH HPI: HPI: Patient is a 65 year old female who presents with complaint of difficulty sleeping and anxiety. Patient was sent to the emergency department from her shelter after she had started complaining of shortness of breath. The pat ient states that she is currently not experiencing shortness of breath but had been feeling that way due to not being able to sleep. Noted history of anxiety and depression. Denies fevers or productive cough. Currently denies suicidal or homicidal ideation. Notes occasional nausea but has had no vomiting. Review of Systems: Review of Systems: Constitutional: Denies fever or chills. [] Eyes: Denies change in visual acuity. [] HENT: Denies nasal congestion or sore throat. [] Respiratory: Shortness of breath currently resolved, denies cough. [] Cardiovascular: Denies chest pain or edema. [] GI: Nausea, denies abdominal pain, vomiting, bloody stools or diarrhea. [] : Denies dysuria. [] Musculoskeletal: Denies back pain or joint pain. [] Integument: Denies rash. [] Neurologic: Denies headache, focal weakness or sensory changes. [] Endocrine: Denies polyuria or polydipsia. [] Lymphatic: Denies swollen glands. [] Psychiatric: Anxiety, sleep disturbance. [] Heart Score: C/O Chest Pain: No Risk Factors: Risk Factors: DM, Current or recent (<one month) smoker, HTN, HLP, family history of CAD, obesity. Risk Scores: Score 0 - 3: 2.5% MACE over next 6 weeks - Discharge Home Score 4 - 6: 20.3% MACE over next 6 weeks - Admit for Clinical Observation Score 7 - 10: 72.7% MACE over next 6 weeks - Early Invasive Strategies Allergies: Allergies: Allergies Coded Allergies Type Severity Reaction Last Updated Verified aspirin Allergy Intermediate 10/23/21 Yes codeine Allergy Intermediate 10/23/21 Yes hydrocodone Allergy Intermediate 10/23/21 Yes Physical Exam: PE: Constitutional: Alert, afebrile, no acute distress. [] HENT: Normocephalic, atraumatic, bilateral external ears normal, oropharynx moist, no oral exudates, nose normal. [] Eyes: PERRLA, EOMI, conjunctiva normal, no discharge. [] Neck: Normal range of motion, no tenderness, supple, no stridor. [] Cardiovascular:Heart rate regular rhythm, no murmur [] Lungs & Thorax: Bilateral breath sounds clear to auscultation [] Abdomen: Bowel sounds normal, soft, no tenderness, no masses, no pulsatile masses. [] Skin: Warm, dry, no erythema, no rash. [] Back: No tenderness, no CVA tenderness. [] Extremities: No tenderness, no cyanosis, no clubbing, ROM intact, no edema. [] Neurologic: Alert and oriented X 3, normal motor function, normal sensory function, no focal deficits noted. [] Psychologic: Affect normal, judgement normal, mood anxious. [] Current Patient Data: Labs: Laboratory Tests Test 11/02/21 01:25 11/02/21 01:30 Urine Collection Type Unknown Urine Color Yellow Urine Clarity Clear Urine pH 6.0 (<5.0-8.0) Urine Specific Bradley 1.020 (1.000-1.030) Urine Protein Negative mg/dL (NEG-TRACE) Urine Glucose (UA) Negative mg/dL (NEG) Urine Ketones (Stick) Negative mg/dL (NEG) Urine Blood Negative (NEG) Urine Nitrite Negative (NEG) Urine Bilirubin Negative (NEG) Urine Urobilinogen Dipstick 0.2 mg/dL (0.2 mg/dL) Urine Leukocyte Esterase Small (NEG) Urine RBC 0 /HPF (0-2) Urine WBC 11-20 /HPF (0-4) Urine Squamous Epithelial Cells Many /LPF Urine Bacteria Few /HPF (0-FEW) Urine Mucus Slight /LPF White Blood Count 10.8 x10^3/uL (4.0-11.0) Red Blood Count 3.59 x10^6/uL (3.50-5.40) Hemoglobin 10.0 g/dL (12.0-15.5) L Hematocrit 29.7 % (36.0-47.0) L Mean Corpuscular Volume 83 fL (79-100) Mean Corpuscular Hemoglobin 28 pg (25-35) Mean Corpuscular Hemoglobin Concent 34 g/dL (31-37) Red Cell Distribution Width 15.3 % (11.5-14.5) H Platelet Count 520 x10^3/uL (140-400) H Neutrophils (%) (Auto) 67 % (31-73) Lymphocytes (%) (Auto) 24 % (24-48) Monocytes (%) (Auto) 6 % (0-9) Eosinophils (%) (Auto) 2 % (0-3) Basophils (%) (Auto) 1 % (0-3) Neutrophils # (Auto) 7.3 x10^3/uL (1.8-7.7) Lymphocytes # (Auto) 2.6 x10^3/uL (1.0-4.8) Monocytes # (Auto) 0.7 x10^3/uL (0.0-1.1) Eosinophils # (Auto) 0.2 x10^3/uL (0.0-0.7) Basophils # (Auto) 0.1 x10^3/uL (0.0-0.2) Sodium Level 123 mmol/L (136-145) L Potassium Level 3.3 mmol/L (3.5-5.1) L Chloride Level 88 mmol/L (98-107) L Carbon Dioxide Level 26 mmol/L (21-32) Anion Gap 9 (6-14) Blood Urea Nitrogen 4 mg/dL (7-20) L Creatinine 0.6 mg/dL (0.6-1.0) Estimated GFR (Cockcroft-Gault) 101.0 BUN/Creatinine Ratio 7 (6-20) Glucose Level 104 mg/dL (70-99) H Calcium Level 8.4 mg/dL (8.5-10.1) L Total Bilirubin 0.3 mg/dL (0.2-1.0) Aspartate Amino Transferase (AST) 19 U/L (15-37) Alanine Aminotransferase (ALT) 31 U/L (14-59) Alkaline Phosphatase 91 U/L (46-116) Total Protein 7.6 g/dL (6.4-8.2) Albumin 3.6 g/dL (3.4-5.0) Albumin/Globulin Ratio 0.9 (1.0-1.7) L Laboratory Tests 11/02/21 01:30 Laboratory Tests 11/02/21 01:30 Vital Signs: Vital Signs Date Time Temp Pulse Resp B/P (MAP) Pulse Ox O2 Delivery O2 Flow Rate FiO2 11/02/21 00:30 97.8 93 24 126/56 (79) 99 Room Air 97.8 EKG: EKG: Not performed [] Radiology/Procedures: Radiology/Procedures: Not performed [] Course & Med Decision Making: Course & Med Decision Making Pertinent Labs and Imaging studies reviewed. (See chart for details) Blood work was obtained from the patient. Vital signs remained stable while in the emergency department. Prior to receiving blood work, the patient was screened by the psychiatric assessment team screener regarding her reported problems of anxiety. The patient did not report suicidal or homicidal ideation. The psychiatric assessment team screener noted that patient would not need admission for psychiatric care but recommended adjustment of home medication regimen as long as patient was medically cleared to leave the emergency department. Patient's blood work however was significant for a very low sodium level. IV access was obtained and patient was initiated on IV saline therapy. She is otherwise alert and able to converse without difficulty at this time. The patient will need admission to the hospital for further care. Patient admitted to Dr. Avila. [] Telma Disclaimer: Telma Disclaimer: This electronic medical record was generated, in whole or in part, using a voice recognition dictation system. Departure Departure Impression: Primary Impression: Hyponatremia Disposition: ADMITTED INPATIENT Admitting Physician: CORTNEY Condition: GUARDED Referrals: RICHARD MEJIA MD (PCP) RICHARD RICHARDSON MD Nov 02, 2021 02:14
[2021-11-02] MEDS ORDERED: ONDANSETRON PF 4 MG/2 ML VIAL. IVP PRN (04:00)
--- NOTE | 2021-11-02 04:24 | RAD ---
EXAMINATION: Chest radiograph. VIEWS: 1 COMPARISON: None INDICATION:65 years, Female, shortness of breath. FINDINGS: Normal cardiomediastinal silhouette. No focal consolidation. No pleural effusion or pneumothorax. No acute osseous process. IMPRESSION: No acute cardiopulmonary process. Electronically signed by: Colleen Echevarria MD (11/02/2021 4:22 AM) [facility]
[2021-11-02 05:05] VITALS: BP 133/64
[2021-11-02] MEDS ORDERED: METF10007 PO (05:38)
[2021-11-02] MEDS ORDERED: CARI1.5C PO (05:38)
[2021-11-02] MEDS ORDERED: HYDR50CA PO (05:38)
[2021-11-02] MEDS ORDERED: MENT1ADH29 TP (05:38)
[2021-11-02] MEDS ORDERED: NYST15CR2 TP (05:38)
[2021-11-02] MEDS ORDERED: BUSP10TA PO (05:38)
[2021-11-02] MEDS ORDERED: LURA20TA PO (05:38)
[2021-11-02] MEDS ORDERED: GUAI237L83 PO (05:38)
[2021-11-02] MEDS ORDERED: LOPE-101 PO (05:38)
[2021-11-02] MEDS ORDERED: ALEN70TA71 PO (05:38)
[2021-11-02] MEDS ORDERED: LORA0.5T96 PO (05:38)
[2021-11-02] MEDS ORDERED: AMIT75TA PO (05:38)
[2021-11-02] MEDS ORDERED: BENZ11.94 MM (05:38)
[2021-11-02] MEDS: IV NORMAL SALINE 1000ML BAG 1,000 ML IV SCH ×2 (06:01→12:00)
[2021-11-02 07:00] VITALS: BP 163/50
[2021-11-02] MEDS ORDERED: traMADol 50 MG TABLET PO PRN (10:00)
[2021-11-02] MEDS ORDERED: CYCLOBENZAPRINE 10 MG TABLET. PO PRN (10:00)
[2021-11-02] MEDS ORDERED: LORazepam 0.5 MG TABLET PO PRN (10:00)
[2021-11-02] MEDS ORDERED: PROCHLORPERAZINE 10 MG/2 ML VIAL. IVP PRN (10:15)
[2021-11-02] MEDS ORDERED: ZOLPIDEM 5 MG TABLET. PO PRN (10:15)
[2021-11-02] MEDS ORDERED: ELECTROLYTE (NON-ICU) PROTOCOL. MC PRN (10:15)
[2021-11-02 10:51] LABS: CALCIUM 8.6 mg/dL (8.5-10.1); CREATININE 0.4 mg/dL (0.6-1.0); GFR 161.2; POTASSIUM 3.7 mmol/L (3.5-5.1)
--- NOTE | 2021-11-02 10:59 | PDOC1 ---
History and Physical Date of Service: DOS: DATE: 11/02/21 TIME: 10:51 Chief Complaint: Chief Complain: insomnia History of Present Illness: HPI: Patient is a 65 year old female who presents with complaint of difficulty sleeping and anxiety. Patient was sent to the emergency department from her [facility] after she had started complaining of shortness of breath. The patient states that she is currently not experiencing shortness of breath. On further elicitation apparently her facility sent her here for psych med adj ustment. This is not something we perform here due to no psychiatry staff. Patient was found to have hyponatremia suspect secondary to dehydration leading to admission. We will try to correct this and then patient can go back to facility. Past Medical/Surgical History: PMH/PSH: Past Medical History: Bipolar, COPD, Depression, High Cholesterol, Heart Disease, Stroke Additional Past Medical Histor: ALZHEIMERS, INSOMNIA, HYPERLIPIDEMIA, OSTEOPOROSIS Past Surgical History: Appendectomy Additional Past Surgical Histo: OVARIAN TUMOR, Smoking Status: Current Every Day Smoker Alcohol Use: None Drug Use: None Allergies: Allergies: Coded Allergies: aspirin (Verified Allergy, Intermediate, 10/23/21) codeine (Verified Allergy, Intermediate, 10/23/21) hydrocodone (Verified Allergy, Intermediate, 10/23/21) Family History: Family History: HTN Current Medications: Current Medications Current Medications Lorazepam (Ativan Inj) 1 mg 1X ONCE IVP ; Start 11/02/21 at 02:30; Stop 11/02/21 at 02:26; Status DC Lorazepam (Ativan) 1 mg 1X ONCE PO Last administered on 11/02/21at 02:36; Start 11/02/21 at 03:00; Stop 11/02/21 at 03:01; Status DC Ondansetron HCl (Zofran) 4 mg PRN Q8HRS PRN IVP NAUSEA/VOMITING 1ST CHOICE; Start 11/02/21 at 04:00; Stop 11/02/21 at 10:28; Status DC Sodium Chloride 1,000 ml @ 125 mls/hr Q8H IV Last administered on 11/02/21at 06:01; Start 11/02/21 at 04:00; Stop 11/03/21 at 03:59 Amlodipine Besylate (Norvasc) 5 mg DAILY PO ; Start 11/02/21 at 11:00 Atorvastatin Calcium (Lipitor) 40 mg QHS PO ; Start 11/02/21 at 21:00 Buspirone HCl (Buspar) 10 mg BID PO ; Start 11/02/21 at 11:00 Cetirizine HCl (ZyrTEC) 10 mg DAILY PO ; Start 11/02/21 at 11:00 Clopidogrel Bisulfate (Plavix) 75 mg DAILY PO ; Start 11/02/21 at 11:00 Cyclobenzaprine HCl (Flexeril) 10 mg PRN TID PRN PO MUSCLE PAIN; Start 11/02/21 at 10:00 Docusate Sodium (Colace) 100 mg Q12HR PO ; Start 11/02/21 at 11:00 Famotidine (Pepcid) 20 mg DAILY PO ; Start 11/02/21 at 11:00 Furosemide (Lasix) 20 mg DAILY PO ; Start 11/02/21 at 11:00 Hydralazine HCl (Apresoline) 25 mg TID PO ; Start 11/02/21 at 11:00 Lorazepam (Ativan) 0.5 mg PRN Q6HRS PRN PO ANXIETY / AGITATION; Start 11/02/21 at 10:00 Memantine (Namenda) 10 mg BID PO ; Start 11/02/21 at 11:00 Polyethylene Glycol (miraLAX PACKET) 17 gm DAILY PO ; Start 11/02/21 at 11:00 Tramadol HCl (Ultram) 50 mg PRN Q6HRS PRN PO PAIN; Start 11/02/21 at 10:00 Non-Formulary Medication (Alendronate Sodium ) 70 mg QM PO ; Start 11/06/21 at 16:00; Status UNV Non-Formulary Medication (Cariprazine Hydrochloride (Vraylar)) 1.5 mg DAILY PO ; Start 11/03/21 at 09:00; Status UNV Non-Formulary Medication (Fluticasone/ Salmeterol (Advair 100-50 Diskus)) 1 puff BID IH ; Start 11/02/21 at 21:00; Status UNV Hydroxyzine HCl (Atarax) 50 mg BID PO ; Start 11/02/21 at 11:00 Lurasidone HCl (Latuda) 20 mg DAILYWBKFT PO ; Start 11/02/21 at 12:00 Metformin HCl (Glucophage) 1,000 mg BIDWMEALS PO ; Start 11/02/21 at 12:00 Sertraline HCl (Zoloft) 100 mg DAILY PO ; Start 11/02/21 at 11:00 Prochlorperazine Edisylate (Compazine) 10 mg PRN Q6HRS PRN IVP NAUSEA/VOMITING (2nd Choice); Start 11/02/21 at 10:15 Zolpidem Tartrate (Ambien) 5 mg PRN QHS PRN PO INSOMNIA, MAY REPEAT IN 1HR; Start 11/02/21 at 10:15 Info (Non-Icu Electrolyte Protocol) 1 ea PRN DAILY PRN MC SEE COMMENTS; Start 11/02/21 at 10:15 Heparin Sodium (Porcine) (Heparin Sodium) 5,000 unit Q8HRS SQ ; Start 11/02/21 at 11:00 Albuterol Sulfate (Ventolin Neb Soln) 2.5 mg Q6HRS NEB ; Start 11/02/21 at 12:00 Budesonide (Pulmicort) 0.5 mg RTBID NEB ; Start 11/02/21 at 20:00 Active Scripts Active Tramadol Hcl 50 Mg Tablet 50 Mg PO PRN Q6HRS PRN 6 Days Cetirizine Hcl 10 Mg Tablet 10 Mg PO DAILY 30 Days Hydralazine Hcl 25 Mg Tablet 25 Mg PO TID 30 Days Amlodipine Besylate 5 Mg Tablet 5 Mg PO DAILY 30 Days Reported Vraylar (Cariprazine Hydrochloride) 1.5 Mg Capsule 1.5 Mg PO DAILY Vistaril (Hydroxyzine Pamoate) 50 Mg Capsule 50 Mg PO BID Robitussin Cough-Chest Dm Liq (Guaifenesin/Dextromethorphan) 237 Ml Liquid 5 Ml PO PRN Q4HRS PRN Nystatin-Triamcinolone Cream (Nystatin/Triamcin) 15 Gm Cream..g. 1 Christine TP PRN BID PRN [place] Ultra Strength (Menthol) 1 Each Adh..patch 1 Each TP PRN Q6HRS PRN Metformin Hcl 1,000 Mg Tablet 1,000 Mg PO BIDWMEALS Latuda (Lurasidone Hcl) 20 Mg Tablet 20 Mg PO DAILY Imodium A-D (Loperamide HCl) 2 Mg Capsule 2 Mg PO PRN Q4HRS PRN Buspirone Hcl 10 Mg Tablet 10 Mg PO BID Orajel 3X Toothache-Gum Gel (Benzocaine/Menthol/Zinc Chlor) 11.9 Gm Gel..gram. 0.1 Ml MM PRN Q1HR PRN Ativan (Lorazepam) 0.5 Mg Tablet 0.5 Mg PO PRN Q6HRS PRN Amitriptyline Hcl 75 Mg Tablet 75 Mg PO QHS Alendronate Sodium 70 Mg Tablet 70 Mg PO QM Clopidogrel (Clopidogrel Bisulfate) 75 Mg Tablet 1 Tab PO DAILY Famotidine 20 Mg Tablet 20 Mg PO DAILY Senokot (Sennosides) 8.6 Mg Tablet 2 Tab PO HS Miralax (Polyethylene Glycol 3350) 17 Gm Powd.pack 1 Pkt PO DAILY Zoloft (Sertraline Hcl) 100 Mg Tablet 1 Tab PO DAILY Tylenol (Acetaminophen) 325 Mg Tablet 650 Mg PO PRN Q6HRS PRN Tums (Calcium Carbonate) 200 Mg Tab.chew 500 Mg PO PRN Q2HRS PRN Namenda (Memantine Hcl) 10 Mg Tablet 10 Mg PO BID Furosemide 20 Mg Tablet 20 Mg PO DAILY Advair 100-50 Diskus (Fluticasone/Salmeterol) 1 Each Disk.w.dev 1 Puff IH BID Cyclobenzaprine Hcl 10 Mg Tablet 1 Tab PO TID PRN Colace (Docusate Sodium) 100 Mg Capsule 100 Mg PO Q12HR Atorvastatin Calcium 40 Mg Tablet 40 Mg PO DAILY Proair Hfa Inhaler (Albuterol Sulfate) 8.5 Gm Hfa.aer.ad 2 Puff INH PRN Q4HRS PRN ROS: Review of Systems Review of System Inaccurate patient frequently changing story Physical Exam: Vital Signs: Vital Signs Date Time Temp Pulse Resp B/P (MAP) Pulse Ox O2 Delivery O2 Flow Rate FiO2 11/02/21 08:00 Room Air 11/02/21 07:00 97.8 88 18 163/50 (87) 96 97.8 Physcial Exam: GEN: No apparent distress. HEENT: Normal cephalic, atraumatic, external auditory canals are patent EYES: Extraocular muscles are intact, pupil are equally round and reactive to light and accommodation MUSCULOSKELETAL: Well developed , well nourished, good range of motion ENDOCRINE: No thyromegaly was palpated LYMPHATICS: No cervical chain or axillary nodes were noted HEMATOPOIETIC: No bruising NECK: Supple, no JVD, no thyromegaly was noted LUNGS: Clear to auscultation in all lung ma without rhonchi or wheezing HEART: RRR, S!, S2 present. Peripheral pulses intact, no obvious murmurs noted ABDOMEN: Soft, nontender. Positive bowel sounds, no organomegaly, normal b owel sounds EXTREMITIES: Without clubbing, cyanosis, or edema. Pedal pulses intact. Negative Homans sign NEUROLOGIC: Normal speech and tone. A&O x 3, moves all extremities, no obvious focal deficits PSYCHIATRIC: Normal affect, normal mood. Stable SKIN: No ulcerations or rashes, good skin turgor, no jaundice VASCULAR: Good capillary refill, neurovascular bundle appears to be intact Labs: Labs: Laboratory Tests Test 11/02/21 01:25 11/02/21 01:30 Urine Collection Type Unknown Urine Color Yellow Urine Clarity Clear Urine pH 6.0 (<5.0-8.0) Urine Specific Fithian 1.020 (1.000-1.030) Urine Protein Negative mg/dL (NEG-TRACE) Urine Glucose (UA) Negative mg/dL (NEG) Urine Ketones (Stick) Negative mg/dL (NEG) Urine Blood Negative (NEG) Urine Nitrite Negative (NEG) Urine Bilirubin Negative (NEG) Urine Urobilinogen Dipstick 0.2 mg/dL (0.2 mg/dL) Urine Leukocyte Esterase Small (NEG) Urine RBC 0 /HPF (0-2) Urine WBC 11-20 /HPF (0-4) Urine Squamous Epithelial Cells Many /LPF Urine Bacteria Few /HPF (0-FEW) Urine Mucus Slight /LPF White Blood Count 10.8 x10^3/uL (4.0-11.0) Red Blood Count 3.59 x10^6/uL (3.50-5.40) Hemoglobin 10.0 g/dL (12.0-15.5) Hematocrit 29.7 % (36.0-47.0) Mean Corpuscular Volume 83 fL (79-100) Mean Corpuscular Hemoglobin 28 pg (25-35) Mean Corpuscular Hemoglobin Concent 34 g/dL (31-37) Red Cell Distribution Width 15.3 % (11.5-14.5) Platelet Count 520 x10^3/uL (140-400) Neutrophils (%) (Auto) 67 % (31-73) Lymphocytes (%) (Auto) 24 % (24-48) Monocytes (%) (Auto) 6 % (0-9) Eosinophils (%) (Auto) 2 % (0-3) Basophils (%) (Auto) 1 % (0-3) Neutrophils # (Auto) 7.3 x10^3/uL (1.8-7.7) Lymphocytes # (Auto) 2.6 x10^3/uL (1.0-4.8) Monocytes # (Auto) 0.7 x10^3/uL (0.0-1.1) Eosinophils # (Auto) 0.2 x10^3/uL (0.0-0.7) Basophils # (Auto) 0.1 x10^3/uL (0.0-0.2) Sodium Level 123 mmol/L (136-145) Potassium Level 3.3 mmol/L (3.5-5.1) Chloride Level 88 mmol/L (98-107) Carbon Dioxide Level 26 mmol/L (21-32) Anion Gap 9 (6-14) Blood Urea Nitrogen 4 mg/dL (7-20) Creatinine 0.6 mg/dL (0.6-1.0) Estimated GFR (Cockcroft-Gault) 101.0 BUN/Creatinine Ratio 7 (6-20) Glucose Level 104 mg/dL (70-99) Calcium Level 8.4 mg/dL (8.5-10.1) Total Bilirubin 0.3 mg/dL (0.2-1.0) Aspartate Amino Transf (AST/SGOT) 19 U/L (15-37) Alanine Aminotransferase (ALT/SGPT) 31 U/L (14-59) Alkaline Phosphatase 91 U/L (46-116) Total Protein 7.6 g/dL (6.4-8.2) Albumin 3.6 g/dL (3.4-5.0) Albumin/Globulin Ratio 0.9 (1.0-1.7) Laboratory Tests Test 11/02/21 01:25 11/02/21 01:30 Urine Collection Type Unknown Urine Color Yellow Urine Clarity Clear Urine pH 6.0 (<5.0-8.0) Urine Specific Fithian 1.020 (1.000-1.030) Urine Protein Negative mg/dL (NEG-TRACE) Urine Glucose (UA) Negative mg/dL (NEG) Urine Ketones (Stick) Negative mg/dL (NEG) Urine Blood Negative (NEG) Urine Nitrite Negative (NEG) Urine Bilirubin Negative (NEG) Urine Urobilinogen Dipstick 0.2 mg/dL (0.2 mg/dL) Urine Leukocyte Esterase Small (NEG) Urine RBC 0 /HPF (0-2) Urine WBC 11-20 /HPF (0-4) Urine Squamous Epithelial Cells Many /LPF Urine Bacteria Few /HPF (0-FEW) Urine Mucus Slight /LPF White Blood Count 10.8 x10^3/uL (4.0-11.0) Red Blood Count 3.59 x10^6/uL (3.50-5.40) Hemoglobin 10.0 g/dL (12.0-15.5) Hematocrit 29.7 % (36.0-47.0) Mean Corpuscular Volume 83 fL (79-100) Mean Corpuscular Hemoglobin 28 pg (25-35) Mean Corpuscular Hemoglobin Concent 34 g/dL (31-37) Red Cell Distribution Width 15.3 % (11.5-14.5) Platelet Count 520 x10^3/uL (140-400) Neutrophils (%) (Auto) 67 % (31-73) Lymphocytes (%) (Auto) 24 % (24-48) Monocytes (%) (Auto) 6 % (0-9) Eosinophils (%) (Auto) 2 % (0-3) Basophils (%) (Auto) 1 % (0-3) Neutrophils # (Auto) 7.3 x10^3/uL (1.8-7.7) Lymphocytes # (Auto) 2.6 x10^3/uL (1.0-4.8) Monocytes # (Auto) 0.7 x10^3/uL (0.0-1.1) Eosinophils # (Auto) 0.2 x10^3/uL (0.0-0.7) Basophils # (Auto) 0.1 x10^3/uL (0.0-0.2) Sodium Level 123 mmol/L (136-145) Potassium Level 3.3 mmol/L (3.5-5.1) Chloride Level 88 mmol/L (98-107) Carbon Dioxide Level 26 mmol/L (21-32) Anion Gap 9 (6-14) Blood Urea Nitrogen 4 mg/dL (7-20) Creatinine 0.6 mg/dL (0.6-1.0) Estimated GFR (Cockcroft-Gault) 101.0 BUN/Creatinine Ratio 7 (6-20) Glucose Level 104 mg/dL (70-99) Calcium Level 8.4 mg/dL (8.5-10.1) Total Bilirubin 0.3 mg/dL (0.2-1.0) Aspartate Amino Transf (AST/SGOT) 19 U/L (15-37) Alanine Aminotransferase (ALT/SGPT) 31 U/L (14-59) Alkaline Phosphatase 91 U/L (46-116) Total Protein 7.6 g/dL (6.4-8.2) Albumin 3.6 g/dL (3.4-5.0) Albumin/Globulin Ratio 0.9 (1.0-1.7) Assessment/Plan Assessment/Plan Hyponatremia secondary to suspected malnutrition, bipolar COPD depression hypertension hyperlipidemia -Sent from nursing facility complaining of shortness of breath. On arrival patient denying any shortness of breath. Said she had not slept in 12 days. Slept the entire night after arriving to the floor from ER. -Hyponatremic on arrival. Recheck -With this complex of a psych history, I do not feel comfortable adjusting her psych medicines. We do not have staffing for this either -If sodium normalizes will discharge back to facility. Staff at the facility there have capabilities of getting patient outpatient psychiatry -DVT prophylaxis -Regular diet Justifications for Admission Other Justification ISAAC GERARDO MD Nov 02, 2021 10:59
[2021-11-02 11:00] VITALS: BP 159/63
[2021-11-02] MEDS ORDERED: FAMOTIDINE 20 MG TABLET. PO SCH (11:00)
[2021-11-02] MEDS ORDERED: POLYETHYLENE GLYCOL 3350 17 GM PACKET. PO SCH (11:00)
[2021-11-02] MEDS ORDERED: MEMANTINE 10 MG TABLET. PO SCH (11:00)
[2021-11-02] MEDS ORDERED: HEPARIN for SUB-Q USE 5,000 UNIT/ML VIAL. SQ SCH (11:00)
[2021-11-02] MEDS ORDERED: SERTRALINE 50 MG TABLET. PO SCH (11:00)
[2021-11-02] MEDS ORDERED: CETIRIZINE HCL 10 MG TABLET. PO SCH (11:00)
[2021-11-02] MEDS ORDERED: busPIRone 10 MG TABLET. PO SCH (11:00)
[2021-11-02] MEDS ORDERED: DOCUSATE SODIUM 100 MG CAPSULE. PO SCH (11:00)
[2021-11-02] MEDS ORDERED: CLOPIDOGREL BISULFATE 75 MG TABLET PO SCH (11:00)
[2021-11-02] MEDS ORDERED: hydrOXYzine 25 MG TABLET PO SCH (11:00)
[2021-11-02] MEDS ORDERED: hydrALAZINE 25 MG TABLET PO SCH (11:00)
[2021-11-02] MEDS ORDERED: FUROSEMIDE 20 MG TABLET PO SCH (11:00)
--- NOTE | 2021-11-02 11:03 | SNU/HH DC ---
DISCHARGE ORDERS DISCHARGE INFORMATION: DISCHARGE DATE: Nov 02, 2021 FINAL DIAGNOSIS Problems Medical Problems: (1) Anxiety Status: Acute (2) Sleep disturbance Status: Acute CONDITION ON DISCHARGE: Stable CODE STATUS: Code Status: Full HALFWAY: SNF STAY <30 DAYS: No POST DISCHARGE ORDERS: ACTIVITY ORDERS: No restrictions, Activity as tolerated WEIGHT BEARING STATUS: No restrictions, As tolerated DIET AFTER DISCHARGE: Regular CHECKS AFTER DISCHARGE: CHECKS AFTER DISCHARGE: Check blood press - daily, Check your Temp as needed FOLLOW-UP: LAB ORDERS FOR FOLLOW-UP: recheck sodium in 24h TREATMENT/EQUIPMENT ORDERS: ADAPTIVE EQUIPMENT NEEDED: None RESPIRATORY EQUIPMENT NEEDED: Nebulizer DISCHARGE MEDICATIONS: Home Meds Active Scripts Tramadol Hcl (TRAMADOL HCL) 50 Mg Tablet, 50 MG PO PRN Q6HRS PRN for PAIN for 6 Days, #18 TAB Prov:ISAAC WOOD MD 09/02/19 Cetirizine Hcl (CETIRIZINE HCL) 10 Mg Tablet, 10 MG PO DAILY for allergies for 30 Days, #30 TAB 2 Refills Prov:ISAAC WOOD MD 10/16/18 Hydralazine Hcl (HYDRALAZINE HCL) 25 Mg Tablet, 25 MG PO TID for HTN for 30 Days, #90 TAB 2 Refills Prov:ISAAC WOOD MD 10/16/18 Amlodipine Besylate (AMLODIPINE BESYLATE) 5 Mg Tablet, 5 MG PO DAILY for HTN for 30 Days, #30 TAB 2 Refills Prov:ISAAC WOOD MD 10/16/18 Reported Medications Cariprazine Hydrochloride (Vraylar) 1.5 Mg Capsule, 1.5 MG PO DAILY for bipolar, CAP 11/02/21 Hydroxyzine Pamoate (VISTARIL) 50 Mg Capsule, 50 MG PO BID for anxiety, CAP 11/02/21 Guaifenesin/Dextromethorphan (Robitussin Cough-Chest Dm Liq) 237 Ml Liquid, 5 ML PO PRN Q4HRS PRN for COUGH, LIQUID 11/02/21 Nystatin/Triamcin (NYSTATIN-TRIAMCINOLONE CREAM) 15 Gm Cream..g., 1 MANNY TP PRN BID PRN for ITCHING, EACH 11/02/21 Menthol (BENGAY ULTRA STRENGTH) 1 Each Adh..patch, 1 EACH TP PRN Q6HRS PRN for PAIN, PATCH 11/02/21 Metformin Hcl (METFORMIN HCL) 1,000 Mg Tablet, 1000 MG PO BIDWMEALS for dm, TAB 11/02/21 Lurasidone Hcl (LATUDA) 20 Mg Tablet, 20 MG PO DAILY for bipolar, TAB 11/02/21 Loperamide HCl (Imodium A-D) 2 Mg Capsule, 2 MG PO PRN Q4HRS PRN for DIARRHEA, CAP 11/02/21 Buspirone Hcl (BUSPIRONE HCL) 10 Mg Tablet, 10 MG PO BID for anxiety, TAB 11/02/21 Benzocaine/Menthol/Zinc Chlor (Orajel 3X Toothache-Gum Gel) 11.9 Gm Gel..gram., 0.1 ML MM PRN Q1HR PRN for PAIN, EACH 11/02/21 Lorazepam (ATIVAN) 0.5 Mg Tablet, 0.5 MG PO PRN Q6HRS PRN for ANXIETY / AGITATIO N, TAB 11/02/21 Amitriptyline Hcl (AMITRIPTYLINE HCL) 75 Mg Tablet, 75 MG PO QHS for insomnia, TAB 11/02/21 Alendronate Sodium (ALENDRONATE SODIUM) 70 Mg Tablet, 70 MG PO QM for osteoporosis, TAB 11/02/21 Clopidogrel Bisulfate (CLOPIDOGREL) 75 Mg Tablet, 1 TAB PO DAILY for anticoagulant, #90 TAB 1 Refill 11/02/19 Famotidine (FAMOTIDINE) 20 Mg Tablet, 20 MG PO DAILY for heartburn, TAB 11/02/19 Sennosides (SENOKOT) 8.6 Mg Tablet, 2 TAB PO HS for constipation, #40 TAB 10/10/18 Polyethylene Glycol 3350 (MIRALAX) 17 Gm Powd.pack, 1 PKT PO DAILY for constipation, PKT 10/10/18 Sertraline Hcl (ZOLOFT) 100 Mg Tablet, 1 TAB PO DAILY for depression, #30 TAB 5 Refills 08/30/18 Acetaminophen (TYLENOL) 325 Mg Tablet, 650 MG PO PRN Q6HRS PRN for PAIN, TAB 08/30/18 Calcium Carbonate (TUMS) 200 Mg Tab.chew, 500 MG PO PRN Q2HRS PRN for upset sto mach, TAB.CHEW 08/30/18 Memantine Hcl (NAMENDA) 10 Mg Tablet, 10 MG PO BID for alzhemier's disease, TAB 08/30/18 Furosemide (FUROSEMIDE) 20 Mg Tablet, 20 MG PO DAILY for edema, TAB 08/30/18 Fluticasone/Salmeterol (ADVAIR 100-50 DISKUS) 1 Each Disk.w.dev, 1 PUFF IH BID for asthma, #1 INHALER 5 Refills 08/30/18 Cyclobenzaprine Hcl (CYCLOBENZAPRINE HCL) 10 Mg Tablet, 1 TAB PO TID PRN for PAIN, #90 TAB 08/30/18 Docusate Sodium (COLACE) 100 Mg Capsule, 100 MG PO Q12HR for constipation, CAP 08/30/18 Atorvastatin Calcium (ATORVASTATIN CALCIUM) 40 Mg Tablet, 40 MG PO DAILY for FOR CHOLESTEROL, #30 TAB 0 Refills 08/30/18 Albuterol Sulfate (PROAIR HFA INHALER) 8.5 Gm Hfa.aer.ad, 2 PUFF INH PRN Q4HRS PRN for SHORTNESS OF BREATH, INHALER 0 Refills 08/30/18 ISAAC GERARDO MD Nov 02, 2021 11:03
[2021-11-02 11:46] VITALS: BP 159/63
--- NOTE | 2021-11-02 11:58 | NUR ---
SS following for discharge planning. SS reviewed pt chart and discussed with pt RN. Pt is currently on room air. Pt is resident from [facility], ; fax [phone]. Discharge orders received for return to facility. Discharge orders and clinical phoned and faxed to [facility]. Pt will discharge today and go to [facility] at 1430 via [employer], . Packet on chart. Pt's RN notified.
[2021-11-02] MEDS ORDERED: LURASIDONE 40 MG TABLET. PO SCH (12:00)
[2021-11-02] MEDS ORDERED: ALBUTEROL SULFATE 2.5 MG/3 ML NEBU. NEB SCH (12:00)
[2021-11-02] MEDS ORDERED: metFORMIN 500 MG TABLET PO SCH (12:00)
--- NOTE | 2021-11-02 14:13 | NUR ---
Discharge Note: PT DISCHARGED TO [facility]. PT LEFT FACILITY VIA [facility] TRANSPORT. PT STABLE AND ALERT UPON DISCHARGE. PT PIV REMOVED FROM R AC WITHOUT COMPLICATIONS, BANDAGE APPLIED. TELE MONITOR REMOVED. REPORT CALLED TO BALJINDER STANTON AT 1330. NO CONCERNS VOICED ABOUT DISCHARGE. PT LEFT WITH ALL PERSONAL BELONGINGS. SAIMA CARPENTER Discharge instructions and discharge home medications reviewed with Patient and a copy given. All questions have been answered and understanding verbalized.
[2021-11-02] MEDS ORDERED: BUDESONIDE 0.5 MG/2 ML NEBU. NEB SCH (20:00)
[2021-11-02] MEDS ORDERED: ATORVASTATIN CALCIUM 40 MG TABLET. PO SCH (21:00)
[2021-11-02] MEDS ORDERED: NON FORMULARY ITEM (Fluticasone/Salmeterol (Advair 100-50 Diskus) 1 PUFF) IH SCH (21:00)
[2021-11-03] MEDS ORDERED: CARIPRAZINE HYDROCHLORIDE 1.5 MG PO SCH (09:00)
--- NOTE | 2021-11-05 16:04 | PDOC3 ---
[facility]-Discharge Summary Date of Admission: Date of Admission: Nov 02, 2021 Date of Discharge: Date of Discharge: Nov 02, 2021 Admission Diagnosis: Admitting Diagnosis: Hyponatremia Hospital Course: Hospital Course: History of Present Illness: HPI: Patient is a 65 year old female who presents with complaint of difficulty sleeping and anxiety. Patient was sent to the emergency department from her senior living after she had started complaining of shortness of breath. The patient states that she is currently not experiencing shortness of breath. On further elicitation apparently her facility sent her here for psych med adjustment. This is not something we perform here due to no psychiatry staff. Patient was found to have hyponatremia suspect secondary to dehydration leading to admission. We will try to correct this and then patient can go back to facility. Hyponatremia improved. Patient was discharged back to facility today. Disposition: Disposition/Orders: D/C to Home Activity: Activity: Resume previous activity Diet: Diet: Regular Medications: Home Meds Active Scripts Tramadol Hcl (TRAMADOL HCL) 50 Mg Tablet, 50 MG PO PRN Q6HRS PRN for PAIN for 6 Days, #18 TAB Prov:ISAAC WOOD MD 09/02/19 Cetirizine Hcl (CETIRIZINE HCL) 10 Mg Tablet, 10 MG PO DAILY for allergies for 30 Days, #30 TAB 2 Refills Prov:ISAAC WOOD MD 10/16/18 Hydralazine Hcl (HYDRALAZINE HCL) 25 Mg Tablet, 25 MG PO TID for HTN for 30 Days, #90 TAB 2 Refills Prov:ISAAC WOOD MD 10/16/18 Amlodipine Besylate (AMLODIPINE BESYLATE) 5 Mg Tablet, 5 MG PO DAILY for HTN for 30 Days, #30 TAB 2 Refills Prov:ISAAC WOOD MD 10/16/18 Reported Medications Cariprazine Hydrochloride (Vraylar) 1.5 Mg Capsule, 1.5 MG PO DAILY for bipolar, CAP 11/02/21 Hydroxyzine Pamoate (VISTARIL) 50 Mg Capsule, 50 MG PO BID for anxiety, CAP 11/02/21 Guaifenesin/Dextromethorphan (Robitussin Cough-Chest Dm Liq) 237 Ml Liquid, 5 ML PO PRN Q4HRS PRN for COUGH, LIQUID 11/02/21 Nystatin/Triamcin (NYSTATIN-TRIAMCINOLONE CREAM) 15 Gm Cream..g., 1 MANNY TP PRN BID PRN for ITCHING, EACH 11/02/21 Menthol (BENGAY ULTRA STRENGTH) 1 Each Adh..patch, 1 EACH TP PRN Q6HRS PRN for PAIN, PATCH 11/02/21 Metformin Hcl (METFORMIN HCL) 1,000 Mg Tablet, 1000 MG PO BIDWMEALS for dm, TAB 11/02/21 Lurasidone Hcl (LATUDA) 20 Mg Tablet, 20 MG PO DAILY for bipolar, TAB 11/02/21 Loperamide HCl (Imodium A-D) 2 Mg Capsule, 2 MG PO PRN Q4HRS PRN for DIARRHEA, CAP 11/02/21 Buspirone Hcl (BUSPIRONE HCL) 10 Mg Tablet, 10 MG PO BID for anxiety, TAB 11/02/21 Benzocaine/Menthol/Zinc Chlor (Orajel 3X Toothache-Gum Gel) 11.9 Gm Gel..gram., 0.1 ML MM PRN Q1HR PRN for PAIN, EACH 11/02/21 Lorazepam (ATIVAN) 0.5 Mg Tablet, 0.5 MG PO PRN Q6HRS PRN for ANXIETY / AGITATION, TAB 11/02/21 Amitriptyline Hcl (AMITRIPTYLINE HCL) 75 Mg Tablet, 75 MG PO QHS for insomnia, TAB 11/02/21 Alendronate Sodium (ALENDRONATE SODIUM) 70 Mg Tablet, 70 MG PO QM for osteoporos is, TAB 11/02/21 Clopidogrel Bisulfate (CLOPIDOGREL) 75 Mg Tablet, 1 TAB PO DAILY for anticoagulant, #90 TAB 1 Refill 11/02/19 Famotidine (FAMOTIDINE) 20 Mg Tablet, 20 MG PO DAILY for heartburn, TAB 11/02/19 Sennosides (SENOKOT) 8.6 Mg Tablet, 2 TAB PO HS for constipation, #40 TAB 10/10/18 Polyethylene Glycol 3350 (MIRALAX) 17 Gm Powd.pack, 1 PKT PO DAILY for constipation, PKT 10/10/18 Sertraline Hcl (ZOLOFT) 100 Mg Tablet, 1 TAB PO DAILY for depression, #30 TAB 5 Refills 08/30/18 Acetaminophen (TYLENOL) 325 Mg Tablet, 650 MG PO PRN Q6HRS PRN for PAIN, TAB 08/30/18 Calcium Carbonate (TUMS) 200 Mg Tab.chew, 500 MG PO PRN Q2HRS PRN for upset stomach, TAB.CHEW 08/30/18 Memantine Hcl (NAMENDA) 10 Mg Tablet, 10 MG PO BID for alzhemier's disease, TAB 08/30/18 Furosemide (FUROSEMIDE) 20 Mg Tablet, 20 MG PO DAILY for edema, TAB 08/30/18 Fluticasone/Salmeterol (ADVAIR 100-50 DISKUS) 1 Each Disk.w.dev, 1 PUFF IH BID for asthma, #1 INHALER 5 Refills 08/30/18 Cyclobenzaprine Hcl (CYCLOBENZAPRINE HCL) 10 Mg Tablet, 1 TAB PO TID PRN for PAIN, #90 TAB 08/30/18 Docusate Sodium (COLACE) 100 Mg Capsule, 100 MG PO Q12HR for constipation, CAP 08/30/18 Atorvastatin Calcium (ATORVASTATIN CALCIUM) 40 Mg Tablet, 40 MG PO DAILY for FOR CHOLESTEROL, #30 TAB 0 Refills 08/30/18 Albuterol Sulfate (PROAIR HFA INHALER) 8.5 Gm Hfa.aer.ad, 2 PUFF INH PRN Q4HRS PRN for SHORTNESS OF BREATH, INHALER 0 Refills 08/30/18 Scheduled Alendronate Sodium (Alendronate Sodium), 70 MG PO QM, (Reported) Amitriptyline Hcl (Amitriptyline Hcl), 75 MG PO QHS, (Reported) Amlodipine Besylate (Amlodipine Besylate), 5 MG PO DAILY Atorvastatin Calcium (Atorvastatin Calcium), 40 MG PO DAILY, (Reported) Buspirone Hcl (Buspirone Hcl), 10 MG PO BID, (Reported) Cariprazine Hydrochloride (Vraylar), 1.5 MG PO DAILY, (Reported) Cetirizine Hcl (Cetirizine Hcl), 10 MG PO DAILY Clopidogrel Bisulfate (Clopidogrel), 1 TAB PO DAILY, (Reported) Docusate Sodium (Colace), 100 MG PO Q12HR, (Reported) Famotidine (Famotidine), 20 MG PO DAILY, (Reported) Fluticasone/Salmeterol (Advair 100-50 Diskus), 1 PUFF IH BID, (Reported) Furosemide (Furosemide), 20 MG PO DAILY, (Reported) Hydralazine Hcl (Hydralazine Hcl), 25 MG PO TID Hydroxyzine Pamoate (Vistaril), 50 MG PO BID, (Reported) Lurasidone Hcl (Latuda), 20 MG PO DAILY, (Reported) Memantine Hcl (Namenda), 10 MG PO BID, (Reported) Metformin Hcl (Metformin Hcl), 1,000 MG PO BIDWMEALS, (Reported) Polyethylene Glycol 3350 (Miralax), 1 PKT PO DAILY, (Reported) Sennosides (Senokot), 2 TAB PO HS, (Reported) Sertraline Hcl (Zoloft), 1 TAB PO DAILY, (Reported) Scheduled PRN Acetaminophen (Tylenol), 650 MG PO PRN Q6HRS PRN for PAIN, (Reported) Albuterol Sulfate (Proair Hfa Inhaler), 2 PUFF INH PRN Q4HRS PRN for SHORTNESS OF BREATH, (Reported) Benzocaine/Menthol/Zinc Chlor (Orajel 3X Toothache-Gum Gel), 0.1 ML MM PRN Q1HR PRN for PAIN, (Reported) Calcium Carbonate (Tums), 500 MG PO PRN Q2HRS PRN for upset stomach, (Reported) Cyclobenzaprine Hcl (Cyclobenzaprine Hcl), 1 TAB PO TID PRN for PAIN, (Reported) Guaifenesin/Dextromethorphan (Robitussin Cough-Chest Dm Liq), 5 ML PO PRN Q4HRS PRN for COUGH, (Reported) Loperamide HCl (Imodium A-D), 2 MG PO PRN Q4HRS PRN for DIARRHEA, (Reported) Lorazepam (Ativan), 0.5 MG PO PRN Q6HRS PRN for ANXIETY / AGITATION, (Reported) Menthol (Bengay Ultra Strength), 1 EACH TP PRN Q6HRS PRN for PAIN, (Reported) Nystatin/Triamcin (Nystatin-Triamcinolone Cream), 1 MANNY TP PRN BID PRN for ITCHING, (Reported) Tramadol Hcl (Tramadol Hcl), 50 MG PO PRN Q6HRS PRN for PAIN Justicifation of Admission Dx: Justifications for Admission: Justification of Admission Dx: Yes (hyponatremia) ISAAC GERARDO MD Nov 05, 2021 16:04
[2021-11-06] MEDS ORDERED: NON FORMULARY ITEM (Alendronate Sodium 70 MG) PO SCH (16:00)
== END 2021-11-02 14:10 | DRG 641 ==
LOC: ER 00:30 → 2 NORTH 03:50
PROVIDERS: ADMIT Internal Medicine; ATTEND Internal Medicine
DX: E87.1 Hypo-osmolality and hyponatremia (principal); G30.9 Alzheimer's disease, unspecified; F02.80 Dementia in other diseases classified elsewhere, unspecified severity, without behavioral disturbance, psychotic disturbance, mood disturbance, and anxiety; E78.00 Pure hypercholesterolemia, unspecified; E86.0 Dehydration; E78.5 Hyperlipidemia, unspecified; F41.9 Anxiety disorder, unspecified; G47.00 Insomnia, unspecified; J44.9 Chronic obstructive pulmonary disease, unspecified; M81.0 Age-related osteoporosis without current pathological fracture; Z82.49 Family history of ischemic heart disease and other diseases of the circulatory system; Z86.73 Personal history of transient ischemic attack (TIA), and cerebral infarction without residual deficits; Z87.891 Personal history of nicotine dependence; Z90.49 Acquired absence of other specified parts of digestive tract; Z88.8 Allergy status to other drugs, medicaments and biological substances; F31.9 Bipolar disorder, unspecified
CPT/HCPCS: 36415; 71045; 80048; 80053; 81001; 85025; 87086; 87147; J0780; J7030; 99285-25; G0378